=== PATIENT | male | born 1955 | race Caucasian/White ===

== ENCOUNTER 2024-07-26 12:52 | Emergency (ER) | payer MEDICARE, OTHER, SELFPAY ==
[2024-07-26 12:59] VITALS: BP 110/74; PULSE 68; TEMP 36.7; O2SAT 98; BMI 27.4
--- NOTE | 2024-07-26 13:06 | XR_ITS ---
The [address] [address] Patient Name: SRINIVAS MCKEON MRN: [id number] date: 1955 Sex: M Assigned Patient Location: ED.MAIN Current Patient Location: ED.MAIN Accession/Order Number: [id number] Exam Date: 07/26/2024 13:10 Report Date: 07/26/2024 13:44 At the request of: JUANY DAVIS Procedure: XR chest 1V EXAMINATION: XR chest 1V HISTORY: sob COMPARISON: 05/05/2022 TECHNIQUE: AP portable FINDINGS: LUNGS: No significant pulmonary parenchymal abnormalities. VASCULATURE: No increased pulmonary vasculature. PLEURA: No pneumothorax, effusion, or pleural thickening. CARDIAC: No cardiomegaly or cardiac silhouette abnormality. MEDIASTINUM: No visible mass or adenopathy. BONES: No fracture or visible bone lesion. OTHER: Negative. XR/XR chest 1V IMPRESSION: No acute cardiopulmonary process Electronically authenticated by: ANALILIA TORRES Date: 07/26/2024 13:44
--- NOTE | 2024-07-26 13:06 | ECG_ITS ---
The 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
--- NOTE | 2024-07-26 13:16 | ED_ITS ---
HPI - SOB/Dyspnea General Chief Complaint: Shortness of Breath/Dyspnea Stated Complaint: SENT BY URGENT CARE R/O PE Time Seen by Provider: 07/26/24 13:05 Source: patient Mode of arrival: walk-in Limitations: no limitations History of Present Illness HPI Narrative: 69 year old male presents to the ED for SOB, chest tightness. Onset was around 06/27/24. Denies fever, chills, N/V/D. Reports a mild cough, leg swelling. Denies recent travel or surgery. States he was at an urgent care today; reports a negative chest x-ray. States he was sent to the ED to rule out PE. Reports hx bronchitis. Related Data Home Medications ?Medication ?Instructions ?Recorded ?Confirmed omeprazole magnesium 10 mg oral 10 mg PO DAILY 07/26/24 07/26/24 suspension,delayed release (Prilosec) Previous Rx's ?Medication ?Instructions ?Recorded azithromycin 250 mg tablet See Rx Instructions PO .COMPLEX #6 07/26/24 (Zithromax Z-[place]) tabs benzonatate 200 mg capsule 200 mg PO TID PRN cough #20 caps 07/26/24 prednisone 10 mg tablet See Rx Instructions .Route 07/26/24 .COMPLEX #30 tabs Allergies Allergy/AdvReac Type Severity Reaction Status Date / Time No Known Drug Allergies Allergy Verified 07/26/24 12:59 Review of Systems ROS Constitutional Denies: fever or chills Ears, nose, mouth, and throat Denies: throat pain or neck pain Cardiovascular Reports: swelling of feet/ankles; Denies: chest pain Respiratory Reports: shortness of breath and cough; Denies: wheezing Gastrointestinal Denies: abdominal pain, nausea, vomiting or diarrhea Musculoskeletal Denies: back pain or neck pain Neurological Denies: headache, numbness in extremities or weakness in extremities PFSH PFSH Social History Little interest or pleasure in doing things: not at all Feeling down, depressed, or hopeless: not at all Exam Constitutional Vital Signs, click to edit/add: Last Vital Signs Temp 98.0 F 07/26/24 12:59 Pulse 68 07/26/24 12:59 Resp 18 07/26/24 12:59 BP 110/74 07/26/24 12:59 Pulse Ox 98 07/26/24 12:59 O2 Del Method Room Air 07/26/24 12:59 Common normals: no apparent distress and oriented x3 General appearance: cooperative HENMT Mouth: oral and palatal mucosa normal and lip normal Throat: posterior oropharynx normal Eye Common normals: conjunctivae normal and no scleral icterus Neck & C-Spine Common normals: supple Chest Chest: symmetrical chest wall rise Respiratory Common normals: normal respiratory effort and clear to auscultation bilaterally Effort & inspection: able to speak in complete sentences and symmetric chest movement Cardio Common normals: regular rate and regular rhythm Extremity Other: Minimal swelling bilateral lower legs. Neuro Common normals: oriented x3 and moves all extremities Sensorium/orientation: awake and alert Speech: speech normal Course Vital Signs Vital signs: Vital Signs Temperature 98.0 F 07/26/24 12:59 Pulse Rate 68 07/26/24 12:59 Respiratory Rate 18 07/26/24 12:59 Blood Pressure 110/74 07/26/24 12:59 Pulse Oximetry 98 07/26/24 12:59 Oxygen Delivery Method Room Air 07/26/24 12:59 Temperature 98.0 F 07/26/24 12:59 Pulse Rate 68 07/26/24 12:59 Respiratory Rate 18 07/26/24 12:59 Blood Pressure 110/74 07/26/24 12:59 Pulse Oximetry 98 07/26/24 12:59 Oxygen Delivery Method Room Air 07/26/24 12:59 MDM - SOB/Dyspnea MDM Narrative Medical decision making narrative: CBC and CMP were completed and were unremarkable. BNP was 218. Chest x-ray showed mild subpleural reticulation with a lower lobe predominance; this is nonspecific but could represent early interstitial lung disease. Findings were discussed with the patient. Prescriptions were provided for Zithromax, prednisone, and tessalon perles. He was encouraged to follow up with his pcp for a recheck, further evaluation and treatment. Differential Diagnosis Differential diagnosis: Likely acute exacerbation of chronic obstructive airways disease, congestive heart failure, community acquired pneumonia and other Medical Records Attestation: I reviewed the patient's medical records. Lab Data Attestation: I reviewed the patient's lab results. Labs: Lab Results 07/26/24 Range/Units 13:10 WBC 7.9 (4.0-11.0) 10^3/uL RBC 4.59 L (4.70-6.10) 10^6/uL Hgb 13.6 L (14.0-18.0) g/dL Hct 41.7 L (42.0-54.0) % MCV 90.8 (80.0-94.0) fL MCH 29.6 (25.9-34.0) pg MCHC 32.6 (29.9-35.2) g/dL RDW 12.9 (11.0-15.0) % Plt Count 278 (150-450) 10^3/uL MPV 9.7 (9.5-13.5) fL Neut % (Auto) 72.8 (43.0-75.0) % Lymph % (Auto) 16.5 L (20.5-60.0) % [place] % (Auto) 8.5 (1.7-12.0) % Eos % (Auto) 1.4 (0.9-7.0) % Baso % (Auto) 0.4 (0.2-2.0) % Neut # (Auto) 5.8 (1.4-6.5) 10^3/uL Lymph # (Auto) 1.3 (1.2-3.8) 10^3/uL [place] # (Auto) 0.7 (0.3-0.8) 10^3/uL Eos # (Auto) 0.1 (0.0-0.7) 10^3/uL Baso # (Auto) 0.0 (0.0-0.1) 10^3/uL Abs Immat Gran (auto) 0.03 (0.00-0.03) 10^3/uL Imm/Tot Granulo (auto) 0.4 (0.0-0.5) % Sodium 142 (136-145) mmol/L Potassium 4.6 (3.5-5.1) mmol/L Chloride 106 (98-107) mmol/L Carbon Dioxide 31.3 (21.0-32.0) mmol/L Anion Gap 9.3 BUN 14.0 (7.0-18.0) mg/dL Creatinine 0.92 (0.70-1.30) mg/dL Est GFR ( Amer) >60 (>=60 mL/min/1.73m^2) Est GFR (Non-Af Amer) >60 (>=60 mL/min/1.73m^2) BUN/Creatinine Ratio 15.2 Glucose 95 (74-106) mg/dL Calcium 9.2 (8.5-10.1) mg/dL Total Bilirubin 0.5 (0.2-1.0) mg/dL AST 22 (15-37) U/L ALT 24 (16-63) U/L Alkaline Phosphatase 80 (46-116) U/L Troponin I High Sens 4.9 (4.0-76.1) pg/mL NT-Pro-B Natriuret Pep 218.0 (<=900.0) pg/mL Total Protein 7.1 (6.4-8.2) g/dL Albumin 3.7 (3.4-5.0) g/dL Globulin 3.4 g/dL Albumin/Globulin Ratio 1.1 Imaging Data Chest x-ray: Attestation: I have reviewed the pertinent imaging results. Radiologist's impression: ITS Impressions Chest X-Ray 07/26/24 13:06 IMPRESSION: No acute cardiopulmonary process Electronically authenticated by: ANALILIA TORRES Date: 07/26/2024 13:44 Chest CTA 07/26/24 13:16 IMPRESSION: 1. No pulmonary embolus or other acute abnormality of the chest. 2. Mild subpleural reticulation with a lower lobe predominance. This is nonspecific but could represent early interstitial lung disease. Electronically authenticated by: RADHA NATHAN Date: 07/26/2024 15:02 ECG Data Attestation: ?I have reviewed the pertinent ECG results. (EKG was reviewed by the attending physician. It showed sinus rhythm at a rate of 57; first degree AV block. No acute ST elevation.) Interpretation: Measurements Intervals [place] Rate: 57 P: 53 [place]: 222 QRS: -11 QRSD: 108 T: 17 QT: 408 QTc: 403 Interpretive Statements 1100 Sinus rhythm 2231 First degree AV block 2440 Incomplete right bundle branch block 4068 Nonspecific Twave abnormality 9150 abnormal ECG No previous ECG available for comparison Discharge Plan Discharge Chief Complaint: Shortness of Breath/Dyspnea Clinical Impression: Cough, Dyspnea Patient Disposition: Home, Self-Care Time of Disposition Decision: 15:09 Condition: Good Mode of Transportation: Private Vehicle Prescriptions / Home Meds: New azithromycin [Zithromax Z-[place]] 250 mg tablet See Rx Instructions .ROUTE .COMPLEX Qty: 6 0RF Rx Instructions: For 250 mg dose pack: take 500 mg today (day 1), then 250 mg for 4 days (days 2-5) benzonatate 200 mg capsule 200 mg PO TID PRN (Reason: cough) Qty: 20 0RF prednisone 10 mg tablet See Rx Instructions .ROUTE .COMPLEX Qty: 30 0RF Rx Instructions: Take 5 tablets on days 1-2, 4 tabs on days 3-4, 3 tabs on days 5-6, 2 tabs on days 7-8, 1 tab on days 9-10. No Action Prilosec 10 mg susp,delayed release for recon 10 mg PO DAILY Print Language: Sammarinese Instructions: Upper Respiratory Infection (ED), Dyspnea (ED), Acute Cough (ED) Additional Instructions: Return to the ER for worsening symptoms. Follow up with your primary care provider for a recheck, further evaluation and treatment. Referrals: HERNANDEZ ODONNELL [Primary Care Provider] - 1 week Discharge Date/Time: 07/26/24 15:53
--- NOTE | 2024-07-26 13:16 | CT_ITS ---
[address] [address] Patient Name: SRINIVAS Hill LINDA MRN: [id number] date: 1955 Sex: M Assigned Patient Location: ER Current Patient Location: ER Accession/Order Number: [id number] Exam Date: 07/26/2024 14:00 Report Date: 07/26/2024 15:02 At the request of: LEE OLIVA Procedure: CT angio chest EXAM: CT angio chest HISTORY: SOB; r/o PE COMPARISON: Same day chest radiograph. TECHNIQUE: CT angio chest FINDINGS: OVERALL DIAGNOSTIC QUALITY: Full diagnostic quality LOWER NECK: No abnormality. CHEST: PULMONARY ARTERIES: Negative for pulmonary embolus LUNGS / AIRWAYS / PLEURA: Dependent bibasilar atelectasis. Mild subpleural reticulation with a lower lobe predominance. HEART / OTHER VESSELS: No significant abnormality. MEDIASTINUM / ESOPHAGUS: Small sliding hiatal hernia. LYMPH NODES: None enlarged. CHEST WALL: No significant abnormality. UPPER ABDOMEN: Normal. MUSCULOSKELETAL: No acute abnormality. Mildly exaggerated thoracic kyphosis. CT/CT angio chest IMPRESSION: 1. No pulmonary embolus or other acute abnormality of the chest. 2. Mild subpleural reticulation with a lower lobe predominance. This is nonspecific but could represent early interstitial lung disease. Electronically authenticated by: RADHA NATHAN Date: 07/26/2024 15:02
[2024-07-26 13:33] LABS: Basophils Percent Auto 0.4 % (0.2-2.0); Eosinophils Absolute Auto 0.1 10^3/uL (0.0-0.7); Eosinophils Percent Auto 1.4 % (0.9-7.0); Hematocrit 41.7 % (42.0-54.0); Hemoglobin 13.6 g/dL (14.0-18.0); Immature Granulocytes Abs Auto 0.03 10^3/uL (0.00-0.03); Immature Granulocytes Pct Auto 0.4 % (0.0-0.5); Lymphocytes Absolute Auto 1.3 10^3/uL (1.2-3.8); Lymphocytes Percent Auto 16.5 % (20.5-60.0); Mean Corpuscular HGB Conc 32.6 g/dL (29.9-35.2); Mean Corpuscular Hemoglobin 29.6 pg (25.9-34.0); Mean Corpuscular Volume 90.8 fL (80.0-94.0); Mean Platelet Volume 9.7 fL (9.5-13.5); Monocytes Absolute Auto 0.7 10^3/uL (0.3-0.8); Monocytes Percent Auto 8.5 % (1.7-12.0); Neutrophils Absolute Auto 5.8 10^3/uL (1.4-6.5); Neutrophils Percent Auto 72.8 % (43.0-75.0); Platelet Count 278 10^3/uL (150-450); Red Blood Count 4.59 10^6/uL (4.70-6.10); Red Cell Distribution Width 12.9 % (11.0-15.0); White Blood Count 7.9 10^3/uL (4.0-11.0)
[2024-07-26 13:42] LABS: Alanine Aminotransferase 24 U/L (16-63); Albumin Globulin Ratio 1.1; Albumin Level 3.7 g/dL (3.4-5.0); Alkaline Phosphatase 80 U/L (46-116); Anion Gap 9.3; Aspartate Amino Transferase 22 U/L (15-37); BUN Creatinine Ratio 15.2; Bilirubin Total 0.5 mg/dL (0.2-1.0); Calcium 9.2 mg/dL (8.5-10.1); Carbon Dioxide 31.3 mmol/L (21.0-32.0); Chloride 106 mmol/L (98-107); Estimated GFR (African America >60 (>=60 mL/min/1.73m^2); Estimated GFR (Non-African Ame >60 (>=60 mL/min/1.73m^2); Globulin 3.4 g/dL; Glucose 95 mg/dL (74-106); Potassium 4.6 mmol/L (3.5-5.1); Sodium 142 mmol/L (136-145); Total Protein 7.1 g/dL (6.4-8.2); Troponin I High Sensitivity 4.9 pg/mL (4.0-76.1)
== END 2024-07-26 15:53 | disposition home or self-care (01) ==
PROVIDERS: Nurse Practitioner Family; Emergency Provider Emergency Medicine; PCP Family Medicine
DX: R06.00 Dyspnea, unspecified (principal); R05.9 Cough, unspecified; R07.89 Other chest pain
CPT/HCPCS: 36415; 71045; 71275; 80053; 83880; 84484; 85025; 93005; 99285; Q9967

== ENCOUNTER 2024-08-24 11:30 | Observation (INO) | payer MEDICARE, OTHER, SELFPAY ==
[2024-08-24] VITALS (23 sets, daily range): BP systolic 108–148; BP diastolic 62–92; PULSE 74–92; TEMP 36.7–36.8; O2SAT 81–100; BMI 26.6; BMI 27.9
--- OUTSIDE RECORDS SUMMARY | 2024-08-24 11:37 | XMS_ITS | CCD ---
Author Organization [facility] Care Team Providers Care Intelligence Operations Specialist Name Role Phone DWEIK, RAED Referring Unavailable DWEIK, RAED Referring Unavailable DWEIK, RAED Referring Unavailable DWEIK, RAED Attending Unavailable ALVARADO CALDERON, AWAIS Admitting Unavailable ALVARADO CALDERON, AWAIS Attending Unavailable ALVARADO CALDERON, AWAIS Referring Unavailable ALVARADO CALDERON, AWAIS Referring Unavailable ALVARADO CALDERON, AWAIS Referring Unavailable ALVARADO CALDERON, AWAIS Attending Unavailable ALVARADO CALDERON, AWAIS Referring Unavailable ALVARADO CALDERON, AWAIS Referring Unavailable Chuck Odonnell Primary Care Provider [phone] Agustin Stoll Attending Provider Oledannielle, Agustin Unavailable BELLE, DR NG Admitting Unavailable [place], DR NG Attending Unavailable [place], DR NG Primary Care Unavailable [place], DR ANALILIA Lucero Consulting Unavailable [place], DR NG Consulting Unavailable [facility] A[facility] Consulting Unavailable [place], DR NG Admitting Unavailable [place], DR NG Attending Unavailable [place], DR NG Primary Care Unavailable [place], DR NG Consulting Unavailable [place], DR NG Admitting Unavailable [place], DR NG Attending Unavailable [place], DR NG Primary Care Unavailable [place], DR NG Consulting Unavailable [facility], ETHEL Consulting Unavailable ROSE AHUJA Attending Unavailable NON STAFF Primary Care Provider Unavailanalilia e Bernadette Mercado APRN Attending Provider Bernadette Mercado Admitting Unavailable Bernadette Mercado Attending Unavailable NON STAFF Primary Care Unavailable Medications Current Medications Medication Drug Class(es) Dates Sig (Normalized) Sig (Original) ibuprofen 200 mg oral tablet (2 sources) Nonsteroidal Anti-inflammatory Drug take 3 tablets by mouth twice daily as needed Ibuprofen 200 MG 3 tabs Orally BID prn Active Multivitamin preparation (2 sources) Start: 12-29-2020 take 1 tablet by mouth once daily Multivitamin Active 1 TAB PO Daily December 29, 2020 4:53pm Start: 12-29-2020 take 1 tablet by rosa m th once daily Multivitamin Active 1 TAB PO Daily December 29, 2020 12:00am Multivitamin Tablet (2 sources) Start: 12-29-2020 take 1 tablet by mouth once daily Multivitamin Tablet Active 1 TAB PO Daily December 28, 2020 11:00pm omeprazole 20 mg delayed release oral capsule (6 sources) Proton Pump Inhibitor Start: 12-29-2020 take 1 capsule by mouth once daily Omeprazole 20 mg Capsule,Delayed Release(Dr/Ec) Active 20 MG PO Daily December 28, 2020 11:00pm take 1 capsule by mouth once fredrick ly Omeprazole 40 MG 1 capsule 30 minutes before morning meal Orally Once a day Active Completed/Discontinued Medications Medication Drug Class(es) Dates Sig (Normalized) Sig (Original) acetaminophen 325 mg / oxyCODONE hydrochloride 5 mg oral tablet (2 sources) Opioid Agonist Start: 12-30-2020 take 1 tablet by mouth every four hours as needed for pain Percocet 5-325 MG 1 tablet as needed for pain Orally up to every 4 hrs for 5 days Dec, Not-Taking amoxicillin 875 mg / clavulanate 125 mg oral tablet (2 sources) Penicillin-class Antibacterial Start: 10-24-2023 End: 07-26-2024 take 1 tablet by mouth twice daily Amoxicillin-Pot Clavulanate 875-125 mg tablet Discontinued 1 TAB PO Twice daily 22 04October 23, 2023 11:00pm July 26, 2024 10:40am Problems Active Problems Problem Classification Problem Date Documented Da te Episodic/Chronic Other lower respiratory disease (1 source) Interstitial pulmonary disease, unspecified; Translations: [Interstitial pulmonary disease, unspecified] Onset: 05-01-2018 Chronic Other lower respiratory disease (5 sources) Shortness of breath; Translations: [Shortness of breath] Onset: 05-01-2018 07-26-2024 Episodic Other lower respiratory disease (4 sources) Dyspnea; Translations: [Shortness of breath] 07-26-2024 Episodic Other lower respiratory disease (2 sources) Dyspnea, unspecified; Translations: [Other respiratory abnormalities] 07-26-2024 Episodic Other upper respiratory infections (3 sources) Chronic sinusitis, unspecified; Translations: [Sinusitis] Onset: 05-10-2022 10-24-2023 Chronic Other upper respiratory infections (2 sources) Acute sinusitis; Translations: [Acute sinusitis, unspecified] 10-24-2023 Episodic Unclassified (3 sources) COUGH, UNSPECIFIED; Translations: [COUGH, UNSPECIFIED] Onset: 05-10-2022 Unclassified (3 sources) CONTACT W/AND (SUSP) EXPOS COVID-19; Translations: [CONTACT W/AND (SUSP) EXPOS COVID-19] Onset: 07-08-2021 Past or Other Problems Problem Classification Problem Date Documented Date Episodic/Chronic Intracranial injury (4 sources) Other specified intracranial injury with loss of consciousness of unspecified duration, initial encounter; Translations: [OTH SPECIFIED ICI LOC UNS DUR INIT] Onset: 01-13-2022 Episodic Other injuries and conditions due to external causes (1 source) Injury of cutaneous sensory nerve at forearm level, right arm, subsequent encounter; Translations: [Injury of cutaneous sensory nerve at forearm level, right arm, subsequent encounter S54.31XD] Onset: 04-09-2021 Resolved: 04-09-2021 Episodic Other upper respiratory disease (1 source) Other diseases of bronchus, not elsewhere classified; Translations: [Other diseases of bronchus, not elsewhere classified] Onset: 11-15-2017 Episodic Residual codes; unclassified (1 source) Other specified postprocedural states; Translations: [Other specified postprocedural states Z98.890] Onset: 04-09-2021 Resolved: 04-09-2021 Episodic Sprains and strains (1 source) Strain of muscle, fascia and tendon of other parts of biceps, right arm, subsequent encounter; Translations: [Rupture of right distal biceps tendon, subsequent encounter S46.211D] Onset: 04-09-2021 Resolved: 04-09-2021 Episodic Unclassified (1 source) COUGH, UNSPECIFIED; Translations: [COUGH, UNSPECIFIED] Onset: 05-05-2022 Unclassified (1 source) CONTACT W/AND (SUSP) EXPOS COVID-19; Translations: [CONTACT W/AND (SUSP) EXPOS COVID-19] Onset: 07-02-2021 Results Test Name Value Interpretation Reference Range Facility X-ray reportOrdered By: Carlos Reilly on 07-26-2024 Study report [facility] Main [address] [address] XRay Report Signed Patient: Ab Mae MR#: [id number] : 1955 Acct:[id number] Age/Sex: 69 / M ADM Date: 5 Loc: XDUC [facility] Dr: Bernadette Mercado RENTAL SALES ASSOCIATE Copies to: Bernadette Mercado APRN~ Ordering Provider: Bernadette Mercado APRN Date of Service: 07/26/24 XR/XR chest 2V*: COUGH Plain film chest 2 view HISTORY: Dry cough. Shortness of breath COMPARISON: None FINDINGS: SUPPORT DEVICES: None POSTSURGICAL CHANGES: None HEART: Within normal limits PULMONARY MERRICK: Within normal limits MEDIASTINUM: Unremarkable LUNGS AND PLEURA: No acute lung process, pleural effusion or pneumothorax identified. Minor interstitial changes BONY STRUCTURES: Thoracic spondylosis ADDITIONAL FINDINGS None XR/XR chest 2V* IMPRESSION: No acute process. Impression dictated by: Aram Reilly M.D.07/26/2024 11:27 AM Dictation Location: [place] [address] Transcribed By: [facility] 07/26/24 1127 Dictated By: Aram Reilly DO 07/26/24 1126 Signed By: 07/26/24 1127 [facility] XR chest 2V*on 07-26-2024 XR chest 2V* [address] [address] XRay Report Signed Patient: Ab Mae MR#: [id number] : 1955 Acct:[id number] Age/Sex: 69 / M ADM Date: 07/26/24 Loc: XDUC Room: [facility] Dr: Bernadette Mercado RENTAL SALES ASSOCIATE Copies to: Bernadette Mercado APRN Ordering Provider: Bernadette Mercado APRN Date of Service: 07/26/24 XR/XR chest 2V*: COUGH Plain film chest 2 view HISTORY: Dry cough. Shortness of breath COMPARISON: None FINDINGS: SUPPORT DEVICES: None POSTSURGICAL CHANGES: None HEART: Within normal limits PULMONARY MERRICK: Within normal limits MEDIASTINUM: Unremarkable LUNGS AND PLEURA: No acute lung process, pleural effusion or pneumothorax identified. Minor interstitial changes BONY STRUCTURES: Thoracic spondylosis ADDITIONAL FINDINGS None XR/XR chest 2V* IMPRESSION: No acute process. Impression dictated by: Aram Reilly M.D.07/26/2024 11:27 AM Dictation Location: [place] [address] Transcribed By: [facility] 07/26/24 1127 Dictated By: Aram Reilly DO 07/26/24 1126 Signed By: 07/26/[address] [facility] XR CHEST 2 Von 05-05-2022 XR CHEST 2 V EXAM: XR CHEST 2 V HISTORY: . Cough . COMPARISON: 10/13/2018 TECHNIQUE: Frontal and lateral chest FINDINGS: Heart and vascularity are unremarkable. Lungs are expanded and free of focal infiltrates. Spondylosis of the spine is noted. IMPRESSION: No acute heart or lung disease identified. Electronically authenticated by: ANALILIA MARTINEZ Date: 2022-05-05 18:30 Normal [facility] XR SINUSES 3 VIEWS OR GREATE Calvin 05-05-2022 XR SINUSES 3 VIEWS OR GREATER EXAMINATION: XR SINUSES 3 VIEWS OR GREATER HISTORY: Cough COMPARISON: No relevant comparison available. FINDINGS: MAXILLARY: No mucosal thickening or fluid level. ETHMOID: No mucosal thickening or fluid level. FRONTAL: No mucosal thickening or fluid level. SPHENOID: No mucosal thickening or fluid level. OTHER: Negative. IMPRESSION: Clear paranasal sinuses Electronically authenticated by: ANALILIA TORRES Date: 2022-05-05 19:09 Normal [facility] CT HEAD WO CONon 01-13-2022 CT HEAD WO CON EXAMINATION: CT HEAD WO CON HISTORY: Injury of head posteriorly. This 66-year-old now has headache with dizziness and visual disturbance. COMPARISON: None. TECHNIQUE: CT examination of the head without IV contrast. Sagittal and coronal reconstructions were obtained. Dose reduction techniques were achieved by using automated exposure control and/or adjustment of mA and/or kV according to patient size and/or use of iterative reconstruction technique. FINDINGS: The ventricles are not enlarged, the lateral ventricles are symmetric and the third ventricles in the midline. The sylvian fissures and cortical sulci are unremarkable. There is no evidence of an intracranial hemorrhage, mass lesion or apparent acute infarct. Benign calcifications are seen in the pineal complex and choroid plexus. The cerebellum and visualized brainstem are intact. The visualized paranasal sinuses are clear. There is no evidence of a skull fracture. IMPRESSION: There is no evidence of an intracranial hemorrhage, mass lesion or apparent acute infarct. The visualized sinuses are clear. Direct comparison with a previous study would be helpful in determining the chronicity of these findings. Electronically authenticated by: ETHEL TOLEDO Date: 2022-01-13 14:08 Normal [facility] Covid-19 PCR ([facility])on 06-05 SARS-CoV-2 (COVID-19) RNA RADHA+probe Ql (Unsp spec) Not detected Normal NOT DETECTED [facility] Comment on above: Result Comment: This test is not yet approved or cleared by the [place] FDA. When there are no FDA-approved or cleared tests available, and other criteria are met, FDA can make tests available under an emergency access mechanism called an Emergency Use Authorization (EUA). The EUA for this test is supported by the Head Holder of Health and Human Service's (HHS's) declaration that circumstances exist to justify the emergency use of in vitro diagnostics for the detection and/or diagnosis of the virus that causes COVID-19. This EUA will remain in effect (meaning this test can be used) for the duration of the COVID-19 declaration justifying emergency of IVDs, unless it is terminated or revoked by FDA (after which the test may no longer be used). When diagnostic testing is negative, the possibility of a false negative should be considered in the context of a patient's recent exposures and the presence of clinical signs and symptoms consistent with SARS-CoV-2. Performed By: #### C VDTB #### [facility] [address] [place] [address] [address] Maulik Gavin Albumin [Mass/volume] in Ser um or Plasmaon 12-29-2020 Albumin [Mass/Vol] 3.9 g/dL 3.2-5.5 [facility] Basophils Auto (Bld) [#/Vol] on 12-29-2020 Basophils (Bld) [#/Vol] 0.0 10*3/uL 0.0-0.2 [facility] Basophils/100 WBC Auto (Bld) on 12-29-2020 Basophils/100 WBC (Bld) 0.4 % [facility] Blood hemoglobin measurement (mass/volume)on 12-29-2020 Hemoglobin (Bld) [Mass/Vol] 12.7 g/dL 13.0-17.0 [facility] Blood leukocytes automated c ount (number/volume)on 12-29-2020 WBC (Bld) [#/Vol] 7.3 10*3/uL 4.5-11.0 [facility] Creatinine and Glomerular fi ltration rate.predicted panel (S/P/Bld)on 12-29-2020 Creatinine [Mass/Vol] 0.77 mg/dL 0.64-1.27 [facility] Eosinophils Auto (Bld) [#/Vo l]on 12-29-2020 Eosinophils (Bld) [#/Vol] 0.1 10*3/uL 0.0-0.45 [facility] Eosinophils/100 WBC Auto (Bl d)on 12-29-2020 Eosinophils/100 WBC (Bld) 1.9 % [facility] Erythrocyte distribution wid th Auto (RBC) [Ratio]on 12-29-2020 Erythrocyte distribution width (RBC) [Ratio] 13.6 % 12.0-14.8 [facility] Estimated glomerular filtrat ion rate (GFR) non- Americanon 12-29-2020 GFR/1.73 sq M.predicted among non-blacks MDRD (S/P/Bld) [Vol rate/Area] > 60 mL/Min [facility] Globulin Calc (S) [Mass/Vol] on 12-29-2020 Globulin (S) [Mass/Vol] 2.3 g/dL [facility] Hematocrit Auto (Bld) [Volum e fraction]on 12-29-2020 Hematocrit (Bld) [Volume fraction] 37.6 % 38.8-50.0 [facility] - Hematology and Cell countson 12-29-2020 Nucleated RBC/100 WBC (Bld) [Ratio] 0.1 % 0-0.5 [facility] Lymphocytes Auto (Bld) [#/Vo l]on 12-29-2020 Lymphocytes (Bld) [#/Vol] 1.4 10*3/uL 1.00-4.8 [facility] Lymphocytes/100 WBC Auto (Bl d)on 12-29-2020 Lymphocytes/100 WBC (Bld) 19.6 % [facility] MCH Auto (RBC) [Entitic mass ]on 12-29-2020 MCH (RBC) [Entitic mass] 31.0 pg 27.5-35.2 [facility] MCHC Auto (RBC) [Mass/Vol]on 12-29-2020 MCHC (RBC) [Mass/Vol] 33.8 g/dL 32.5-35.6 [facility] MCV Auto (RBC) [Entitic vol] on 12-29-2020 MCV (RBC) [Entitic vol] 91.8 fL 83.5-101 [facility] Monocytes Auto (Bld) [#/Vol] on 12-29-2020 Monocytes (Bld) [#/Vol] 0.7 10*3/uL 0.0-0.8 [facility] Monocytes/100 WBC Auto (Bld) on 12-29-2020 Monocytes/100 WBC (Bld) 9.0 % [facility] Neutrophils Auto (Bld) [#/Vo l]on 12-29-2020 Neutrophils (Bld) [#/Vol] 5.1 10*3/uL 1.8-7.7 [facility] Neutrophils/100 WBC Auto (Bl d)on 12-29-2020 Neutrophils/100 WBC (Bld) 69.1 % [facility] No Panel Informationon 12-29 Estimated GFR () > 60 mL/Min [facility] Comment on above: GFR estimated refere nce range: According to KDOQI guidelines, <60 ml/min/1.73m2 is sufficient to diagnose a patient with chronic kidney disease. Pharmacy Creatinine Clearance (Chem N/A [facility] Platelet mean volume Auto (B ld) [Entitic vol]on 12-29-2020 Platelet mean volume (Bld) [Entitic vol] 8.1 fL 6.6-10.1 [facility] Platelets Auto (Bld) [#/Vol] on 12-29-2020 Platelets (Bld) [#/Vol] 276 10*3/uL 150-450 [facility] Protein [Mass/volume] in Ser um or Plasmaon 12-29-2020 Protein [Mass/Vol] 6.2 g/dL 6.1-7.9 [facility] RBC Auto (Bld) [#/Vol]on RBC (Bld) [#/Vol] 4.10 10*6/uL 3.90-5.60 [facility] Serum or plasma alanine rojo otransferase measurement without P-5'-P (enzymatic activion 12-29-2020 ALT No additional P-5'-P [Catalytic activity/Vol] 21 U/L 10-60 [facility] Serum or plasma albumin/glob ulin mass ratioon 12-29-2020 Albumin/Globulin [Mass ratio] 1.7 {ratio} [facility] Serum or plasma alkaline lucinda sphatase measurement (enzymatic activity/volume)on 12-29-2020 ALP [Catalytic activity/Vol] 58 U/L 32-92 [facility] Serum or plasma aspartate am inotransferase measurement (enzymatic activity/volume)on 12-29-2020 AST [Catalytic activity/Vol] 19 U/L 10-42 [facility] Serum or plasma calcium ayesha urement (mass/volume)on 12-29-2020 Calcium [Mass/Vol] 9.3 mg/dL 8.2-10.2 [facility] Serum or plasma chloride slime surement (moles/volume)on 12-29-2020 Chloride [Moles/Vol] 103 mmol/L 95-114 [facility] Serum or plasma glucose ayesha urement (mass/volume)on 12-29-2020 Glucose [Mass/Vol] 85 mg/dL 70-100 [facility] Comment on above: ADA recommended refe rence rangeRandom Glucose Reference Range is dependent on time and content of last meal. Glucose of more than 200 mg/dL in a nonstressed, ambulatory subject supports the diagnosis of Diabetes Mellitus. Serum or plasma potassium me asurement (moles/volume)on 12-29-2020 Potassium [Moles/Vol] 4.0 mmol/L 3.5-5.1 [facility] Serum or plasma sodium measu rement (moles/volume)on 12-29-2020 Sodium [Moles/Vol] 140 mmol/L 136-146 [facility] Serum or plasma total biliru bin measurement (mass/volume)on 12-29-2020 Bilirubin [Mass/Vol] 0.7 mg/dL 0.3-1.2 [facility] Serum or plasma total carbon dioxide measurement (moles/volume)on 12-29-2020 CO2 [Moles/Vol] 26.2 mmol/L 22.0-30.0 [facility] Serum or plasma urea nitroge n measurement (mass/volume)on 12-29-2020 Urea nitrogen [Mass/Vol] 10 mg/dL 9 [facility] CNOVon 05-01-2018 CNOV Office Visit (PULMMN) BEAR MAE ([id number]) 1955 M Date Time Provider Department 05/01/18 1:00 PM AWAIS POTTS During your visit today, we recorded the following information about you: Temperature Pulse Blood pressure 98.2 degrees 80/minute 132/75 Awais Mancera MD 05/01/2018 2:00 PM Signed Sarcoidosis and Interstitial Lung Disease Program Res[facility] [place] FOLLOW UP NOTE Problem List: Problem List Noted Noted By Resolved Resolved By Beryllium sensitization 10/31/2017 Jc Grant Initial HPI(09/19/17): 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 Describes SOB with heavy physical activity now which is a big change for him over the past year. Some chest tightness in am - and rare palpitations. No cough or wheezing. Some lightheadedness but no syncope and mild bilat LE edema is newer. Dexilant used for many years to control GERD with some mild dysphagia - but no regurg. EGD many years ago with dilation. Wt stable. Fragmented sleep is newer with night sweats - soaking for past 6 mos or so. Possible snoring hx - does not wake refreshed. Variable orthopnea but no PND. No fevers, rash but some arthralgias, no myalgias. No change BANDB. Today: Returns today doing well, stable, but still complaining of SOB and lightheadedness. No change in those symptoms, MMRC class 1. Medications for the interstitial lung disease are none. No recent infections. MMRC Dyspnea Scale: 0. Not troubled by breathlessness except on strenuous exercise 1. Short of breath when hurrying or walking up a slight hill 2. Walks slower than contemporaries on the level because of breathlessness, or has to stop for breath when walking at own pace 3. Stops for breath after about 100 m or after a few minutes on the level 4. Too breathless to leave the house, or breathless when dressing or undressing No past medical history on file. No past surgical history on file. Current Outpatient Prescriptions: Dexlansoprazole (DEXILANT) 60 mg CpDM Take 1 capsule by mouth once daily. No current facility-administere d medications for this visit. No family history on file. Social History Marital status: Spouse name: Years of education: Number of children: Social History Main Topics Smoking status: Former Smoker Packs/day: 0.50 Years: 10.00 Quit date: 09/19/1994 Smokeless tobacco: Never Used Alcohol use: Yes Comment: socially REVIEW OF SYSTEMS GENERAL: No weight loss, malaise or fevers HEAD: Negative for frequent or significant headaches, no hair loss EYES: No changes in vision, no eye redness NOSE: No nose bleeds, no nasal congestion NECK: Negative for lumps, goiter, pain and significant neck swelling RESPIRATORY: See HPI. CARDIOVASCULAR: Negative for chest pain, leg swelling or palpitations GI: No nausea, vomiting, or diarrhea : No history of dysuria, frequency or incontinence MUSCULOSKELETAL: Negative for joint pain or swelling, back pain or muscle pain SKIN: Negative for lesions, rash, and itching EXTREMITIES: No clubbing, no nail changes, no Raynaud's NEURO: See HPI. Physical Exam: BP 132/75 Pulse 80 Temp 36.8 ?C (98.2 ?F) (Temporal Artery) SpO2 96% General appearance: Well appearing, alert, in no acute distress, well-hydrated, well nourished. Skin: Skin color, texture, turgor normal, no suspicious rashes or lesions Head: Normocephalic, no masses, lesions or alopecia Eyes: No jaundice, no redness Extremities: No deformities, edema, skin discoloration, clubbing or cyanosis. Musculoskeletal: No joint swelling, no deformity Neuro: Gait normal. Grossly non-focal. Data Reviewed: PFTs much improvedm FVC 4.48 liters (110%) <- 4.04 liters (99%) DLCO 22.16 (85%) <- 21.08 (80%) CT chest from today. Independently reviewed by me. It should mild subpleural reticulation on bases, still present on prone. Pulmonary Function Tests: FVC DLCO MM/YY abs % abs % Impression/Plan: Patient Active Problems That Need Monitoring: Diagnosis - ILD (interstitial lung disease) (HCC) Priority: A Overview Note: - Mr. Mae started the follow up with us due to beryllium exposure and sensitization. However, his bronchoscopy with TBBx was negative for beryllium lung disease. He returns today with same symptoms of SOB and lightheadedness. His PFT is improved significantly, and the CT chest is stable. I do see early subpleural reticulations in bases, still present on prone. However, I believe we should do some heart tests before we explore more these early findings of ILD. Assessment AND Plan Note: - Flu shot today. - Will get EKG and echo. If normal, will consider stress test and then maybe CPET. - If all tests above are normal, will discuss further with him about lung biopsies. I already discussed some of that with him today, but we both agree that we should hold off on invasive procedures such as VATS lung biopsy for now. - I will contact him with the results. I spent 25 minutes in this consultation, with > 50% of that time being face to face with Mr. Mae for disease counseling. Awais Mancera MD May 01, 2018 1:44 PM Awais Mancera MD 05/01/2018 1:33 PM Signed - Flu shot - Schedule echocardiogram and EKG - I will contact you with the results - We will decide on next steps (e.g. Stress Test) after those results Awais Mancera MD 05/01/2018 1:44 PM Written - Flu shot today. - Will get EKG and echo. If normal, will consider stress test and then maybe CPET. - If all tests above are normal, will discuss further with him about lung biopsies. I already discussed some of that with him today, but we both agree that we should hold off on invasive procedures such as VATS lung biopsy for now. - I will contact him with the results. Referring Provider: AWAIS POTTS [[id number]] Allergies As of Date: 05/01/2018 (No Known Allergies) Date Reviewed: 05/01/2018 Reviewed by: Awais Mancera - Fully Assessed Reason for Visit: Recheck [92] Primary Visit Diagnosis:SOB (shortness of breath) [R06.02] Other Visit Diagnoses:Need for vaccination [Z23] ILD (interstitial lung disease) ([facility]) [J84.9] Order(s):ECG COMPLETE W INTERPRETATION [ECG01] Order #: [id number] FUTURE ECHO [750125] Order #: [id number]: 1 FUTURE ADMIN OF INFLUENZA VACCINE [[id number]] Order #: [id number]: 1 INFLUENZA VACCINE QUADRIVALENT AGE 3 YRS PLUS + IM [[id number]] Order #: [id number] Prescriptions as of 05/01/2018 Sig: DEXLANSOPRAZOLE 60 MG CAPSULE* Take 1 capsule by mouth once * Problem List As Of Date 05/01/2018 Noted Resolved Encounter for screening for respiratory disorde*INVALID FOR* ILD (interstitial lung disease) ([facility]) [J84.9] INVALID FOR* Priority: A More... Other instructions from your clinician: - Flu shot - Schedule echocardiogram and EKG - I will contact you with the results - We will decide on next steps (e.g. Stress Test) after those results Encounter Status:Closed by AWAIS POTTS MD on 05/01/18 Normal [facility] CT CHEST WO IVCONon 05-01-20 CT CHEST WO IVCON * * *Final Report* * * DATE OF EXAM: May 01 2018 11:06AM [facility] [place] CHEST [place] / PROCEDURE REASON: Interstitial pulmonary disease, unspecified * * * * Physician Interpretation * * * * EXAMINATION: CHEST CT WITHOUT CONTRAST CLINICAL HISTORY: Interstitial pulmonary disease, unspecified Technique: Spiral CT acquisition of the chest from the thoracic inlet to the upper abdomen without contrast. The exam is supplemented by multiple 1 mm free breathing images obtained at noncontiguous levels. MQ: [id number] CT Dose-Length Product: 239 mGy*cm CT Dose Reduction Employed: Automated exposure control (AEC) Comparison: CT chest dated 09/19/2017 RESULT: Limitations: None Lines, tubes, and devices: None. Lung parenchyma and pleura: The central airways are patent. No endobronchial lesion is seen. The lungs are free of focal consolidation. Mild subpleural reticular opacities are seen predominantly in the lower lobes. The subpleural reticular opacities in the lower lobes persist on prone images. There is no evidence of traction bronchiectasis or honeycombing. No groundglass opacities are seen. A few small (less than 5 mm) pulmonary nodules are stable. For reference, a 4 mm nodule along the left major fissure (image 129, series 3) and a 3 mm nodule along the right minor fissure (image 135, series 3) are stable and likely represent intrafissural lymph nodes. No new or enlarging suspicious pulmonary nodules are seen. No pleural effusion or focal pleural thickening is identified. There is no pneumothorax. No significant air trapping is seen on free breathing images. A left minor fissure is seen. Thoracic inlet, heart, and mediastinum: No enlarged mediastinal, hilar, supraclavicular, or axillary lymph nodes are seen. There is a three-vessel left aortic arch. The aorta and main pulmonary artery are normal in course and caliber. Scattered atherosclerotic calcifications are seen in the coronary arteries although the exam is not optimized for evaluation of the coronary arteries. The cardiac chambers are normal in size. There is no pericardial effusion or pericardial thickening. The thyroid gland is normal. A small hiatal hernia is seen. Bones and soft tissues: No suspicious lytic or blastic lesions are seen in the bones. Degenerative changes are seen in the thoracic spine. The soft tissues of the chest wall are normal. Upper abdomen: A cyst is partially imaged in the right kidney. The visible portions of the liver, spleen, pancreas, gallbladder, adrenal glands and left kidney are normal. The visible stomach and bowel are normal. IMPRESSION: 1. Mild subpleural reticular opacities predominantly in the lower lobes suggest early interstitial abnormality. No evidence of honeycombing. 2. No new or enlarging suspicious pulmonary nodules. 3. No thoracic lymphadenopathy. Bailing Machine Operator: PSCHilda Transcribe Date/Time: May 01 2018 1:21P Dictated by : AISHA REIS MD This examination was interpreted and the report reviewed and electronically signed by: AISHA REIS MD on May 01 2018 2:14PM EST [id number] Normal [facility] ECG COMPLETE W INTERPRETATIO Non 05-01-2018 ECG COMPLETE W INTERPRETATION NAME : BEAR MAE PID : [id number] : 1955 Gender : Male Race : ORD : [id number] Procedure Date : May 01 2018 14:23:56 Edit Date : May 02 2018 11:08:40 Diagnosis:SINUS BRADYCARDIA NONSPECIFIC T WAVE ABNORMALITY ABNORMAL ECG Confirmed by MAURA PRABHAKAR M.D. ([id number]) on 05/02/2018 11:08:32 AM Ventricular Rate : 57 BPM Atrial Rate : 57 BPM P-R Interval : 198 ms QRS Duration : 114 ms Q-T Interval : 426 ms QTC Calculation(Bezet) : 414 ms P Low Moor : 56 degrees R Low Moor : -17 degrees T Low Moor : 8 degrees Test Reason : Location : 119 : A17 Overread By : MAURA PRABHAKAR M.D. Edited By : MAURA PRABHAKAR M.D. 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 Describes SOB with heavy physical activity now which is a big change for him over the past year. Some chest tightness in am - and rare palpitations. No cough or wheezing. Some lightheadedness but no syncope and mild bilat LE edema is newer. Dexilant used for many years to control GERD with some mild dysphagia - but no regurg. EGD many years ago with dilation. Wt stable. Fragmented sleep is newer with night sweats - soaking for past 6 mos or so. Possible snoring hx - does not wake refreshed. Variable orthopnea but no PND. No fevers, rash but some arthralgias, no myalgias. No change BANDB. Today: Returns today doing well, stable, but still complaining of SOB and lightheadedness. No change in those symptoms, MMRC class 1. Medications for the interstitial lung disease are none. No recent infections. MMRC Dyspnea Scale: 0. Not troubled by breathlessness except on strenuous exercise 1. Short of breath when hurrying or walking up a slight hill 2. Walks slower than contemporaries on the level because of breathlessness, or has to stop for breath when walking at own pace 3. Stops for breath after about 100 m or after a few minutes on the level 4. Too breathless to leave the house, or breathless when dressing or undressing No past medical history on file. No past surgical history on file. Current Outpatient Prescriptions: Dexlansoprazole (DEXILANT) 60 mg CpDM Take 1 capsule by mouth once daily. No current facility-administere d medications for this visit. No family history on file. Social History Marital status: Spouse name: Years of education: Number of children: Social History Main Topics Smoking status: Former Smoker Packs/day: 0.50 Years: 10.00 Quit date: 09/19/1994 Smokeless tobacco: Never Used Alcohol use: Yes Comment: socially REVIEW OF SYSTEMS GENERAL: No weight loss, malaise or fevers HEAD: Negative for frequent or significant headaches, no hair loss EYES: No changes in vision, no eye redness NOSE: No nose bleeds, no nasal congestion NECK: Negative for lumps, goiter, pain and significant neck swelling RESPIRATORY: See HPI. CARDIOVASCULAR: Negative for chest pain, leg swelling or palpitations GI: No nausea, vomiting, or diarrhea : No history of dysuria, frequency or incontinence MUSCULOSKELETAL: Negative for joint pain or swelling, back pain or muscle pain SKIN: Negative for lesions, rash, and itching EXTREMITIES: No clubbing, no nail changes, no Raynaud's NEURO: See HPI. Physical Exam: BP 132/75 Pulse 80 Temp 36.8 ?C (98.2 ?F) (Temporal Artery) SpO2 96% General appearance: Well appearing, alert, in no acute distress, well-hydrated, well nourished. Skin: Skin color, texture, turgor normal, no suspicious rashes or lesions Head: Normocephalic, no masses, lesions or alopecia Eyes: No jaundice, no redness Extremities: No deformities, edema, skin discoloration, clubbing or cyanosis. Musculoskeletal: No joint swelling, no deformity Neuro: Gait normal. Grossly non-focal. Data Reviewed: PFTs much improvedm FVC 4.48 liters (110%) <- 4.04 liters (99%) DLCO 22.16 (85%) <- 21.08 (80%) CT chest from today. Independently reviewed by me. It should mild subpleural reticulation on bases, still present on prone. Pulmonary Function Tests: FVC DLCO MM/YY abs % abs % Impression/Plan: Patient Active Problems That Need Monitoring: Diagnosis - ILD (interstitial lung disease) ([facility]) Priority: A Overview Note: - Mr. Mae started the follow up with us due to beryllium exposure and sensitization. However, his bronchoscopy with TBBx was negative for beryllium lung disease. He returns today with same symptoms of SOB and lightheadedness. His PFT is improved significantly, and the CT chest is stable. I do see early subpleural reticulations in bases, still present on prone. However, I believe we should do some heart tests before we explore more these early findings of ILD. Assessment AND Plan Note: - Flu shot today. - Will get EKG and echo. If normal, will consider stress test and then maybe CPET. - If all tests above are normal, will discuss further with him about lung biopsies. I already discussed some of that with him today, but we both agree that we should hold off on invasive procedures such as VATS lung biopsy for now. - I will contact him with the results. I spent 25 minutes in this consultation, with > 50% of that time being face to face with Mr. Mae for disease counseling. Awais Mancera MD May 01, 2018 1:44 PM Normal [facility] Protein mass conc HNO ID: [id number] Author: Julio Win (Veronica) VERONICA Guevara Service: Radiology Author Type: Clinical Sleep Medicine Physician Type: Progress Notes Filed: 05/01/2018 11:02 AM Note Text: Radiology Service Progress Note PATIENT NAME: Bear Mae DATE OF SERVICE: May 01, 2018 TIME: 10:54 AM PATIENT IDENTITY VERIFICATION COMPLETED USING TWO (2) METHODS: Patient confirmed name verbally and ID band matches.. PATIENT GENDER DATA: Male PATIENT RELEVANT IMPLANT DATA REVIEWED: Yes RADIOLOGY DEPARTMENT: CT; Exam(s) Completed: Chest PERIPHERAL IV DATA: Not applicable SIGNED BY: VERONICA Elizabeth May 01, 2018 10:54 AM Normal [facility] CNCOon 02-13-2018 CNCO Letter Text . February 13, 2018 Mr. Bear Mae [address] [address] RE: [facility]# [id number] Dear Mr. Mae, I am writing this letter to update you on your evaluation at the [facility] regarding your history of beryllium exposure. During your visit on 10/31/2017 you stated that you were feeling worse than the initial visit, getting tired more easily, with occasional episodes of lightheadedness. You also stated it was taking more effort to breathe, and that you were having occasional cough. On examination, your lung exam was normal, with good bilateral air entry, no wheezing, no rales. Pulmonary function testing revealed a forced vital capacity of 4.04 L (99% of predicted), an FEV1 of 2.95 L (97% of predicted) and an FEV1/FVC forced vital capacity ratio of 73%. Your total lung capacity was 5.94 L (95% of predicted) and DLCO was 21.08 (80% of predicted). Even though those were normal results, the FVC and the DLCO were lower than the previous test from 09/19/2017 (FVC 4.32 L and DLCO 24.85). A CT scan of the chest from 09/19/17 revealed findings suggestive of mild/early interstitial abnormality. There was no associated architectural distortion, traction bronchiectasis or honeycombing. You underwent a follow-up flexible bronchoscopy with bronchoalveolar lavage and transbronchial biopsy on 11/15/17. The bronchoalveolar lavage fluid differential cell count revealed 1% neutrophils, 21% lymphocytes, 5% monocytes, and 73% alveolar macrophages. Transbronchial biopsy revealed mild, non-specific, chronic inflammation, but no granulomas. A lymphocyte proliferation test on the bronchoalveolar lavage could not be interpreted. A lymphocyte proliferation test on the blood was negative. Based on these tests and your prior testing, you have evidence of beryllium sensitization but there is no evidence of chronic beryllium disease. We recommend a follow up around April of 2018, with repeat pulmonary function tests and a CT scan of the chest. Thank you for choosing the [facility] for your care. If you have any questions, if I can be of any further assistance or if you would like to schedule a follow-up appointment or bronchoscopy, please do not hesitate to contact my office. This letter was sent to you per your request. Please feel free to share with your physicians or other healthcare providers. Sincerely, Awais Mancera MD [facility] AFB Cult and Stainon 018 AFB Cult and Stain Sp. Request/Comment: - RML Smear Result - No acid fast bacilli seen by fluorochrome stain Culture Result - No Acid Fast Bacilli isolated after 42 days Normal [facility] Comment on above: Performed By: #### Omid FC ####[facility] [place], [place] [phone] BAL Routineon 11-15-2017 BAL COMMENT SEE COMMENT Normal [facility] Comment on above: Result Comment: Test Not Indicated Performed By: #### TONIE GUIDO ####[facility] [address], [place] [phone] BAL REVIEW SEE COMMENT Normal [facility] Comment on above: Result Comment: Test Not Indicated Performed By: #### TONIE GUIDO ####[facility] [address] Ave[place], [place] [phone] Clarity Nom (U) Slightly turbid Normal [facility] Comment on above: Performed By: #### TONIE GUIDO ####[facility] [address] AveCSav[place], [place] [phone] Color Nom (U) Colorless Normal [facility] Comment on above: Performed By: #### TONIE GUIDO ####[facility] [address], [place] [phone] Macro% 73 % Normal [facility] Comment on above: Performed By: #### TONIE GUIDO ####[facility] [address] Ave[place] [phone] Monocytes/100 WBC (Bld) 5 % Normal [facility] Comment on above: Performed By: #### TONIE GUIDO ####[facility] [phone] Neutrophils/100 WBC (Bld) 1 % Normal 0-1 [facility] Comment on above: Performed By: #### TONIE GUIDO ####[facility] [address] Ave[place] [phone] Nucleated Cells, BAL 165 /uL Normal [facility] Comment on above: Performed By: #### TONIE GUIDO ####[facility] [address] Ave[place]level[place] [phone] RBC #/vol (Bld) 0.49624 10*6/uL Normal [facility] Comment on above: Performed By: #### TONIE GUIDO ####[facility] [address] Ave[place]leveland[place] [phone] Slide Number BAL [id number] Normal [facility] Comment on above: Performed By: #### TONIE GUIDO ####[facility] [address] Ave[place] [phone] Suprntnt Clarity Clear Normal [facility] Comment on above: Performed By: #### TONIE GUIDO ####[facility] [address], [place] [phone] Suprntnt Color Colorless Normal [facility] Comment on above: Performed By: #### TONIE GUIDO ####[facility] [address] [place], [place] [phone] Ki 11-15-2017 [facility] Outreach ([id number]) BEAR MAE ([id number]) 1955 M Date Time Provider Department 11/15/17 AWAIS POTTS [id number] During your visit today, we recorded the following information about you: Allergies As of Date: 11/15/2017 (No Known Allergies) Date Reviewed: 11/15/2017 Reviewed by: Clari Dawson (Rn), RN - Fully Assessed Primary Visit Diagnosis:Beryllium exposure [Z77.018] Order(s):AFB CULT + STAIN [SQAFC] Order #: [id number] BAL ROUTINE BFL [SQBALAVI] Order #: [id number] FUNGAL CULT + SMEAR [SQFCULSM] Order #: [id number] CELL COUNT + DIFF BFL [SQCCBF] Order #: [id number] LPT TO BERYLLIUM BAL [SQBALBE] Order #: [id number] LPT TO BERYLLIUM BLD [SQBLDBE] Order #: [id number] SURGICAL PATHOLOGY [[id number]] Order #: [id number] Prescriptions as of 11/15/2017 Sig: DEXLANSOPRAZOLE 60 MG CAPSULE* Take 1 capsule by mouth once * Problem List As Of Date 11/15/2017 Noted Resolved Encounter for screening for respiratory disorde*INVALID FOR* Encounter Status:Closed by AWAIS POTTS MD on 11/15/17 Normal [facility] Fungal Cult / Smearon 2017 Fungal Cult / Smear Sp. Request/Comment: - RML Smear Result - No fungus seen. Culture Result - No Fungus isolated after 34 days Normal [facility] Comment on above: Performed By: #### F CUL ####[facility] [address] [place], [place] [phone] HISTORY PHYSICALon HISTORY PHYSICAL HNO ID: [id number] Author: Jose Torres (Benjy) Service: Critical Care Author Type: Fellow Type: HANDP Filed: 11/15/2017 8:27 AM Note Text: Attestation signed by Awais Potts at 11/15/2017 9:14 AM Awais Mancera MD November 15, 2017 9:13 AM PROCEDURAL SEDATION HISTORY AND PHYSICAL EXAM SERVICE DATE: 11/15/2017 SERVICE TIME: 8:27 AM Subjective HPI: This is a 62 year old male who presents with worsening SOB and night sweats, history of beryllium exposure and positive proliferation test here for beryllium protocol bronchoscopy with BAL and Bx. With exception of SOB he is feeling well and has no complaints. PAST ANESTHESIA HISTORY: No history of adverse event No past medical history on file. No past surgical history on file. Prior to Admission medications as of 11/15/17 0730 Medication Sig Last Dose Taking Dexlansoprazole (DEXILANT) 60 mg CpDM Take 1 capsule by mouth once daily. 11/14/2017 at Unknown time Yes ALLERGIES No Known Allergies Objective PHYSICAL EXAM: The remainder of the physical exam is noncontributory. AIRWAY: Airway Visualization of Uvula: Yes Mouth opening greater than 2 fingerbreadths: Yes Neck Full Range of Motion: Yes LUNGS: Lungs clear to auscultation, Good diaphragmatic excursion CARDIAC: Normal S1 and S2; no rubs, murmurs, or gallops Assessment/Plan ASA Class: ASA Class:: Patient with mild systemic disease Active Problems: * No active hospital problems. * Resolved Problems: * No resolved hospital problems. * Medication and Non-Pharmacologic VTE Prophylaxis/Anticoag ulants VTE Prophylaxis: VTE prophylaxis appropriate Provisional Diagnosis/Treatment Plan: Bronchoscopy with BAL and Bx. SEDATION GOAL: Moderate SIGNATURE: Jose Torres MD PATIENT NAME: Bear Mae DATE: November 15, 2017 TIME: 8:25 AM PAGER: [phone] [facility] HOSP 11-15-2017 [facility] Patient Update ([id number]) BEAR MAE ([id number]) 1955 M Date Time Provider Department 11/15/17 AWAIS POTTS [id number] During your visit today, we recorded the following information about you: Allergies As of Date: 11/15/2017 (No Known Allergies) Date Reviewed: 11/15/2017 Reviewed by: Clari Dawson (Rn), RN - Fully Assessed Primary Visit Diagnosis:Beryllium exposure [Z77.018] Order(s):SURGICAL PATHOLOGY [[id number]] Order #: [id number] Prescriptions as of 11/15/2017 Sig: DEXLANSOPRAZOLE 60 MG CAPSULE* Take 1 capsule by mouth once * Problem List As Of Date 11/15/2017 Noted Resolved Encounter for screening for respiratory disorde*INVALID FOR* Encounter Status:Closed by AWAIS POTTS MD on 11/15/17 [facility] LPT to JeffreyelsiecarolinaBRYANjulianna 11-15 Alveolar Macro % 73 % Normal [facility] Comment on above: Performed By: #### B TANIA, BALBE ####[facility] [address], [place] [phone] Beryllium 1.0 uM D3 0.8 SI [facility] Comment on above: Performed By: #### TONIE GUIDO ####[facility] [address] AveCleveland[place] [phone] Beryllium 1.0 uM D5 1.1 SI [facility] Comment on above: Performed By: #### TONIE GUIDO ####[facility] [address] AveCleveland[place] [phone] Beryllium 10 uM D3 0.6 SI [facility] Comment on above: Performed By: #### TONIE GUIDO ####[facility] [phone] Beryllium 10 uM D5 0.1 SI [facility] Comment on above: Performed By: #### TONIE GUIDO ####[facility]ClevelCarol[address] [place] [phone] Beryllium 100 uM D3 0.9 SI [facility] Comment on above: Performed By: #### TONIE GUIDO ####[facility] [address] Ave[address]leveland[place] [phone] Beryllium 100 uM D5 0.1 SI [facility] Comment on above: Performed By: #### TONIE GUIDO ####[facility] [address] [phone] Rylie Albicans 0.6 SI Low >2.0 [facility] Comment on above: Performed By: #### TONIE GUIDO ####[facility] [address] Ave[address]leveland[place] [phone] Cell Control 447 cpm [facility] Comment on above: Performed By: #### TONIE GUIDO ####[facility], [place] [phone] Interpretation Uninterpretable response to Beryllium. Lymphocyte response to PHA and/or Rylie is decreased. Lymphocyte response to Beryllium could be masked. Suggest repeat in 3 to 6 months. Normal [facility] Comment on above: Performed By: #### TONIE GUIDO ####[place] [id number] Ave[address] [place] [phone] Lymphocytes/100 WBC (Bld) 21 % High 6-8 [facility] Comment on above: Performed By: #### TONIE GUIDO ####[place] [address] [address] [place] [phone] PHA Stim Index 14.9 SI Normal >10.0 [facility] Comment on above: Performed By: ###TONIE CORONEL ####[place] [phone] Phytohemagglutin 6673 cpm Normal [facility] Comment on above: Performed By: #### TONIE GUIDO ####[place] [phone] Plate ID Number [id number] Normal [facility] Comment on above: Performed By: ###TONIE CORONEL ####[place] [address] [address] [place] [phone] Viability % 96 % Normal [facility] Comment on above: Performed By: #### TONIE GUIDO ####[address] [place] [phone] LPT to Beryllium,BLDon 11-15 Beryllium 1.0 uM D5 0.9 SI Normal <3.0 [facility] Comment on above: Performed By: ###Junior FLORES ####[address]aniel [place] [phone] Beryllium 1.0 uM D6 0.9 SI Normal <3.0 [facility] Comment on above: Performed By: #### B LDBE ####[facility] [place] [phone] Beryllium 10 uM D5 0.5 SI Normal <3.0 [facility] Comment on above: Performed By: #### B LDBE ####[place] [address] [address] [place] [phone] Beryllium 10 uM D6 0.3 SI Normal <3.0 [facility] Comment on above: Performed By: #### B LDBE ####[place] [address] [address] [place] [phone] Beryllium 100 uM D5 0.3 SI Normal <3.0 [facility] Comment on above: Performed By: #### B LDBE ####[place] [address] [address] [place] [phone] Beryllium 100 uM D6 0.1 SI Normal <3.0 [facility] Comment on above: Performed By: #### B LDBE ####[place] [address] [address] [place] [phone] Rylie Albicans 2.4 SI Normal >2.0 [facility] Comment on above: Performed By: #### B LDBE ####[place] [address] [address] [place] [phone] Cell Control 835 cpm Normal [facility] Comment on above: Performed By: #### B LDBE ####[place] [address], [place] [phone] Interpretation Normal response to Beryllium. All six Beryllium indices are less than 3.0. Normal [facility] Comment on above: Performed By: #### B LDBE ####[facility] [place], [place] [phone] PHA Stim Index 152 SI Normal >50.0 [facility] Comment on above: Performed By: #### B LDBE ####[facility] [place], [place] [phone] Phytohemagglutin [id number] cpm Normal [facility] Comment on above: Performed By: #### B LDBE ####[place] [id number] [place], [place] [phone] Plate ID Number [id number] [facility] Comment on above: Performed By: #### B LDBE ####[place] [id number] [place], [place] [phone] Reviewed Reviewed by Analilia Yang M.D. ([id number]) [facility] Comment on above: Performed By: #### B LDBE ####[facility] [place], [place] [phone] Performed By: #### B TONIE MARIN ####[facility] [place], [place] [phone] PT EDon 11-15-2017 PT ED HNO ID: [id number] Author: Ami Arnett (Rn), RN Service: (none) Author Type: Registered Nurse Type: Patient Education Filed: 11/15/2017 10:18 AM Note Text: POST OP LEARNING RESPONSE INSTRUCTION PROVIDED TO: Patient and family member METHOD OF INSTRUCTION: Individual instruction Written instruction - handouts Verbal instruction PATIENT / FAMILY RESPONSE: Verbalizes understanding of: POST-PROCEDURE INSTRUCTIONS-Correct actions to take to reduce post procedure complications FOLLOW-UP PLAN: Patient instructed to call with any further issues SUPPLEMENTAL MATERIAL: None REFERRAL (RECOMMENDATION): None Electronically Signed By: Ami Arnett RN In Department: ADMITTING [facility] SURGICAL PATHOLOGYon 018 SURGICAL PATHOLOGY Specimen originated from [facility] Specimen #: [id number] Submitting Physician: AWAIS MANCERA MD FINAL DIAGNOSIS Lung, right lower lobe, transbronchial biopsy - Mild chronic inflammation (See comment). SM/kr 11/16/2017 COMMENT This biopsy consists of five fragments of alveolated lung parenchyma. There is focal, minimal chronic inflammation. A few macrophages are present within alveoli and occasional type 2 pneumocytes are prominent. No granulomas or malignant cells are identified. Five deeper levels (for a total of 125 alveolated lung fragments) were examined, and these show no additional findings. The findings are non-specific. Driss Paiz M.D. (Electronic Signature) SPECIMEN SUBMITTED A: RIGHT LOWER LOBE LUNG BIOPSY CLINICAL DATA BERYLLIUM EXPOSURE GROSS DESCRIPTION A. Received in formalin are multiple pieces of de anda-red, soft tissue aggregating to 0.9 x 0.2 x 0.1 cm. Totally submitted in one cassette. Gross examination performed at [facility], [address] [place] [address] NM 11/15/2017 4:29:25 PM Date of Report: 11/16/2017 Date of Procedure: 11/15/2017 Date of Receipt: 11/15/2017 Submitted by: AWAIS MANCERA MD Additional Physician(s): JC COLLINS ([id number]) Location: PULMONARY MAIN Diagnostic interpretation performed at [place] [address]. Normal [facility] PT EDon 11-09-2017 PT ED HNO ID: [id number] Author: Maryam Bethea (Rn), RN Service: Nursing Author Type: Registered Nurse Type: Patient Education Filed: 11/09/2017 4:16 PM Note Text: AMBULATORY PATIENT EDUCATION TOPIC: Bronchoscopy READINESS TO LEARN COGNITIVE ABILITY: Alert and oriented MOTIVATION TO LEARN: Eager FAMILY SUPPORT: None - Unavailable/disinter ested INSTRUCTION PROVIDED TO: Patient PATIENT LEARNS BEST BY: Individual Instruction FACTORS AFFECTING LEARNING: None PHYSICAL LIMITATIONS AFFECTING LEARNING: None LEARNING RESPONSE DIAGNOSIS: Lung Disease METHOD OF INSTRUCTION: Individual instruction PATIENT / FAMILY RESPONSE: Verbalizes understanding of: PRE-PROCEDURE INSTRUCTIONS-Correct action to take to follow pre-procedure instructions FOLLOW-UP PLAN: Complete - No need for follow-up REFERRAL (RECOMMENDATION): None Drug and Disease specific literature provided. Time Spent 5 minutes. Electronically Signed By: Maryam Bethea RN In Department: [facility] Patient:Bear Mae MRN: Height:5' 7 (1.702 m) Weight:170 lb (77.111 kg) Outpatient Medications as of 11/15/17: Dexlansoprazole (DEXILANT) 60 mg CpDM Admission/Clinic Administered Medications as of 11/15/17: albuterol 2.5 mg /3 mL (0.083 %) 2.5 mg (PROVENTIL) Problem List: Encounter for screening for respiratory disorder [Z13.83] Allergies: No Known Allergies Date Verified:11/15/17 Lab Values No results within the last 30 days for the following basenames: K,HCT Progress Notes ([facility] PUL LAB H23): Lucrecia Serrano 11/01/2017 3:22 PM Signed Called patient at [phone] (home) and reached voicemail. Left message for patient to call office to schedule/reschedule appointment. Lucrecia Serrano 11/04/2017 3:39 PM Signed Called patient again, at [phone] (home) and reached voicemail. Left message for patient to call office to schedule/reschedule appointment. Progress Notes (PULM MAIN): Awais Potts 10/31/2017 2:51 PM Addendum Bronchoscopy Request: Cleared for scheduling October 31, 2017 Please schedule patient for the following: Standard Bronch w/TBBX (Beryllium protocol) Visit and Bronchoscopy: Bronch only, visit not needed Estimated Time: TIER 1: I HOUR - room 3 Physician Performing Bronchoscopy: Dr. Alvarado (First option Tuesdays between 9AM and 11AM. Second option Mondays between 9AM and 11AM). General anesthesia?No- Room 3 Needs Labs: No, Dr Michelle orellana with no labs Needs EKG: No Needs CT prior: No Does the pt need cardiac clearance? No Is he/she on anticoagulants/anti- plt therapy? No Nursing Considerations: (ie: senior living, best contact, diabetic etc) none Percepta Testing Eligible: No Diagnosis: Beryllium exposure/sensitizati on Referred by: Dr. Collins Reviewed by: Dr. Michelle Mancera MD October 31, 2017 2:49 PM Previous Version Normal [facility] CNOVon 10-31-2017 CNOV Office Visit (PULMMN) BEAR MAE ([id number]) 1955 M Date Time Provider Department 10/31/17 1:15 PM JC COLLINS During your visit today, we recorded the following information about you: Temperature Pulse Blood pressure 97.6 degrees 67/minute 125/76 Jc Collins 11/05/2017 12:34 PM Signed Mr. Mae is a 62 year old male here for follow up evaluation regarding beryllium sensitization Encounter for screening for respiratory disorder Summary of prior history: History of beryllium exposure. experiencing SOB and night sweats Positive blood lymphocyte proliferation test to beryllium Normal pulmonary function tests. CT scan of the chest: early ILD changes S: Today he feesl worse than last visit. Gets tired more easily occasionally gets light headed It takes more effort to breathe occasional cough O: On examination: Constitutional: BP 125/76 Pulse 67 Temp 36.4 ?C (97.6 ?F) (Temporal Artery) SpO2 98% General: No acute distress. Skin: no cyanosis, no edema, no rash ENT: no thrush, no lymphadenopathy Endocrine: no thyromegaly Cardiovascular: Regular rate and rhythm no added sounds Respiratory: Good bilateral air entry. No wheezing. No rales GI: Abdomen soft and lax Musculoskeletal: no LE edema, no clubbing Neuro: normal gait Psych: Alert and oriented, Normal affect PFTs: Significant decline in chivo, lV and DLCO since last visit september 19, 2017 less than 3 months ago. 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 Chronic beryllium disease (CBD) needs to be excluded. Recommend bronchoscopy with bronchoalveolar lavage and transbronchial biopsy. Risks, benefits, and alternatives of bronchoscopy discussed with Mr. Mae. Mr. Mae understands and he wants to proceed. Will schedule. Introduced him to Michelle Spencer who will be doing the bronchoscopy. I spent 40 minutes in this visit, with more than 50% of the time devoted to patient counseling regarding Encounter for screening for respiratory disorder. Jc Collins MD Referring Provider: SELF [200] Allergies As of Date: 10/31/2017 (No Known Allergies) Date Reviewed: 10/31/2017 Reviewed by: Jc Collins - Fully Assessed Reason for Visit: Recheck [92] Visit Diagnosis:Encounter for screening for respiratory disorder [Z13.83] Prescriptions as of 10/31/2017 Sig: DEXLANSOPRAZOLE 60 MG CAPSULE* Take 1 capsule by mouth once * Problem List As Of Date 10/31/2017 Noted Resolved Encounter for screening for respiratory disorde*INVALID FOR* Follow-up and Disposition History Recorded Encounter Status:Closed by JC COLLINS MD on 11/05/17 Normal [facility] 10-31-2017 HOSP Patient Update (PULMMN) BEAR MAE ([id number]) 1955 M Date Time Provider Department 10/31/17 AWAIS POTTS During your visit today, we recorded the following information about you: Awais Mancera MD 10/31/2017 2:51 PM Addendum Bronchoscopy Request: Cleared for scheduling October 31, 2017 Please schedule patient for the following: Standard Bronch w/TBBX (Beryllium protocol) Visit and Bronchoscopy: Bronch only, visit not needed Estimated Time: TIER 1: I HOUR - room 3 Physician Performing Bronchoscopy: Dr. Alvarado (First option Tuesdays between 9AM and 11AM. Second option Mondays between 9AM and 11AM). General anesthesia?No- Room 3 Needs Labs: No, Dr Michelle orellana with no labs Needs EKG: No Needs CT prior: No Does the pt need cardiac clearance? No Is he/she on anticoagulants/anti- plt therapy? No Nursing Considerations: (ie: senior living, best contact, diabetic etc) none Percepta Testing Eligible: No Diagnosis: Beryllium exposure/sensitizati on Referred by: Dr. Collins Reviewed by: Dr. Michelle Mancera MD October 31, 2017 2:49 PM Allergies As of Date: 10/31/2017 (No Known Allergies) Date Reviewed: 10/31/2017 Reviewed by: Jc Collins - Fully Assessed Reason for Visit: Bronchoscopy Scheduling [84008] Cmt: Initial bronchoscopy note Reason For Visit History Recorded Prescriptions as of 10/31/2017 Sig: DEXLANSOPRAZOLE 60 MG CAPSULE* Take 1 capsule by mouth once * Problem List As Of Date 10/31/2017 Noted Resolved Encounter for screening for respiratory disorde*INVALID FOR* Follow-up and Disposition History Recorded Encounter Status:Closed by AWAIS POTTS MD on 10/31/17 [facility] PROGRESSon 10-31-2017 Protein mass conc HNO ID: [id number] Author: Awais Mancera Service: (none) Author Type: Physician Type: Progress Notes Filed: 10/31/2017 4:52 PM Note Text: Bronchoscopy Request: Cleared for scheduling October 31, 2017 Please schedule patient for the following: Standard Bronch w/TBBX (Beryllium protocol) Visit and Bronchoscopy: Bronch only, visit not needed Estimated Time: TIER 1: I HOUR - room 3 Physician Performing Bronchoscopy: Dr. Alvarado (First option Tuesdays between 9AM and 11AM. Second option Mondays between 9AM and 11AM). General anesthesia?No- Room 3 Needs Labs: No, Dr Michelle orellana with no labs Needs EKG: No Needs CT prior: No Does the pt need cardiac clearance? No Is he/she on anticoagulants/anti- plt therapy? No Nursing Considerations: (ie: senior living, best contact, diabetic etc) none Percepta Testing Eligible: No Diagnosis: Beryllium exposure/sensitizati on Referred by: Dr. Collins Reviewed by: Dr. Michelle Mancera MD October 31, 2017 2:49 PM Normal [facility] Protein mass conc HNO ID: [id number] Author: Jc Collins Service: (none) Author Type: Physician Type: Progress Notes Filed: 11/05/2017 12:34 PM Note Text: Mr. Mae is a 62 year old male here for follow up evaluation regarding beryllium sensitization Encounter for screening for respiratory disorder Summary of prior history: History of beryllium exposure. experiencing SOB and night sweats Positive blood lymphocyte proliferation test to beryllium Normal pulmonary function tests. CT scan of the chest: early ILD changes S: Today he feesl worse than last visit. Gets tired more easily occasionally gets light headed It takes more effort to breathe occasional cough O: On examination: Constitutional: BP 125/76 Pulse 67 Temp 36.4 ?C (97.6 ?F) (Temporal Artery) SpO2 98% General: No acute distress. Skin: no cyanosis, no edema, no rash ENT: no thrush, no lymphadenopathy Endocrine: no thyromegaly Cardiovascular: Regular rate and rhythm no added sounds Respiratory: Good bilateral air entry. No wheezing. No rales GI: Abdomen soft and lax Musculoskeletal: no LE edema, no clubbing Neuro: normal gait Psych: Alert and oriented, Normal affect PFTs: Significant decline in chivo, lV and DLCO since last visit september 19, 2017 less than 3 months ago. 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 Chronic beryllium disease (CBD) needs to be excluded. Recommend bronchoscopy with bronchoalveolar lavage and transbronchial biopsy. Risks, benefits, and alternatives of bronchoscopy discussed with Mr. Mae. Mr. Mae understands and he wants to proceed. Will schedule. Introduced him to Michelle Spencer who will be doing the bronchoscopy. I spent 40 minutes in this visit, with more than 50% of the time devoted to patient counseling regarding Encounter for screening for respiratory disorder. Jc Collins MD Normal [facility] Vital Signs Date Time Vital Sign Value Performing Clinician Facility 07-26-2024 10:47-0500 Body height 170.18 cm [facility] 07-26-2024 10:47-0500 Body mass index (BMI) [Ratio] 27.7 kg/m2 [facility] 07-26-2024 10:47-0500 Body temperature 98.7 [degF] [facility] 07-26-2024 10:47-0500 Body weight 80.39 kg [facility] 07-26-2024 10:47-0500 Diastolic blood pressure 70 mm[Hg] [facility] 07-26-2024 10:47-0500 Heart rate 83 /min [facility] 07-26-2024 10:47-0500 Respiratory rate 17 /min [facility] 07-26-2024 10:47-0500 SaO2% (BldA) [Mass fraction] 98 % [facility] 07-26-2024 10:47-0500 Systolic blood pressure 118 mm[Hg] [facility] 10-24-2023 10:13-0400 Body height 170.18 cm [facility] 10-24-2023 10:13-0400 Body mass index (BMI) [Ratio] 27.3 kg/m2 [facility] 10-24-2023 10:13-0400 Body temperature 98.3 [degF] [facility] 10-24-2023 10:13-0400 Body weight 79.37 kg [facility] 10-24-2023 10:13-0400 Heart rate 68 /min [facility] 10-24-2023 10:13-0400 Respiratory rate 18 /min [facility] 10-24-2023 10:13-0400 SaO2% (BldA) [Mass fraction] 99 % [facility] 04-09-2021 11:00-0400 Body height 170.18 cm Agustin Stoll Other [employer] Other 04-09-2021 11:00-0400 Body mass index (BMI) [Ratio] 25.84 kg/m2 Agustin Stoll Other [employer] Other 04-09-2021 11:00-0400 Body weight 74.84 kg Agustin Stoll Other [employer] Other Encounters Encounter Date Encounter Type Care Provider Facility Start: 07-26-2024 End: 07-26-2024 ambulatory NON STAFF [facility] Work Phone: Start: 07-26-2024 End: 07-26-2024 Patient encounter procedure [facility] Work Phone: Start: 12-13-2023 End: 12-13-2023 ambulatory ROSE Omid AHUJA Not Available Start: 10-24-2023 End: 10-24-2023 ambulatory [facility] Work Phone: Start: 10-24-2023 End: 10-24-2023 Patient encounter procedure [facility] Work Phone: Start: 06-09-2023 End: 06-09-2023 ambulatory Agustin Stoll Other [employer] Other Start: 06-09-2023 Telephone encounter Agustin Stoll [facility] Start: 05-05-2022 End: 05-06-[address] CHUCK ODONNELL Facility:[facility] Start: 01-13-2022 End: 01-14-[address] CHUCK ODONNELL Facility:[facility] Start: 07-02-2021 End: 07-02-[address] CHUCK ODONNELL Facility:[facility] Start: 04-09-2021 Office outpatient vi sit 15 minutes Agustin Stoll [facility] Start: 12-29-2020 End: 12-29-2020 Patient encounter procedure Chuck Odonnell Work Phone: -[facility] Start: 12-29-2020 End: 12-29-2020 Patient encounter procedure Chuck Odonnell Work Phone: -[facility] Start: 05-01-2018 End: 10-04-2018 [facility] Start: 11-15-2017 End: 11-15-2017 Patient encounter procedure AWAIS MANCERA [facility] Start: 10-31-2017 End: 11-07-2017 Patient encounter procedure JC COLLINS [facility] Start: 10-31-2017 End: 01-03-2018 Patient encounter procedure RAROSANGELA STATONLarry [facility] Procedures Date Procedure Procedure Detail Performing Clinician Start: 07-26-2024 Plain chest X-ray Start: 12-29-2020 Plain X-ray of right shoulder Chuck Mosqueda Phone: Plan of Treatment Date Care Activity Detail Author XR Chest 2 Views [facility] Immunizations Immunization Date Immunization Notes Care Provider Fa cility 09-15-2020 COVID-19 mRNA, Comir caroline (Pfizer) [facility] 08-25-2020 COVID-19 mRNA, Comir caroline (Pfizer) [facility] Payers Date Payer Category Payer Self-pay [id number] 2022 Unknown [id number] 1960 Medicare [id number] [facility] [employer] [facility] [place] [id number] 1960 Unknown [id number] 1955 Unknown [id number] 2.16.84 [id number] 1955 Unknown [id number] .16.84 [id number] 1955 Unknown [id number] 2.16.84 [id number] 1955 Unknown [id number] 2.16.84 [id number] Unknown [id number] Unknown [id number] 2.16.8 [id number] Social History Date Type Detail Facility Start: 12-29-2020 End: 12-31-2020 Tobacco smoking status NHIS Ex-smoker (finding) [facility] Start: 1955 Sex Assigned At Male F [facility] Sex Assigned At Sex Assigned At Bir th [employer] Other Start: 07-26-2024 End: 07-27-2024 Sex Male (finding) [facility] Medical Equipment Procedure Code Equipment Code Equipment Origin al Text Equipment Identifier Dates Repair, tendon Orthopaedic bone screw, bioabsorbable [id number] Start: 12-31-2020 Evaluation note 07-26-2024 Note Date & Type Note Facility 07-26-2024 Evaluation note Diagnosis Onset Date Resolution Dyspnea acute July 26, 2024 10:40am Shortness of breath acute Janua 2024 10:40am [facility] Work Phone: Evaluation note 04-09-2021 Note Date & Type Note Facility 04-09-2021 Evaluation note Encounter Date Diagnosis Assessment Notes Apr, Rupture of right distal biceps tendon, subsequent encounter (ICD-10 - S46.211D) Patient instructed on strengthening exercises. Activity as tolerated Apr, Injury of cutaneous sensory nerve at forearm level, right arm, subsequent encounter (ICD-10 - S54.31XD) Apr, Other specified postprocedural states (ICD-10 - Z98.890) [employer] Other History general Narrative - Reported 12-02-2020 Note Date & Type Note Facility 12-02-2020 History general N arrative - Reported Type Medical History denies significant past medical history Surgical History hernia repair 2004 Surgical History EGD 2009 Surgical History right distal biceps reapir 12/21 20 [facility] [employer] Other Evaluation note Note Date & Type Note Facility Evaluation note No assessment information availa ble [facility] Evaluation note Note Date & Type Note Facility Evaluation note No Information [facility] [employer] Other Evaluation note Note Date & Type Note Facility Evaluation note Diagnosis Onset Date Resolution Dyspnea acute July 26, 2024 10:40am Shortness of breath acute Janua 2024 10:40am [facility] Work Phone: Summary Purpose Family History No Family History Records Found Relationship Condition Age at Onset Recorded Date/T yandel grandparent Diabetes mellitus Unknown Advance Directives No Advanced Directives Records Found Advance Directive Response Recorded Date/ Time Advance Directives No January 15 2:32pm Advance Directive Response Recorded Date/ Time Advance Directives No January 15 1:32pm Chief Complaint and Reason for Visit Chief Complaint Bicep Tear Chief Complaint Sinus congestion Chief Complaint Admit Date Sinus congestion, cough July 26 10:40am Reason for Visit Admit Date Dyspnea July 26, 2024 1 0:40am Shortness of breath July 26, 2024 1 0:40am Additional Source Comments (unrecognized sect ion and content) No Status Records FoundNo Status Records FoundNo Status Records FoundNo Status Records Found INFORMATION SOURCE (unrecogn ized section and content) DATE CREATED AUTHOR 10/06/2018 [facility] DATE CREATED AUTHOR AUTHOR'S ORGANIZ ATION 05/10/2022 [facility] DATE CREATED AUTHOR AUTHOR'S ORGANIZ ATION 12/13/2023 [facility] DATE CREATED AUTHOR AUTHOR'S ORGANIZ ATION 08/06/2024 [facility] Goals (unrecognized section and content) Goals may be documented in a n alternate sectionNo InformationNo InformationGoals may be documented in an alternate sectionGoals may be documented in an alternate sectionGoals may be documented in an alternate section REASON FOR VISIT (unrecogniz ed section and content) Recheck Right BicepClinical Care Teams (unrecognized sec tion and content) Team Status: Active Member Role Status Dates Chuck Odonnell DO Primary Care Provider Active Team Status: Inactive Member Role Status Dates Bernadette Mercado APRN Attending Provider Active S tart: October 24, 2023 End: October 24, 2023 Chuck Odonnell DO Primary Care Provider Active Start: October 24, 2023 End: October 24, 2023 Team Status: Active Member Role Status Dates NON STAFF Primary Care Provider Active Team Status: Inactive Member Role Status Dates Bernadettetanner Mercado APRN Attending Provider Active S tart: July 26, 2024 End: July 26, 2024 NON STAFF Primary Care Provider Active Start: July 26, 2024 End: July 26, 2024 Team Status: Active Member Role Status Dates NON STAFF Primary Care Provider Active Start: July 26, 2024 Bernadette Mercado APRN Attending Provider Active S tart: July 26, 2024 Team Status: Inactive Member Role Status Dates NON STAFF Primary Care Provider Active Start: July 26, 2024 End: July 26, 2024 Bernadettetanner Mercado APRN Attending Provider Active S tart: July 26, 2024 End: July 26, 2024 FOR RECORDS PERTAINING TO PATIENTS WHO ARE OR HAVE BEEN ENROLLED IN A CHEMICAL DEPENDENCY/SUBSTANCEABUSE PROGRAM, SOME INFORMATION MAY BE OMITTED. This clinical summary was aggregated from multiple sources. Caution should be exercised in using it in the provision of clinical care. This summary normalizes information from multiple sources, and as a consequence, information in this document may materially change the coding, format and clinical context of patient data. In addition, data may be omitted in some cases. CLINICAL DECISIONS SHOULD BE BASED ON THE PRIMARY CLINICAL RECORDS. [facility] [employer] provides no warranty or guarantee of the accuracy or completeness of information in this document.
--- NOTE | 2024-08-24 11:43 | ECG_ITS ---
[facility] Test Date: 2024-08-24 Pat Name: SRINIVAS MCKEON Department: Room: - Gender: Male [employer] General: : 1955 Requested By: Order Number: [id number] Reading MD: ABHISHEK WILSON Measurements Intervals [place] Rate: 66 P: 42 WI: 198 QRS: -38 QRSD: 100 T: 20 QT: 376 QTc: 390 Interpretive Statements Sinus rhythm 1100 Sinus rhythm 2440 Incomplete right bundle branch block Low voltage across the precordium 5211 Minimal voltage criteria for LVH, may be normal variant 7200 Abnormal left axis deviation 9150 abnormal ECG Electronically Signed On 08-24-2024 17:46:37 EST by ABHISHEK WILSON
--- NOTE | 2024-08-24 11:43 | ED.GENADUL1 ---
HPI HPI - General Adult General Chief complaint: Chest Pain Stated complaint: urti complaints Time Seen by Provider: 08/24/24 11:33 Source: patient Mode of arrival: walk-in Limitations: no limitations History of Present Illness HPI narrative: 69-year-old male presents for chest pain. It is on the left side of his chest that comes and goes since last night. When it comes on he gets short of breath. No fever or cough or hemoptysis. No injury or unusual activity. He has no personal history of heart disease. The pain is moderate to severe at times. Related Data Home Medications ?Medication ?Instructions ?Recorded ?Confirmed omeprazole magnesium 10 mg oral 10 mg PO DAILY 07/26/24 08/24/24 suspension,delayed release (Prilosec) Allergies Allergy/AdvReac Type Severity Reaction Status Date / Time No Known Drug Allergies Allergy Verified 08/24/24 11:38 Opioid HPI Opioid Management Most Recent Opioid Data: No Data to Display Review of Systems ROS Narrative A ten point review of systems is negative except as noted above. PFSH PFSH Social History Little interest or pleasure in doing things: not at all Feeling down, depressed, or hopeless: not at all Exam Narrative Exam Narrative: Nurses note and vital signs reviewed and patient is not hypoxic. General: The patient appears in no apparent distress. Patient is resting comfortably on cart. Skin: Warm, dry, no pallor noted. There is no rash noted. Head: Normocephalic, atraumatic Eye: Normal conjunctiva, no drainage Ears, Nose, Mouth, and Throat: oral mucosa is moist. Nares patent. Cardiovascular: Regular Rate and Rhythm Respiratory: Patient is in no distress, no accessory muscle use, lungs are clear to auscultation, no wheezing, rales or rhonchi Back: non-tender GI: Soft and nontender Musculoskeletal: The patient has no evidence of calf tenderness, no pitting edema, symmetrical pulses noted bilaterally Neurological: A&O, normal speech Psychiatric: Cooperative Constitutional Vital Signs, click to edit/add: Last Vital Signs Temp 98.2 F 08/24/24 11:33 Pulse 88 08/24/24 13:50 Resp 19 08/24/24 13:50 BP 130/91 08/24/24 12:20 Pulse Ox 99 08/24/24 12:30 O2 Del Method Room Air 08/24/24 11:33 Course Vital Signs Vital signs: Vital Signs Temperature 98.2 F 08/24/24 11:33 Pulse Rate 92 H 08/24/24 11:33 Respiratory Rate 18 08/24/24 11:33 Blood Pressure 141/92 H 08/24/24 11:33 Pulse Oximetry 100 08/24/24 11:33 Oxygen Delivery Method Room Air 08/24/24 11:33 Temperature 98.2 F 08/24/24 11:33 Pulse Rate 88 08/24/24 13:50 Respiratory Rate 19 08/24/24 13:50 Blood Pressure 130/91 08/24/24 12:20 Pulse Oximetry 99 08/24/24 12:30 Oxygen Delivery Method Room Air 08/24/24 11:33 Medical Decision Making MDM Narrative Medical decision making narrative: 2 sets of troponin are negative and EKG shows no acute findings. CTA was performed because of slightly elevated D-dimer and shows no PE. His symptoms are concerning and he will be admitted for observation. Treatment diagnosis and disposition were discussed with the patient. Differential Diagnosis Differential Diagnosis: Chest pain, STEMI, NSTEMI, unstable angina Lab Data Lab results reviewed: Yes I reviewed the patient's lab results Labs: Lab Results 08/24/24 08/24/24 Range/Units 11:47 13:24 WBC 9.7 (4.0-11.0) 10^3/uL RBC 4.73 (4.70-6.10) 10^6/uL Hgb 14.1 (14.0-18.0) g/dL Hct 43.3 (42.0-54.0) % MCV 91.5 (80.0-94.0) fL MCH 29.8 (25.9-34.0) pg MCHC 32.6 (29.9-35.2) g/dL RDW 13.2 (11.0-15.0) % Plt Count 293 (150-450) 10^3/uL MPV 9.5 (9.5-13.5) fL Seg Neuts % (Manual) 87.0 H (43.0-75.0) Lymphocytes % (Manual) 6.0 L (20.5-60.0) % Monocytes % (Manual) 6.0 (1.7-12.0) % Eosinophils % (Manual) 1.0 (0.9-7.0) % Basophils % (Manual) 0.0 L (0.2-2.0) % Neutrophils # (Manual) 8.43 H (1.4-6.5) 10^3/uL Lymphocytes # (Manual) 0.58 L (1.20-3.80) 10^3/uL Monocytes # (Manual) 0.58 (0.30-0.80) 10^3/uL Eosinophils # (Manual) 0.09 (0.00-0.70) 10^3/uL Basophils # (Manual) 0.00 (0.00-0.10) 10^3/uL D-Dimer 0.78 H* (<=0.59) mg/L FEU Sodium 140 (136-145) mmol/L Potassium 4.3 (3.5-5.1) mmol/L Chloride 105 (98-107) mmol/L Carbon Dioxide 29.0 (21.0-32.0) mmol/L Anion Gap 10.3 BUN 18.0 (7.0-18.0) mg/dL Creatinine 0.98 (0.70-1.30) mg/dL Est GFR ( Amer) >60 (>=60 mL/min/1.73m^2) Est GFR (Non-Af Amer) >60 (>=60 mL/min/1.73m^2) BUN/Creatinine Ratio 18.4 Glucose 137 H (74-106) mg/dL Calcium 9.2 (8.5-10.1) mg/dL Troponin I High Sens 5.7 5.6 (4.0-76.1) pg/mL Imaging Data Chest x-ray: Radiologist's impression: ITS Impressions Chest X-Ray 08/24/24 11:50 IMPRESSION: No acute cardiopulmonary pathology. Impression dictated by: Delmar Jackson M.D.08/24/2024 11:59 AM Dictation Location: [place] [address] Electronically authenticated by: [id number] Y Date: 08/24/2024 11:59 Chest CTA 08/24/24 12:23 IMPRESSION: No pulmonary embolus. No acute cardiopulmonary pathology. Mild dependent opacities are noted suspicious for atelectasis. There is also slight interstitial prominence throughout which appears to be chronic. Impression dictated by: Delmar Jackson M.D.08/24/2024 1:14 PM Dictation Location: [place] [address] Electronically authenticated by: [id number] Y Date: 08/24/2024 13:14 ECG Data Attestation: I personally reviewed and interpreted this ECG as follows: (EKG on my interpretation shows sinus rhythm with a rate of 66 and no acute change) Discharge Plan Discharge Chief Complaint: Chest Pain Clinical Impression: Chest pain Patient Disposition: Admitted as Observation Time of Disposition Decision: 13:59 Condition: Good
--- NOTE | 2024-08-24 11:50 | XR_ITS ---
[place] [id number] Patient Name: SRINIVAS MCKEON MRN: [id number] date: 1955 Sex: M Assigned Patient Location: ER Current Patient Location: ER Accession/Order Number: [id number] Exam Date: 08/24/2024 11:58 Report Date: 08/24/2024 11:59 At the request of: ALYSON FITZPATRICK MD Procedure: XR chest 1V XR chest 1V 08/24/2024 11:56 AM SIGNS AND SYMPTOMS: Chest pain, cough, lightheaded PROTOCOL: Frontal radiograph of the chest COMPARISON: 07/26/2024 FINDINGS: The trachea is midline. The heart and mediastinal structures are within normal limits. The lung parenchyma is clear. The bony thorax is intact. XR/XR chest 1V IMPRESSION: No acute cardiopulmonary pathology. Impression dictated by: Delmar Jackson M.D.08/24/2024 11:59 AM Dictation Location: [place] [address] Electronically authenticated by: [id number] Y Date: 08/24/2024 11:59
[2024-08-24 12:03] LABS: Hematocrit 43.3 % (42.0-54.0); Hemoglobin 14.1 g/dL (14.0-18.0); Mean Corpuscular HGB Conc 32.6 g/dL (29.9-35.2); Mean Corpuscular Hemoglobin 29.8 pg (25.9-34.0); Mean Corpuscular Volume 91.5 fL (80.0-94.0); Mean Platelet Volume 9.5 fL (9.5-13.5); Platelet Count 293 10^3/uL (150-450); Red Blood Count 4.73 10^6/uL (4.70-6.10); Red Cell Distribution Width 13.2 % (11.0-15.0); White Blood Count 9.7 10^3/uL (4.0-11.0)
[2024-08-24 12:18] LABS: Anion Gap 10.3; BUN Creatinine Ratio 18.4; Calcium 9.2 mg/dL (8.5-10.1); Chloride 105 mmol/L (98-107); Estimated GFR (African America >60 (>=60 mL/min/1.73m^2); Estimated GFR (Non-African Ame >60 (>=60 mL/min/1.73m^2); Glucose 137 mg/dL (74-106); Potassium 4.3 mmol/L (3.5-5.1); Sodium 140 mmol/L (136-145); Troponin I High Sensitivity 5.7 pg/mL (4.0-76.1)
[2024-08-24 12:23] LABS: D Dimer 0.78 mg/L FEU (<=0.59)
--- NOTE | 2024-08-24 12:23 | CT_ITS ---
[address] [address] Patient Name: SRINIVAS MCKEON MRN: [id number] date: 1955 Sex: M Assigned Patient Location: ER Current Patient Location: ER Accession/Order Number: [id number] Exam Date: 08/24/2024 13:07 Report Date: 08/24/2024 13:14 At the request of: ALYSON FITZPATRICK MD Procedure: CT angio chest CT angio chest 08/24/2024 12:43 PM SIGN AND SYMPTOMS: Chest pain, elevated D-dimer CONTRAST: 100 mL of intravenous Omnipaque 350 TECHNIQUE: Multidetector CT axial slices of the chest were obtained with IV contrast. Multiplanar, MIP, and 3-D reformats were performed and viewed on a separate workstation and reviewed to further define anatomy and possible pathology. CT was performed with one or more of the following dose reduction techniques: Automated exposure control, adjustment of the mA and/or kV according to patient size, or use of iterative reconstruction technique. COMPARISON: 07/26/2024. FINDINGS: Lower neck: Thyroid gland within normal limits, no supraclavicle adenopathy. Vessels: Within normal limits. There is no pulmonary embolism. Mediastinum and Susan: The esophagus is fluid-filled. The mediastinal structures are otherwise within normal limits. No pathologically enlarged lymph nodes. Heart: Normal size. No pericardial effusion. Airways: Within normal limits Lungs: Mild dependent opacities are noted suspicious for atelectasis. There is also slight interstitial prominence throughout which appears to be chronic. Pleura: Within normal limits. Chest Wall: Within normal limits. Upper Abdomen: Within normal limits. Bones: Degenerative changes are noted in the thoracic spine and shoulders. CT/CT angio chest IMPRESSION: No pulmonary embolus. No acute cardiopulmonary pathology. Mild dependent opacities are noted suspicious for atelectasis. There is also slight interstitial prominence throughout which appears to be chronic. Impression dictated by: Delmar Jackson M.D.08/24/2024 1:14 PM Dictation Location: [place] [address] Electronically authenticated by: [id number] Y Date: 08/24/2024 13:14
[2024-08-24 12:46] LABS: Eosinophils Absolute Manual 0.09 10^3/uL (0.00-0.70); Lymphocytes Absolute Manual 0.58 10^3/uL (1.20-3.80); Monocytes Absolute Manual 0.58 10^3/uL (0.30-0.80); Segmented Neut Absolute Manual 8.43 10^3/uL (1.4-6.5)
[2024-08-24] MEDS: ONDANSETRON PF 4 MG/2 ML VIAL IV ×2 (12:46→19:57)
[2024-08-24 13:45] LABS: Troponin I High Sensitivity 5.6 pg/mL (4.0-76.1)
--- NOTE | 2024-08-24 13:57 | CA_ITS ---
Patient Name: SRINIVAS MCKEON MR#: [id number] : 1955 Exam Date: 08/24/2024 Ordering Doctor: SHAIKH Hans DESAI . ECHOCARDIOGRAM REPORT PROCEDURE: CA ECHO DOPPLER COMPLETE INDICATIONS: chest pain COMPARISON: None. DESCRIPTION: COMPLETE ECHOCARDIOGRAM Real-time transthoracic echocardiography with 2D, M-mode, spectral and color flow Doppler performed. QUALITY: Technical quality was good. LEFT VENTRICLE: Normal chamber size. Normal left ventricular wall thickness. Normal systolic function. LV EF: Normal left ventricular ejection fraction, (>55%). DIASTOLIC: Normal diastolic function. ATRIAL SEPTUM: Visually appears intact. LEFT ATRIUM: Normal chamber size. RIGHT ATRIUM: Normal chamber size. RIGHT VENTRICLE: Normal chamber size. Normal right ventricular systolic function. TRICUSPID VALVE: Normal mobility and thickness. No stenosis with no regurgitation. MITRAL VALVE: Normal mobility and thickness. No evidence of mitral valve stenosis. There is no mitral annular calcification. No mitral regurgitation. AORTIC VALVE: Normal trileaflet appearance. No visible sclerosis. Normal leaflet mobility. No evidence of aortic valve stenosis. Trivial aortic regurgitation. AORTIC ROOT: Normal diameter and appearance. PULMONIC VALVE: Normal thickness and mobility. No stenosis. Trivial regurgitation. PERICARDIUM: No evidence of pericardial effusion. IVC: Collapses with inspirations. IVC is normal in size. PLEURA: CONCLUSION: 1. Normal ventricular size and systolic function. LVEF is 60%. 2. Normal diastolic function. 3. No significant valvular dysfunction. 4. Normal right sided pressures. Adult Echocardiography Procedure Report Left Ventricle LVEDD (3.7 - 5.6 cm): 4.66 cm LVESD (2.2 - 4.0 cm): 2.97 cm LVIVS thickness (0.6 - 1.2 cm): 0.91 cm LVPW thickness (0.5 - 1.0 cm): 1.00 cm e': 0.12 m/s E - e': 3.91 LVOT Max Gradient: 3.50 mm[Hg] LVOT Area (cm2): 0.94 m/s Peak Velocity (LVOT): 0.94 m/s Mean Velocity (LVOT): 0.60 m/s LVOT Diameter 2.09 cm Left Atrium LA Volume Index (2D A2C): 19.36 ml/m2 Left Atrium Systolic Dimension: 3.57 cm Mitral Valve MV E to A Ratio: 0.75 Mitral Valve A-Wave Peak Velocity: 0.61 m/s Mitral Valve E-Wave Peak Velocity: 0.46 m/s Right Ventricle Aorta AO Root Diam: 3.45 cm Aortic Valve AoV Area (Peak Eusebio): 2.16 cm2, 2.16 cm2 AoV Area (VTI): 2.15 cm2, 2.15 cm2 Peak Velocity(Antegrade Flow): 1.48 m/s Peak Gradient(Antegrade Flow): 8.81 mm[Hg] Mean Velocity(Antegrade Flow): 0.95 m/s Mean Gradient(Antegrade Flow): 4.31 mm[Hg] Velocity Time Integral: 28.35 cm Tricuspid Valve Pulmonic Valve Mean Gradient: 2.19 mm[Hg] Mean Velocity: 0.67 m/s Peak Velocity: 1.14 m/s, 1.00 m/s Peak Gradient: 4.00 mm[Hg], 5.24 mm[Hg] Right Atrium Right Atrium Systolic Pressure: 29.41 ml, 29.41 ml Dictated by: Al Kapadia M.D. on 08/24/2024 at 16:47 Approved by: Al Kapadia M.D. on 08/24/2024 at 16:50
--- NOTE | 2024-08-24 14:01 | P.HP_ITS ---
HPI H&P: HPI History of Present Illness Chief complaint: urti complaints CHEST PAIN Narrative: Delayed note for my encounter on 08/24/2024 69-year-old male with no significant past medical history presented to ER with chest pain. According to the patient for past 1 month, he has been experiencing intermittent midsternal chest pain more or less daily that is associated with diaphoresis, shortness of breath and lightheadedness. Patient reports that his symptoms last for 1 minute to a few minutes. His chest pain is sporadic and he could not tell me any aggravating or alleviating factors. He denies fever, chills, shortness of breath. He has no known history of coronary artery di sease. He has no significant family history of coronary artery disease. He smoked for a small period of time as a young adult but has not smoked for over 45 years. Patient is not on any medications except for omeprazole as needed for GERD. His chest pain has no relationship to food intake. He denies nausea, vomiting or any GI symptoms. Workup in ER included EKG, cardiac enzymes, CBC/CMP with no acute finding except for elevated D-dimer that prompted CTA chest. CTA chest did not reveal evidence of PE. Patient reports that his chest pain has been getting more severe and more frequent so he came to ED for further evaluation. His chest pain resolved by the time I evaluated him after he received sublingual nitro and IV morphine. Patient will be admitted to [facility] and monitored on telemetry to rule out ACS Opioid HPI Opioid Management Most Recent Pain and Opioid Data: Last Pain Scale 1 08/25/24 10:11 08/25/24 Last Pain Intensity 3 08/24/24 17:23 08/24/24 Last Pain Assessment 08/25/24 10:11 Last MAR Pain Assessment 08/25/24 08:14 Last ORT Total Score 0 08/24/24 15:32 08/24/24 Last ORT Risk Category Low Risk 08/24/24 15:32 08/24/24 Review of Systems ROS Status of ROS 10 or more systems reviewed and unremark able except as noted in history and below [facility] Medical History (Updated 08/24/24 @ 14:02 by Alyssa Dorsey RN) GERD (gastroesophageal reflux disease) ?K21.9 - Gastro-esophageal reflux disease without esophagitis (ICD-10) Family History (Updated 08/24/24 @ 15:30 by Adriane Flores) Father Family history of COPD (chronic obstructive pulmonary disease) Mother Family history of cancer Social History (Updated 08/24/24 @ 15:31 by Adriane Flores) Within the past year, how often did you have a drink containing alcohol: never Score interpretation: A score less than 4 is consistent with normal alcohol consumption. Smoking status: Never smoker Non-prescribed substance use: denies use Previous occupational history: retired Highest level of school completed/degree received: some college, no degree Are you now , , , , never or living with a partner: In a typical week, how many times do you talk on the telephone with family, friends, or neighbors: twice per week How often do you get together with friends or relatives: twice per week How often do you attend christianity or mormon services: 4 or more times per year Do you belong to any clubs or organizations such as christianity groups unions, [employer] or athletic groups, or school groups: no Total score: 3 Score interpretation: A score of greater than or equal to 2 indicates the lowest level of social isolation. Little interest or pleasure in doing things: not at all Feeling down, depressed, or hopeless: not at all Feel stressed/tense/nervous/anxious/difficulty sleeping: not at all Gender Identity: male Meds Home Medications and Allergies Home Medications ?Medication ?Instructions ?Recorded ?Confirmed ?Type omeprazole magnesium 10 mg oral 10 mg PO DAILY 07/26/24 08/24/24 History suspension,delayed release (Prilosec) Allergies Allergy/AdvReac Type Severity Reaction Status Date / Time No Known Drug Allergies Allergy Verified 08/24/24 11:38 Exam Constitutional Vital Signs, click to edit/add: Last Vital Signs Temp 98.2 F 08/24/24 11:33 Pulse 88 08/24/24 13:50 Resp 19 08/24/24 13:50 BP 130/91 08/24/24 12:20 Pulse Ox 99 08/24/24 12:30 O2 Del Method Room Air 08/24/24 11:33 Documenting provider has reviewed patient's vital signs: yes Common normals: no apparent distress and oriented x3 General appearance: cooperative HENMT Common normals: normocephalic and head/scalp atraumatic Head and scalp: normocephalic and atraumatic Eye Common normals: conjunctivae normal and no scleral icterus Conjunctiva: conjunctiva(e) normal Respiratory Common normals: normal respiratory effort and clear to auscultation bilaterally Effort & inspection: able to speak in complete sentences Auscultation: clear to auscultation bilaterally Cardio Common normals: regular rate, S1 normal heart sound and S2 normal heart sound Rate: regular rate Heart sounds: S1 normal and S2 normal GI Common normals: Normal to inspection, nondistended, normoactive bowel sounds present, soft to palpation, non-tender and no hepatosplenomegaly Palpation: soft and no hepatosplenomegaly Extremity Common normals: no clubbing, cyanosis or edema Neuro Common normals: oriented x3, moves all extremities and no focal motor deficits Psych Common normals: mental status grossly normal, denies hallucinations, denies homicidal ideation and denies suicidal ideation Results Labs Labs: Short CBC 08/24/24 Range/Units 11:47 WBC 9.7 (4.0-11.0) 10^3/uL Hgb 14.1 (14.0-18.0) g/dL Hct 43.3 (42.0-54.0) % Plt Count 293 (150-450) 10^3/uL BMP 08/24/24 11:47 Sodium 140 Potassium 4.3 Chloride 105 Carbon Dioxide 29.0 BUN 18.0 Creatinine 0.98 Glucose 137 H Calcium 9.2 Assessment and Plan Assessment and Plan (1) Chest pain: Qualifiers: Chest pain type: unspecified Qualified Code(s): R07.9 - Chest pain, unspecified (2) Elevated d-dimer: Plan Patient presents with ongoing intermittent chest pain for about a month that is progressively worsening in frequency and severity. His chest pain is nonexertional and he has no significant risk factor except for his age. His EKG did reveal incomplete right bundle branch block but no acute changes that would be concerning for acute cardiac ischemia. No evidence of PE on CTA and or pneumonia. Will admit patient to [facility] with telemetry. Will trend cardiac enzymes. Monitor on telemetry. Echocardiogram ordered to assess cardiac structure. Based on his presentation, it is not unreasonable to pursue cardiac stress test as outpatient if he remains chest pain-free overnight and his cardiac enzymes are negative and no significant cardiac structural abnormalities are noted on his echo in the morning. Case discussed with patient's nurse, ER physician. Patient educated on his current condition, treatment plan. Patient's questions and concerns answered and addressed.
[2024-08-24 14:21] LABS: Chol HDL Ratio 3.7; Cholesterol 229 mg/dL (<=200); HDL Cholesterol 62 mg/dL (40-60); Triglycerides 84 mg/dL (<=150); VLDL CHOLESTEROL 16.8 mg/dL
[2024-08-24 14:45] LABS: Estimated Average Glucose 134 mg/dL; Glycohemoglobin A1C 6.3 % (4.5-6.2)
--- OUTSIDE RECORDS SUMMARY | 2024-08-24 14:54 | XMS_ITS | CCD ---
Author Organization [facility] Care Team Providers Care Instructional Design Consultant Name Role Phone DWEIK, RAED Referring Unavailable [...] Referring Unavailable Chuck Odonnell Primary Care Provider [phone] Agustin Stoll Attending Provider [phone] Oledannielle, Agustin Unavailable BELLE, DR NG Admitting Unavailable SAUGERTIES, DR NG Attending Unavailable SAUGERTIES, DR NG Primary Care Unavailable [place], DR ANALILIA Lucero Consulting Unavailable SAUGERTIES, DR NG Consulting Unavailable [facility], ANALILIA Consulting Unavailable SAUGERTIES, DR NG Admitting Unavailable SAUGERTIES, DR NG Attending Unavailable SAUGERTIES, DR NG Primary Care Unavailable SAUGERTIES, DR NG Consulting Unavailable SAUGERTIES, DR NG Admitting Unavailable SAUGERTIES, DR NG Attending Unavailable SAUGERTIES, DR NG Primary Care Unavailable SAUGERTIES, DR NG Consulting Unavailable [facility], ETHEL Consulting Unavailable ROSE AHUJA Attending Unavailable [...] By: Carlos Reilly on 07-26-2024 Study report [facility] Main [address] [address] XRay Report Signed Patient: Ab Mae MR#: [id number] : 1955 Acct:[id number] Age/Sex: 69 / M ADM Date: 5 Loc: XDUC [facility]: [facility]: Bernadette Mercado SALESPERSON RECREATIONAL VEHICLES Copies to: Bernadette Mercado APRN~ Ordering Provider: [...] Aram Reilly M.D.07/26/2024 11:27 AM Dictation Location: [place] [address] Transcribed By: [facility] 07/26/24 1127 Dictated By: Aram Reilly DO 07/26/24 1126 Signed By: 07/26/24 1127 [facility] XR chest 2V*on 07-26-2024 XR chest 2V* [address] [address] XRay Report Signed Patient: Ab Mae MR#: [id number] : 1955 Acct:[id number] Age/Sex: 69 / M ADM Date: 07/26/24 Loc: XDUC Room: [facility] Attending Dr: Bernadette Mercado SALESPERSON RECREATIONAL VEHICLES Copies to: Bernadette Mercado APRN Ordering Provider: [...] Aram Reilly M.D.07/26/2024 11:27 AM Dictation Location: [place] [address] Transcribed By: [facility] 07/26/24 1127 Dictated By: Aram Reilly DO 07/26/24 1126 Signed By: 07/26/24 1127 Normal [facility] Physician [facility] XR CHEST 2 Von 05-05-2022 XR CHEST 2 V EXAM: XR CHEST 2 V HISTORY: . Cough . COMPARISON: 10/13/2018 TECHNIQUE: Frontal and lateral chest FINDINGS: Heart and vascularity are unremarkable. Lungs are expanded and free of focal infiltrates. Spondylosis of the spine is noted. IMPRESSION: No acute heart or lung disease identified. Electronically authenticated by: ANALILIA MARTINEZ Date: 2022-05-05 18:[address] [facility] XR SINUSES 3 VIEWS OR GREATE Calvin [...] by: ANALILIA TORRES Date: 2022-05-05 19:[address] [facility] CT HEAD WO CONon 01-13-2022 CT HEAD [...] ETHEL TOLEDO Date: 2022-01-13 14:08 Normal [facility] Covid-19 PCR ([facility])on 06-05 SARS-CoV-2 (COVID-19) RNA RADHA+probe Ql (Unsp spec) Not detected Normal NOT DETECTED [facility] Comment on above: Result Comment: This test is not yet approved or cleared by the [place] FDA. When there are no FDA-approved or cleared tests available, and other criteria are met, FDA can make tests available under an emergency access mechanism called an Emergency Use Authorization (EUA). The EUA for this test is supported by the [employer] Checker of Health and Human Service's (HHS's) declaration [...] SARS-CoV-2. Performed By: #### C VDTB #### [facility] [address] [address] [address] Maulik Gavin Albumin [Mass/volume] in Ser um or Plasmaon 12-29-2020 Albumin [Mass/Vol] 3.9 g/dL 3.2-5.5 [facility] Basophils Auto (Bld) [#/Vol] on 12-29-2020 Basophils (Bld) [#/Vol] 0.0 10*3/uL 0.0-0.2 [facility] Basophils/100 WBC Auto (Bld) on 12-29-2020 Basophils/100 WBC (Bld) 0.4 % [facility] Blood hemoglobin measurement (mass/volume)on 12-29-2020 Hemoglobin (Bld) [Mass/Vol] 12.7 g/dL 13.0-17.0 [facility] Blood leukocytes automated c ount (number/volume)on 12-29-2020 WBC (Bld) [#/Vol] 7.3 10*3/uL 4.5-11.0 [facility] Creatinine and Glomerular fi ltration rate.predicted panel (S/P/Bld)on 12-29-2020 Creatinine [Mass/Vol] 0.77 mg/dL 0.64-1.27 [facility] Eosinophils Auto (Bld) [#/Vo l]on 12-29-2020 Eosinophils (Bld) [#/Vol] 0.1 10*3/uL 0.0-0.45 [facility] Eosinophils/100 WBC Auto (Bl d)on 12-29-2020 Eosinophils/100 WBC (Bld) 1.9 % [facility] Erythrocyte distribution wid th Auto (RBC) [Ratio]on 12-29-2020 Erythrocyte distribution width (RBC) [Ratio] 13.6 % 12.0-14.8 [facility] Estimated glomerular filtrat ion rate (GFR) non- Americanon 12-29-2020 GFR/1.73 sq M.predicted among non-blacks MDRD (S/P/Bld) [Vol rate/Area] > 60 mL/Min [facility] Globulin Calc (S) [Mass/Vol] on 12-29-2020 Globulin (S) [Mass/Vol] 2.3 g/dL [facility] Hematocrit Auto (Bld) [Volum e fraction]on 12-29-2020 Hematocrit (Bld) [Volume fraction] 37.6 % 38.8-50.0 [facility] Laboratory - Hematology and Cell countson 12-29-2020 Nucleated RBC/100 WBC (Bld) [Ratio] 0.1 % 0-0.5 [facility] Lymphocytes Auto (Bld) [#/Vo l]on 12-29-2020 Lymphocytes (Bld) [#/Vol] 1.4 10*3/uL 1.00-4.8 [facility] Lymphocytes/100 WBC Auto (Bl d)on 12-29-2020 Lymphocytes/100 WBC (Bld) 19.6 % [facility] MCH Auto (RBC) [Entitic mass ]on 12-29-2020 MCH (RBC) [Entitic mass] 31.0 pg 27.5-35.2 [facility] MCHC Auto (RBC) [Mass/Vol]on 12-29-2020 MCHC (RBC) [Mass/Vol] 33.8 g/dL 32.5-35.6 [facility] MCV Auto (RBC) [Entitic vol] on 12-29-2020 MCV (RBC) [Entitic vol] 91.8 fL 83.5-101 [facility] Monocytes Auto (Bld) [#/Vol] on 12-29-2020 Monocytes (Bld) [#/Vol] 0.7 10*3/uL 0.0-0.8 [facility] Monocytes/100 WBC Auto (Bld) on 12-29-2020 Monocytes/100 WBC (Bld) 9.0 % [facility] Neutrophils Auto (Bld) [#/Vo l]on 12-29-2020 Neutrophils (Bld) [#/Vol] 5.1 10*3/uL 1.8-7.7 [facility] Neutrophils/100 WBC Auto (Bl d)on 12-29-2020 Neutrophils/100 WBC (Bld) 69.1 % [facility] No Panel Informationon 12-29 Estimated GFR () > 60 mL/Min [facility] Comment on above: GFR estimated refere nce range: According to KDOQI guidelines, <60 ml/min/1.73m2 is sufficient to diagnose a patient with chronic kidney disease. Pharmacy Creatinine Clearance (Chem N/A [facility] Platelet mean volume Auto (B ld) [Entitic vol]on 12-29-2020 Platelet mean volume (Bld) [Entitic vol] 8.1 fL 6.6-10.1 [facility] Platelets Auto (Bld) [#/Vol] on 12-29-2020 Platelets (Bld) [#/Vol] 276 10*3/uL 150-450 [facility] Protein [Mass/volume] in Ser um or Plasmaon 12-29-2020 Protein [Mass/Vol] 6.2 g/dL 6.1-7.9 [facility] RBC Auto (Bld) [#/Vol]on RBC (Bld) [#/Vol] 4.10 10*6/uL 3.90-5.60 [facility] Serum or plasma alanine rojo otransferase measurement without P-5'-P (enzymatic activion 12-29-2020 ALT No additional P-5'-P [Catalytic activity/Vol] 21 U/L 10-60 [facility] Serum or plasma albumin/glob ulin mass ratioon 12-29-2020 Albumin/Globulin [Mass ratio] 1.7 {ratio} [facility] Serum or plasma alkaline lucinda sphatase measurement (enzymatic activity/volume)on 12-29-2020 ALP [Catalytic activity/Vol] 58 U/L 32-92 [facility] Serum or plasma aspartate am inotransferase measurement (enzymatic activity/volume)on 12-29-2020 AST [Catalytic activity/Vol] 19 U/L 10-42 [facility] Serum or plasma calcium ayesha urement (mass/volume)on 12-29-2020 Calcium [Mass/Vol] 9.3 mg/dL 8.2-10.2 [facility] Serum or plasma chloride slime surement (moles/volume)on 12-29-2020 Chloride [Moles/Vol] 103 mmol/L 95-114 [facility] Serum or plasma glucose ayesha urement (mass/volume)on 12-29-2020 Glucose [Mass/Vol] 85 mg/dL 70-100 [facility] Comment on above: ADA recommended refe rence rangeRandom Glucose Reference Range is dependent on time and content of last meal. Glucose of more than 200 mg/dL in a nonstressed, ambulatory subject supports the diagnosis of Diabetes Mellitus. Serum or plasma potassium me asurement (moles/volume)on 12-29-2020 Potassium [Moles/Vol] 4.0 mmol/L 3.5-5.1 [facility] Serum or plasma sodium measu rement (moles/volume)on 12-29-2020 Sodium [Moles/Vol] 140 mmol/L 136-146 [facility] Serum or plasma total biliru bin measurement (mass/volume)on 12-29-2020 Bilirubin [Mass/Vol] 0.7 mg/dL 0.3-1.2 [facility] Serum or plasma total carbon dioxide measurement (moles/volume)on 12-29-2020 CO2 [Moles/Vol] 26.2 mmol/L 22.0-30.0 [facility] Serum or plasma urea nitroge n measurement (mass/volume)on 12-29-2020 Urea nitrogen [Mass/Vol] 10 mg/dL 9 [facility] CNOVon 05-01-2018 CNOV Office Visit (PULMMN) BEAR MAE ([id number]) 1955 M Date Time Provider Department 05/01/18 1:00 PM AWAIS POTTS During your visit today, we recorded the following information about you: Temperature Pulse Blood pressure 98.2 degrees 80/minute 132/75 Awais Mancera MD 05/01/2018 2:00 PM Signed Sarcoidosis and Interstitial Lung Disease Program Respiratory [place] FOLLOW UP NOTE Problem List: Problem List Noted Noted By Resolved Resolved By Beryllium sensitization 10/31/2017 Jc Grant Initial HPI(09/19/17): 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 Describes SOB with heavy [...] with the results. Referring Provider: AWAIS POTTS [[id number]] Allergies As of Date: 05/01/2018 (No Known Allergies) Date Reviewed: 05/01/2018 Reviewed by: Awais Mancera - Fully Assessed Reason for Visit: Recheck [92] Primary Visit Diagnosis:SOB (shortness of breath) [R06.02] Other Visit Diagnoses:Need for vaccination [Z23] ILD (interstitial lung disease) ([facility]) [J84.9] Order(s):ECG COMPLETE W INTERPRETATION [ECG01] Order #: [id number] FUTURE ECHO [798569] Order #: [id number]: 1 FUTURE ADMIN OF INFLUENZA VACCINE [[id number]] Order #: [id number]: 1 INFLUENZA VACCINE QUADRIVALENT AGE 3 YRS PLUS + IM [[id number]] Order #: [id number] Prescriptions as of 05/01/2018 Sig: DEXLANSOPRAZOLE 60 MG CAPSULE* Take 1 capsule by mouth once * Problem List As Of Date 05/01/2018 Noted Resolved Encounter for screening for respiratory disorde*INVALID FOR* ILD (interstitial lung disease) ([facility]) [J84.9] INVALID FOR* Priority: A More... Other instructions from your clinician: - Flu shot - Schedule echocardiogram and EKG - I will contact you with the results - We will decide on next steps (e.g. Stress Test) after those results Encounter Status:Closed by AWAIS POTTS MD on 05/01/18 Normal [facility] CT CHEST WO IVCONon 05-01-20 CT CHEST WO IVCON * * *Final Report* * * DATE OF EXAM: May 01 2018 11:06AM [facility] 0541 - CT CHEST WO IVCON / [...] suspicious pulmonary nodules. 3. No thoracic lymphadenopathy. Academic Advisor: PSCHilda Transcribe Date/Time: May 01 2018 1:21P Dictated by : AISHA REIS MD This examination was interpreted and the report reviewed and electronically signed by: AISHA REIS MD on May 01 2018 2:14PM EST [id number] Normal [facility] ECG COMPLETE W INTERPRETATIO Non 05-01-2018 ECG COMPLETE W INTERPRETATION NAME : BEAR MAE PID : [id number] : 1955 Gender : Male Race : ORD : [id number] Procedure Date : May 01 2018 14:23:56 Edit Date : May 02 2018 11:08:40 Diagnosis:SINUS BRADYCARDIA NONSPECIFIC T WAVE ABNORMALITY ABNORMAL ECG Confirmed by MAURA PRABHAKAR M.D. ([id number]) on 05/02/2018 11:08:32 AM Ventricular Rate : 57 BPM Atrial Rate : 57 BPM P-R Interval : 198 ms QRS Duration : 114 ms Q-T Interval : 426 ms QTC Calculation(Bezet) : 414 ms P [place] : 56 degrees R [place] : -17 degrees T [place] : 8 degrees Test Reason : Location : 119 : A17 Overread By : MAURA PRABHAKAR M.D. Edited By : MAURA PRABHAKAR M.D. 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 Describes SOB with heavy [...] Diagnosis - ILD (interstitial lung disease) ([facility]) Priority: A Overview Note: - Mr. Mae [...] MD May 01, 2018 1:44 PM Normal [facility] Protein mass conc HNO ID: [id number] Author: Julio Win (Veronica) VERONICA Guevara Service: Radiology Author Type: Clinical Beater Tender Type: Progress Notes Filed: 05/01/2018 11:02 AM [...] Elizabeth May 01, 2018 10:54 AM Normal [facility] CNCOon 02-13-2018 CNCO Letter Text . February 13, 2018 Mr. Bear Mae [address] [facility] [address] RE: [facility]# [id number] Dear Mr. Mae, I am writing this letter to update you on your evaluation at the [facility] regarding your history of beryllium [...] the chest. Thank you for choosing the [facility] for your care. If you have any questions, if I can be of any further assistance or if you would like to schedule a follow-up appointment or bronchoscopy, please do not hesitate to contact my office. This letter was sent to you per your request. Please feel free to share with your physicians or other healthcare providers. Sincerely, Awais Mancera MD [facility] AFB Cult and Stainon 018 AFB Cult and Stain Sp. Request/Comment: - RML Smear Result - No acid fast bacilli seen by fluorochrome stain Culture Result - No Acid Fast Bacilli isolated after 42 days Normal [facility] Comment on above: Performed By: #### Omid FC ####[facility] [place], [place] [phone] BAL Routineon 11-15-2017 BAL COMMENT SEE COMMENT Normal [facility] Comment on above: Result Comment: Test Not Indicated Performed By: #### TONIE GUIDO ####[facility] [address] [place], [place] [phone] BAL REVIEW SEE COMMENT Normal [facility] Comment on above: Result Comment: Test Not Indicated Performed By: #### TONIE GUIDO ####[facility] [address], [place] [phone] Clarity Nom (U) Slightly turbid Normal [facility] Comment on above: Performed By: #### TONIE GUIDO ####[facility] [address], [place] [phone] Color Nom (U) Colorless Normal [facility] Comment on above: Performed By: #### TONIE GUIDO ####[facility] [address] AveCleveland[place], [place] [phone] Macro% 73 % Normal [facility] Comment on above: Performed By: #### TONIE GUIDO ####[facility] [address] [phone] Monocytes/100 WBC (Bld) 5 % Normal [facility] Comment on above: Performed By: #### TONIE GUIDO ####[facility] [place] [phone] Neutrophils/100 WBC (Bld) 1 % Normal 0-1 [facility] Comment on above: Performed By: #### TONIE GUIDO ####[facility] [address]leveland[address] [place] [phone] Nucleated Cells, BAL 165 /uL Normal [facility] Comment on above: Performed By: #### TONIE GUIDO ####[facility] [address]ClevelDar[address] [place] [phone] RBC #/vol (Bld) 0.86050 10*6/uL Normal [facility] Comment on above: Performed By: #### TONIE GUIDO ####[facility] [address]leveland[address] [place] [phone] Slide Number BAL [id number] Normal [facility] Comment on above: Performed By: #### TONIE GUIDO ####[facility] [address]leveland[address] [phone] Suprntnt Clarity Clear Normal [facility] Comment on above: Performed By: #### TONIE GUIDO ####[facility] [address] AveCleveland[place], [place] [phone] Suprntnt Color Colorless Normal [facility] Comment on above: Performed By: #### TONIE GUIDO ####[facility] [address] [place], [place] [phone] Ki 11-15-[address] [facility] Patient Outreach ([id number]) BEAR MAE ([id number]) 1955 M Date Time Provider Department 11/15/17 AWAIS POTTS [id number] During your visit today, we recorded the following information about you: Allergies As of Date: 11/15/2017 (No Known Allergies) Date Reviewed: 11/15/2017 Reviewed by: Clari Dawson (Rn), RN - Fully Assessed Primary Visit Diagnosis:Beryllium exposure [Z77.018] Order(s):AFB CULT + STAIN [SQAFC] Order #: [id number] BAL ROUTINE BFL [SQBALAVI] Order #: [id number] FUNGAL CULT + SMEAR [SQFCULSM] Order #: [id number] CELL COUNT + DIFF BFL [SQCCBF] Order #: [id number] LPT TO BERYLLIUM BAL [SQBALBE] Order #: [id number] LPT TO BERYLLIUM BLD [SQBLDBE] Order #: [id number] SURGICAL PATHOLOGY [[id number]] Order #: [id number] Prescriptions as of 11/15/2017 Sig: DEXLANSOPRAZOLE 60 MG CAPSULE* Take 1 capsule by mouth once * Problem List As Of Date 11/15/2017 Noted Resolved Encounter for screening for respiratory disorde*INVALID FOR* Encounter Status:Closed by AWAIS POTTS MD on 11/15/17 Normal [facility] Fungal Cult / Smearon 2017 Fungal Cult / Smear Sp. Request/Comment: - RML Smear Result - No fungus seen. Culture Result - No Fungus isolated after 34 days Normal [facility] Comment on above: Performed By: #### F CUL ####[facility] [address] [place], [place] [phone] HISTORY PHYSICALon HISTORY PHYSICAL HNO ID: [id number] Author: Jose Torres (Benjy) Service: Critical Care [...] November 15, 2017 TIME: 8:25 AM PAGER: [phone] [facility] HOSP 11-15-2017 [facility] Patient Update ([id number]) BEAR MAE ([id number]) 1955 M Date Time Provider Department 11/15/17 AWAIS POTTS [id number] During your visit today, we recorded the following information about you: Allergies As of Date: 11/15/2017 (No Known Allergies) Date Reviewed: 11/15/2017 Reviewed by: Clari Dawson (Rn), RN - Fully Assessed Primary Visit Diagnosis:Beryllium exposure [Z77.018] Order(s):SURGICAL PATHOLOGY [[id number]] Order #: [id number] Prescriptions as of 11/15/2017 Sig: DEXLANSOPRAZOLE 60 MG CAPSULE* Take 1 capsule by mouth once * Problem List As Of Date 11/15/2017 Noted Resolved Encounter for screening for respiratory disorde*INVALID FOR* Encounter Status:Closed by AWAIS POTTS MD on 11/15/17 [facility] LPT to JeffreyelsiecarolinaBRYANjulianna 11-15 Alveolar Macro % 73 % Normal [facility] Comment on above: Performed By: #### B TANIA, BALBE ####[facility] [address], [place] [phone] Beryllium 1.0 uM D3 0.8 SI [facility] Comment on above: Performed By: #### TONIE GUIDO ####[facility] [address] AveClevelandN[address] [place] [phone] Beryllium 1.0 uM D5 1.1 SI [facility] Comment on above: Performed By: #### TONIE GUIDO ####[facility] [address] AveClevelandN[address] [place] [phone] Beryllium 10 uM D3 0.6 SI [facility] Comment on above: Performed By: #### TONIE GUIDO ####[facility] [place] [phone] Beryllium 10 uM D5 0.1 [facility] Comment on above: Performed By: #### TONIE GUIDO ####[facility] [phone] Beryllium 100 uM D3 0.9 [facility] Comment on above: Performed By: #### TONIE GUIDO ####[facility] [address] AveClevelandN[address] [place] [phone] Beryllium 100 uM D5 0.1 [facility] Comment on above: Performed By: #### TONIE GUIDO ####[facility] [address] AveClevelandN[address] [place] [phone] Rylie Albicans 0.6 SI Low >2.0 [facility] Comment on above: Performed By: #### TONIE GUIDO ####[facility] [address]ClevelandN[address] [place] [phone] Cell Control 447 cpm [facility] Comment on above: Performed By: #### TONIE GUIDO ####[facility], [place] [phone] Interpretation Uninterpretable response to Beryllium. Lymphocyte response to PHA and/or Rylie is decreased. Lymphocyte response to Beryllium could be masked. Suggest repeat in 3 to 6 months. Normal [facility] Comment on above: Performed By: #### TONIE GUIDO ####[place] [address] [place] [phone] Lymphocytes/100 WBC (Bld) 21 % High 6-8 [facility] Comment on above: Performed By: #### TONIE GUIDO ####[place] [address] [phone] PHA Stim Index 14.9 SI Normal >10.0 [facility] Comment on above: Performed By: ###TONIE CORONEL ####[place] [phone] Phytohemagglutin 6673 cpm Normal [facility] Comment on above: Performed By: #### TONIE GUIDO ####[place] [phone] Plate ID Number [id number] Normal [facility] Comment on above: Performed By: ###TONIE CORONEL ####[place] [address] [phone] Viability % 96 % Normal [facility] Comment on above: Performed By: #### TONIE GUIDO ####[address] [phone] LPT to Beryllium,BLDon 11-15 Beryllium 1.0 uM D5 0.9 SI Normal <3.0 [facility] Comment on above: Performed By: ###Junior FLORES ####[address]rist[address] [phone] Beryllium 1.0 uM D6 0.9 SI Normal <3.0 [facility] Comment on above: Performed By: #### B LDBE ####[facility] [place] [phone] Beryllium 10 uM D5 0.5 SI Normal <3.0 [facility] Comment on above: Performed By: #### B LDBE ####[place] [address] [phone] Beryllium 10 uM D6 0.3 SI Normal <3.0 [facility] Comment on above: Performed By: #### B LDBE ####[place] [address] [phone] Beryllium 100 uM D5 0.3 SI Normal <3.0 [facility] Comment on above: Performed By: #### B LDBE ####[place] [address] [phone] Beryllium 100 uM D6 0.1 SI Normal <3.0 [facility] Comment on above: Performed By: #### B LDBE ####[place] [address] [phone] Rylie Albicans 2.4 SI Normal >2.0 [facility] Comment on above: Performed By: #### B LDBE ####[place] [address] [phone] Cell Control 835 cpm Normal [facility] Comment on above: Performed By: #### B LDBE ####[place] [address], [place] [id number] Interpretation Normal response to Beryllium. All six Beryllium indices are less than 3.0. Normal [facility] Comment on above: Performed By: #### B LDBE ####[facility] [place], [place] [phone] PHA Stim Index 152 SI Normal >50.0 [facility] Comment on above: Performed By: #### B LDBE ####[facility], [place] [phone] Phytohemagglutin 035294 cpm Normal [facility] Comment on above: Performed By: #### B LDBE ####[place] [id number] [place], [place] [phone] Plate ID Number [id number] [facility] Comment on above: Performed By: #### B LDBE ####[place] [id number] [place], [place] [phone] Reviewed Reviewed by Analilia Yang M.D. ([id number]) [facility] Comment on above: Performed By: #### B LDBE ####[facility], [place] [phone] Performed By: #### B TONIE MARIN ####[facility], [place] [phone] PT EDon 11-15-2017 PT ED HNO ID: [id number] Author: Ami Arnett (Rn), RN Service: (none) [...] By: Ami Arnett RN In Department: ADMITTING [facility] SURGICAL PATHOLOGYon 018 SURGICAL PATHOLOGY Specimen originated from [facility] Specimen #: [id number] Submitting Physician: AWAIS MANCERA MD FINAL DIAGNOSIS [...] in one cassette. Gross examination performed at [facility], [address] [place] [address] NM 11/15/2017 4:29:25 PM Date of Report: 11/16/2017 Date of Procedure: 11/15/2017 Date of Receipt: 11/15/2017 Submitted by: AWAIS MANCERA MD Additional Physician(s): JC COLLINS ([id number]) Location: PULMONARY MAIN Diagnostic interpretation performed at [place] [address]. Normal [facility] PT EDon 11-09-2017 PT ED HNO ID: [id number] Author: Maryam Bethea (Rn), RN Service: Nursing [...] Maryam Bethea RN In Department: ADMITTING Normal [facility] 11-01-2017 HOSP Patient:Bear Mae MRN: Height:5' 7 [...] for the following basenames: K,HCT Progress Notes ([facility] H23): Lucrecia Serrano 11/01/2017 3:22 PM Signed Called patient at [phone] (home) and reached voicemail. Left message for patient to call office to schedule/reschedule appointment. Lucrecia Serrano 11/04/2017 3:39 PM Signed Called patient again, at [phone] (home) and reached voicemail. Left message for [...] anticoagulants/anti- plt therapy? No Nursing Considerations: (ie: prison, best contact, diabetic etc) none Per[employer] Testing Eligible: No Diagnosis: Beryllium exposure/sensitizati on Referred by: Dr. Collins Reviewed by: Dr. Michelle Mancera MD October 31, 2017 2:49 PM Previous Version Normal [facility] CNOVon 10-31-2017 CNOV Office Visit (PULMMN) BEAR MAE ([id number]) 1955 M Date Time Provider Department 10/31/17 [...] by JC COLLINS MD on 11/05/17 Normal [facility] 10-31-2017 HOSP Patient Update (PULMMN) BEAR MAE ([id number]) 1955 M Date Time Provider Department 10/31/17 [...] anticoagulants/anti- plt therapy? No Nursing Considerations: (ie: prison, best contact, diabetic etc) none Per[employer] Testing Eligible: No Diagnosis: Beryllium exposure/sensitizati on Referred by: Dr. Collins Reviewed by: Dr. Michelle Mancera MD October 31, 2017 2:49 PM Allergies As of Date: 10/31/2017 (No Known Allergies) Date Reviewed: 10/31/2017 Reviewed by: cJ Collins - Fully Assessed Reason for Visit: Bronchoscopy Scheduling [63666] Cmt: Initial bronchoscopy note Reason For Visit History Recorded Prescriptions as of 10/31/2017 Sig: DEXLANSOPRAZOLE 60 MG CAPSULE* Take 1 capsule by mouth once * Problem List As Of Date 10/31/2017 Noted Resolved Encounter for screening for respiratory disorde*INVALID FOR* Follow-up and Disposition History Recorded Encounter Status:Closed by AWAIS POTTS MD on 10/31/17 [facility] PROGRESSon 10-31-2017 Protein mass conc HNO ID: [id number] Author: Awais Mancera Service: (none) Author Type: [...] anticoagulants/anti- plt therapy? No Nursing Considerations: (ie: prison, best contact, diabetic etc) none Per[employer] Testing Eligible: No Diagnosis: Beryllium exposure/sensitizati on Referred by: Dr. Collins Reviewed by: Dr. Michelle Mancera MD October 31, 2017 2:49 PM Normal [facility] Protein mass conc HNO ID: [id number] Author: Jc Collins Service: (none) Author Type: [...] for respiratory disorder. Jc Collins MD Normal [facility] Vital Signs Date Time Vital Sign Value Performing Clinician Facility 07-26-2024 10:47-0500 Body height 170.18 cm [facility] 07-26-2024 10:47-0500 Body mass index (BMI) [Ratio] 27.7 kg/m2 [facility] 07-26-2024 10:47-0500 Body temperature 98.7 [degF] [facility] 07-26-2024 10:47-0500 Body weight 80.39 kg [facility] 07-26-2024 10:47-0500 Diastolic blood pressure 70 mm[Hg] [facility] 07-26-2024 10:47-0500 Heart rate 83 /min [facility] 07-26-2024 10:47-0500 Respiratory rate 17 /min [facility] 07-26-2024 10:47-0500 SaO2% (BldA) [Mass fraction] 98 % [facility] 07-26-2024 10:47-0500 Systolic blood pressure 118 mm[Hg] [facility] 10-24-2023 10:13-0400 Body height 170.18 cm [facility] 10-24-2023 10:13-0400 Body mass index (BMI) [Ratio] 27.3 kg/m2 [facility] 10-24-2023 10:13-0400 Body temperature 98.3 [degF] [facility] 10-24-2023 10:13-0400 Body weight 79.37 kg [facility] 10-24-2023 10:13-0400 Heart rate 68 /min [facility] 10-24-2023 10:13-0400 Respiratory rate 18 /min [facility] 10-24-2023 10:13-0400 SaO2% (BldA) [Mass fraction] 99 % [facility] 04-09-2021 11:00-0400 Body height 170.18 cm Agustin Stoll Other [facility] Other 04-09-2021 11:00-0400 Body mass index (BMI) [Ratio] 25.84 kg/m2 Agustin Stoll Other [facility] Other 04-09-2021 11:00-0400 Body weight 74.84 kg Agustin Stoll Other [facility] Other Encounters Encounter Date Encounter Type Care Provider Facility Start: 07-26-2024 End: 07-26-2024 ambulatory NON STAFF [facility] Work Phone: Start: 07-26-2024 End: 07-26-2024 Patient encounter procedure [facility] Work Phone: Start: 12-13-2023 End: 12-13-2023 ambulatory ROSE Omid AHUJA Not Available Start: 10-24-2023 End: 10-24-2023 ambulatory [facility] Work Phone: Start: 10-24-2023 End: 10-24-2023 Patient encounter procedure [facility] Work Phone: Start: 06-09-2023 End: 06-09-2023 ambulatory Agustin Stoll Other [facility] Other Start: 06-09-2023 Telephone encounter Agustin Stoll [facility] Start: 05-05-2022 End: 05-06-[address] CHUCK ODONNELL Facility:[facility]1 Start: 01-13-2022 End: 01-14-[address] CHUCK ODONNELL Facility:[facility] Start: 07-02-2021 End: 07-02-[address] CHUCK ODONNELL Facility:[facility] Start: 04-09-2021 Office outpatient vi sit 15 minutes Agustin Stoll [facility] Start: 12-29-2020 End: 12-29-2020 Patient encounter procedure Chuck Odonnell Work Phone: -[facility] Start: 12-29-2020 End: 12-29-2020 Patient encounter procedure Chuck Odonnell Work Phone: [facility] Start: 05-01-2018 End: 10-04-2018 [facility] Start: 11-15-2017 End: 11-15-2017 Patient encounter procedure AWAIS MANCERA [facility] Start: 10-31-2017 End: 11-07-2017 Patient encounter procedure JC COLLINS [facility] Start: 10-31-2017 End: 01-03-2018 Patient encounter procedure RAROSANGELA STATONLarry [facility] Procedures Date Procedure Procedure Detail Performing Clinician Start: 07-26-2024 Plain chest X-ray Start: 12-29-2020 Plain X-ray of right shoulder Chuck Mosqueda Phone: Plan of Treatment Date Care Activity Detail Author XR Chest 2 Views [facility] [place] Immunizations Immunization Date Immunization Notes Care Provider Fa cility 09-15-2020 COVID-19 mRNA, Comir caroline (Pfizer) [facility] 08-25-2020 COVID-19 mRNA, Comir caroline (Pfizer) [facility] Payers Date Payer Category Payer Self-pay [id number] 2022 Unknown [id number] 1960 Medicare [id number] [facility] [id number] 1960 Unknown [id number] 1955 Unknown [id number] 2.16.84 [id number] 1955 Unknown [id number] 1955 Unknown [id number] 2.16.84 [id number] 1955 Unknown [id number] 2.16.84 [id number] Unknown [id number] Unknown [id number] 2.16.8 [id number] Social History Date Type Detail Facility Start: 12-29-2020 End: 12-31-2020 Tobacco smoking status NHIS Ex-smoker (finding) [facility] Start: 1955 Sex Assigned At Male F [facility] Sex Assigned At Sex Assigned At Bir th [facility] Other Start: 07-26-2024 End: 07-27-2024 Sex Male (finding) [facility] Medical Equipment Procedure Code Equipment Code Equipment Origin al Text Equipment Identifier Dates Repair, tendon Orthopaedic bone screw, bioabsorbable [id number] [facility] Start: 12-31-2020 Evaluation note 07-26-2024 Note Date & Type Note Facility 07-26-2024 Evaluation note Diagnosis Onset Date Resolution Dyspnea acute July 26, 2024 10:40am Shortness of breath acute Janua 2024 10:40am [facility] Work Phone: Evaluation note 04-09-2021 Note Date & Type Note Facility 04-09-2021 Evaluation note Encounter Date Diagnosis Assessment Notes Apr, Rupture of right distal biceps tendon, subsequent encounter (ICD-10 - S46.211D) Patient instructed on strengthening exercises. Activity as tolerated Apr, Injury of cutaneous sensory nerve at forearm level, right arm, subsequent encounter (ICD-10 - S54.31XD) Apr, Other specified postprocedural states (ICD-10 - Z98.890) [facility] Other History general Narrative - Reported 12-02-2020 Note Date & Type Note Facility 12-02-2020 History general N arrative - Reported Type Medical History denies significant past medical history Surgical History hernia repair 2004 Surgical History EGD 2009 Surgical History right distal biceps reapir 12/21 20 [facility] [employer] Other Evaluation note Note Date & Type Note Facility Evaluation note No assessment information availa ble [facility] Evaluation note Note Date & Type Note Facility Evaluation note No Information [facility] [employer] Other Evaluation note Note Date & Type Note Facility Evaluation note Diagnosis Onset Date Resolution Dyspnea acute July 26, 2024 10:40am Shortness of breath acute Janua 2024 10:40am [facility] Work Phone: Summary Purpose Family [...] section and content) DATE CREATED AUTHOR 10/06/2018 [facility] DATE CREATED AUTHOR AUTHOR'S ORGANIZ ATION 05/10/2022 [facility] DATE CREATED AUTHOR AUTHOR'S ORGANIZ ATION 12/13/2023 [facility] DATE CREATED AUTHOR AUTHOR'S ORGANIZ ATION 08/06/2024 [facility] Goals (unrecognized section and [...] BE BASED ON THE PRIMARY CLINICAL RECORDS. [facility] [employer] provides no warranty or guarantee of the accuracy or completeness of information in this document.
[2024-08-24] MEDS: OMEPRAZOLE 40 MG CAPSULE.DR PO (15:52)
[2024-08-24] MEDS: ASPIRIN 81 MG TAB.CHEW 324 MG PO (15:52)
[2024-08-24 17:12] LABS: Troponin I High Sensitivity 6.1 pg/mL (4.0-76.1)
[2024-08-24] MEDS: ENOXAPARIN SODIUM 40 MG/0.4 ML SYRINGE SUBQ (20:15)
[2024-08-25] VITALS (16 sets, daily range): BP systolic 97–122; BP diastolic 52–73; PULSE 54–94; TEMP 36.6–37.1; O2SAT 91–97
[2024-08-25] MEDS: OMEPRAZOLE 40 MG CAPSULE.DR PO (06:45)
--- NOTE | 2024-08-25 07:00 | ECG_ITS ---
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1955 Requested By: SHAIKH LLOYD Order Number: [id number] Reading MD: ABHISHEK WILSON Measurements Intervals [place] Rate: 70 P: 36 MT: 211 QRS: -23 QRSD: 109 T: -10 QT: 408 QTc: 443 Interpretive Statements SINUS RHYTHM WITH FIRST DEGREE AV BLOCK WITH OCCASIONAL SUPRAVENTRICULAR PREMATURE COMPLEXES BORDERLINE LEFT AXIS DEVIATION [QRS AXIS < -20] INCOMPLETE RIGHT BUNDLE BRANCH BLOCK [90+ ms QRS DURATION, TERMINAL R IN V1/V2, 40+ ms S IN I/aVL/V4/V5/V6] MODERATE VOLTAGE CRITERIA FOR LVH, CONSIDER NORMAL VARIANT [MEETS CRITERIA IN ONE OF: R(aVL), S(V1), R(V5), R(V5/V6)+S(V1)] Compared to ECG 08/24/2024 11:38:32 First degree AV block now present Electronically Signed On 08-25-2024 7:53:30 EST by ABHISHEK WILSON
--- NOTE | 2024-08-25 07:52 | ECG_ITS ---
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
[2024-08-25] MEDS: ASPIRIN 81 MG TAB.CHEW 324 MG PO (08:00)
[2024-08-25] MEDS: NITROGLYCERIN 0.4 MG BOTTLE SL (08:01)
[2024-08-25] MEDS: MORPHINE SULFATE 2 MG/ML SYRINGE IV ×2 (08:14→15:33)
[2024-08-25 08:15] LABS: Basophils Percent Auto 0.3 % (0.2-2.0); Eosinophils Absolute Auto 0.1 10^3/uL (0.0-0.7); Eosinophils Percent Auto 1.1 % (0.9-7.0); Hematocrit 40.5 % (42.0-54.0); Hemoglobin 13.2 g/dL (14.0-18.0); Immature Granulocytes Abs Auto 0.01 10^3/uL (0.00-0.03); Immature Granulocytes Pct Auto 0.2 % (0.0-0.5); Lymphocytes Absolute Auto 0.9 10^3/uL (1.2-3.8); Lymphocytes Percent Auto 13.8 % (20.5-60.0); Mean Corpuscular HGB Conc 32.6 g/dL (29.9-35.2); Mean Platelet Volume 9.4 fL (9.5-13.5); Monocytes Absolute Auto 0.7 10^3/uL (0.3-0.8); Monocytes Percent Auto 11.1 % (1.7-12.0); Neutrophils Absolute Auto 4.7 10^3/uL (1.4-6.5); Neutrophils Percent Auto 73.5 % (43.0-75.0); Platelet Count 265 10^3/uL (150-450); Red Cell Distribution Width 13.5 % (11.0-15.0); White Blood Count 6.3 10^3/uL (4.0-11.0)
[2024-08-25 08:27] LABS: INR 1.03; Partial Thromboplastin Time 30.3 sec (22.3-36.2); Prothrombin Time 10.9 sec (9.0-11.6)
[2024-08-25 08:31] LABS: Alanine Aminotransferase 15 U/L (16-63); Albumin Level 3.1 g/dL (3.4-5.0); Alkaline Phosphatase 71 U/L (46-116); Anion Gap 11.5; Aspartate Amino Transferase 16 U/L (15-37); BUN Creatinine Ratio 17.2; Bilirubin Total 0.5 mg/dL (0.2-1.0); Calcium 8.2 mg/dL (8.5-10.1); Carbon Dioxide 26.7 mmol/L (21.0-32.0); Chloride 103 mmol/L (98-107); Estimated GFR (African America >60 (>=60 mL/min/1.73m^2); Estimated GFR (Non-African Ame >60 (>=60 mL/min/1.73m^2); Globulin 3.2 g/dL; Glucose 119 mg/dL (74-106); Potassium 4.2 mmol/L (3.5-5.1); Sodium 137 mmol/L (136-145); Total Protein 6.3 g/dL (6.4-8.2)
--- NOTE | 2024-08-25 08:43 | PC.NURSE ---
0742 - RN to bedside. Pt c/o chest pain on left side, radiating into left shoulder and left side of neck. VS 111/69 - 68 - 18 - 98.1 - 94% RA. 0750 - Hospitalist contacted and updated regarding pt's condition, VS, and current complaints. Orders recieved and updated. 0755 - Pharmacy contacted regarding STAT orders. 0756 - Respiratory contacted regarding STAT orders. 0756 - Radiology contacted regarding STAT orders. 0800 - Pt medicated as charted on SEP. States that SL Nitro brought pain down to a 11/10 but the pain did return post CXR at bedside to an 12/11 . 0804 - CXR at bedside completed. 0806 - Labs drawn and sent for analysis. 0811 - EKG completed at bedside. 0817 - VS 108/70 - 94 - 18 - 91% RA - 97.9 Pain 5/10 Pt placed on 2L NC r/t low POX from medications. Tolerating well. 0818 - VS 105/68 - 69 - 18 - 97% 2L NC - 97.9 Pain 2-10. Pt states that this is the first time he can breathe properly and feels like I can actually take an adequate breath. Dr Oh updated.
[2024-08-25 08:54] LABS: Troponin I High Sensitivity 4.6 pg/mL (4.0-76.1)
[2024-08-25 09:23] LABS: Influenza Virus A Antigen Negative; Influenza Virus B Antigen Negative; Internal Control Within Normal Limits
[2024-08-25 09:24] LABS: Internal Control Within Normal Limits; SARS-CoV-2 Ag NEGATIVE (NEGATIVE)
--- NOTE | 2024-08-25 09:43 | PC.NURSE ---
0930 - Dr Oh rounding at pt's bedside. Discussed plan of care, new medication orders and Cardiology consult. Orders received and Cardiology discussed case with Dr. Oh.
[2024-08-25] MEDS: NITROGLYCERIN 0.1 MG/HR PATCH.TD24 2 PATCH TD (09:56)
[2024-08-25] MEDS: ATORVASTATIN CALCIUM 40 MG TABLET PO (09:56)
[2024-08-25] MEDS: HEPARIN SODIUM (PORCINE) 5,000 UNIT/ML VIAL 4000 UNIT IV (09:57)
[2024-08-25] MEDS: HEPARIN SODIUM,PORCINE/D5W 25,000 UNIT/500 ML IV.SOLN 19 UNIT IV (09:57)
--- NOTE | 2024-08-25 10:34 | PM.DS1 ---
DS: Providers Provider Date of admission: 08/24/24 14:48 Primary care physician: HERNANDEZ ODONNELL Admitting clinician: Shaikh Adriano Attending physician on admission: Shaikh Adriano Consults: 08/24/24 13:58 Physical Therapy Eval and Treat Routine Reason for consultation: Ambulatory dysfunction/weakness Attending physician on discharge: Shaikh Adriano Discharging clinician: Shaikh Adriano DS: Diagnosis Discharge Diagnosis (1) Unstable angina: (2) Chest pain: Qualifiers: Chest pain type: chest pain due to myocardial ischemia Ischemic chest pain type: unstable angina pectoris Qualified Code(s): I20.0 - Unstable angina (3) Elevated d-dimer: DS: Summary Hospital Course Hospital Course: 69-year-old male with no significant past medical history presented to ER with chest pain. According to the patient for past 1 month, he has been experiencing intermittent midsternal chest pain more or less daily that is associated with diaphoresis, shortness of breath and lightheadedness. Patient reports that his symptoms last for 1 minute to a few minutes. His chest pain is sporadic and he could not tell me any aggravating or alleviating factors. He denies fever, chills, shortness of breath. He has no known history of coronary artery disease. He has no significant family history of coronary artery disease. He smoked for a small period of time as a young adult but has not smoked for over 45 years. Patient is not on any medications except for omeprazole as needed for GERD. His chest pain has no relationship to food intake. He denies nausea, vomiting or any GI symptoms. Workup in ER included EKG, cardiac enzymes, CBC/CMP with no acute finding except for elevated D-dimer that prompted CTA chest. CTA chest did not reveal evidence of PE. Patient reports that his chest pain has been getting more severe and more frequent so he came to ED for further evaluation. His chest pain in ER resolved with sublingual nitro and IV morphine. Patient was admitted overnight to rule out ACS. His cardiac enzymes have been negative. He had an echocardiogram that revealed no evidence of wall motion abnormality, normal ejection fraction and no significant valvular heart disease. Earlier today, he had an episode of severe midsternal chest pain associated with diaphoresis and shortness of breath. A stat EKG, chest x-ray, troponin was ordered. No acute finding was noted on EKG, chest x-ray and his troponin in the morning was also negative. However his chest pain improved after he was given sublingual nitro and subsequently IV morphine. I reevaluated the patient and his chest pain had more or less resolved and he reported only mild chest tightness. Case was discussed with [facility] cardiology. Patient's symptoms and clinical presentation is very concerning for unstable angina. Patient is already on aspirin, started on Lipitor. I ordered a nitro patch for the patient that helps with chest pain. Patient started on IV heparin drip. Patient will need left heart catheterization for unstable angina. Patient transferred to [facility] for Cardiology eval Status at Discharge Functional status at discharge: independent ambulation Time Spent with Patient Time attestation: Total time spent providing and/or coordinating discharge services: Time spent: greater than 30 minutes Exam Constitutional Vital Signs, click to edit/add: Last Vital Signs Temp 97.8 F 08/25/24 09:42 Pulse 57 L 08/25/24 09:51 Resp 18 08/25/24 09:42 BP 122/69 08/25/24 09:42 Pulse Ox 93 L 08/25/24 09:51 O2 Del Method Nasal Cannula 08/25/24 09:42 O2 Flow Rate 2 08/25/24 09:42 Documenting provider has reviewed patient's vital signs: yes Common normals: no apparent distress and oriented x3 General appearance: cooperative Respiratory Common normals: normal respiratory effort and clear to auscultation bilaterally Effort & inspection: able to speak in complete sentences Auscultation: clear to auscultation bilaterally Cardio Common normals: regular rate, S1 normal heart sound and S2 normal heart sound Rate: regular rate Heart sounds: S1 normal and S2 normal GI Common normals: Normal to inspection, nondistended, normoactive bowel sounds present, soft to palpation, non-tender and no hepatosplenomegaly Palpation: soft and no hepatosplenomegaly Extremity Common normals: no clubbing, cyanosis or edema Neuro Common normals: oriented x3, moves all extremities and no focal motor deficits Psych Common normals: mental status grossly normal, denies hallucinations, denies homicidal ideation and denies suicidal ideation DS: Data Data Completed and Pending Labs on day of discharge: Labs from last 24 hours 08/25/24 08/25/24 08/24/24 09:07 08:06 16:51 WBC 6.3 RBC 4.40 L Hgb 13.2 L Hct 40.5 L MCV 92.0 MCH 30.0 MCHC 32.6 RDW 13.5 Plt Count 265 MPV 9.4 L Neut % (Auto) 73.5 Lymph % (Auto) 13.8 L Shoshone % (Auto) 11.1 Eos % (Auto) 1.1 Baso % (Auto) 0.3 Neut # (Auto) 4.7 Lymph # (Auto) 0.9 L Shoshone # (Auto) 0.7 Eos # (Auto) 0.1 Baso # (Auto) 0.0 Abs Immat Gran (auto) 0.01 Seg Neuts % (Manual) Lymphocytes % (Manual) Monocytes % (Manual) Eosinophils % (Manual) Basophils % (Manual) Imm/Tot Granulo (auto) 0.2 Neutrophils # (Manual) Lymphocytes # (Manual) Monocytes # (Manual) Eosinophils # (Manual) Basophils # (Manual) PT 10.9 INR 1.03 APTT 30.3 D-Dimer Sodium 137 Potassium 4.2 Chloride 103 Carbon Dioxide 26.7 Anion Gap 11.5 BUN 17.0 Creatinine 0.99 Est GFR ( Amer) >60 Est GFR (Non-Af Amer) >60 BUN/Creatinine Ratio 17.2 Glucose 119 H Estimat Average Glucose Hemoglobin A1c Calcium 8.2 L Magnesium 2.0 Total Bilirubin 0.5 AST 16 ALT 15 L Alkaline Phosphatase 71 Troponin I High Sens 4.6 6.1 Total Protein 6.3 L Albumin 3.1 L Globulin 3.2 Albumin/Globulin Ratio 1.0 Triglycerides Cholesterol LDL Cholesterol, Calc VLDL Cholesterol HDL Cholesterol Cholesterol/HDL Ratio Influenza Type A Ag Negative Influenza Type B Ag Negative SARS-CoV-2 Ag (CV2AG) Negative 08/24/24 08/24/24 13:24 11:47 WBC 9.7 RBC 4.73 Hgb 14.1 Hct 43.3 MCV 91.5 MCH 29.8 MCHC 32.6 RDW 13.2 Plt Count 293 MPV 9.5 Neut % (Auto) Lymph % (Auto) Shoshone % (Auto) Eos % (Auto) Baso % (Auto) Neut # (Auto) Lymph # (Auto) Shoshone # (Auto) Eos # (Auto) Baso # (Auto) Abs Immat Gran (auto) Seg Neuts % (Manual) 87.0 H Lymphocytes % (Manual) 6.0 L Monocytes % (Manual) 6.0 Eosinophils % (Manual) 1.0 Basophils % (Manual) 0.0 L Imm/Tot Granulo (auto) Neutrophils # (Manual) 8.43 H Lymphocytes # (Manual) 0.58 L Monocytes # (Manual) 0.58 Eosinophils # (Manual) 0.09 Basophils # (Manual) 0.00 PT INR APTT D-Dimer 0.78 H* Sodium 140 Potassium 4.3 Chloride 105 Carbon Dioxide 29.0 Anion Gap 10.3 BUN 18.0 Creatinine 0.98 Est GFR ( Amer) >60 Est GFR (Non-Af Amer) >60 BUN/Creatinine Ratio 18.4 Glucose 137 H Estimat Average Glucose 134 Hemoglobin A1c 6.3 H Calcium 9.2 Magnesium Total Bilirubin AST ALT Alkaline Phosphatase Troponin I High Sens 5.6 5.7 Total Protein Albumin Globulin Albumin/Globulin Ratio Triglycerides 84 Cholesterol 229 H LDL Cholesterol, Calc 151.0 VLDL Cholesterol 16.8 HDL Cholesterol 62 H Cholesterol/HDL Ratio 3.7 Influenza Type A Ag Influenza Type B Ag SARS-CoV-2 Ag (CV2AG) Discharge Plan Discharge Disposition: [facility] Condition: Good Discharge Date/Time: 08/25/24 16:16 Discharge Location: [facility] Discharge location: [facility]. Room 3120
--- NOTE | 2024-08-25 11:06 | REH.PTDLY ---
Physical Therapy Daily Note PT Daily Note/Assess Start: 08/24/24 17:23 Freq: Status: Active Protocol: Document 08/25/24 10:55 FEMI (Rec: 08/25/24 11:06 FEMI [id number]) Physical Therapy Daily Note/Assessment Time In 09:30 Time Out 09:45 Subjective Nursing states pt is ok for treatment. Pt reports having morphine earlier for chest pain and denies any pain now. Still feeling lightheaded. Wearing O2 initially, but nursing comes in and removes this. Pt is pending a transfer to [facility] for cardiac. Therapeutic Exercise 7 Minutes (minutes) Therapeutic Exercise 0 Units Therapeutic Exercise Instructed in seated exs 10x ea followed by standing Treatment marching, mini squats, and HR. Mild feeling of lightheadedness initially upon standing, but minimizes pt states. Therapeutic Activity 8 Minutes (minutes) Therapeutic Activity 1 Units Therapeutic Activity Sit to stand transfers with SBA. Gait training with RW Comments 125 feet SBA at slow pace. Cues with turning to reduce dizziness. Pt stops after turning as this does increase some dizziness, but then subsides. Pt Ind with bed mobility. Total Therapy 15 Minutes Total Physical 1 Therapy Units Daily Note Summary Pt still has some dizziness initially with standing, but improves as he is up. Pt is to be transferred to [facility] later today most likely per Dr. Oh for cardiac reasons.
--- NOTE | 2024-08-25 14:27 | PC.NURSE ---
Jennifer Pal from [facility] called with Bed number for transfer of RM 230, Mr. Basil Mae. Pt will be transferred to RM 3104.
[2024-08-25 14:31] LABS: INR 1.08; Prothrombin Time 11.4 sec (9.0-11.6)
--- NOTE | 2024-08-25 15:26 | PC.NURSE ---
1525 - Report called to [facility]. Questions and concerns addressed.
[2024-08-25] MEDS: ONDANSETRON PF 4 MG/2 ML VIAL IV (16:15)
== END 2024-08-25 16:16 | disposition short-term general hospital (02) ==
LOC: ER 13:59 → MS 14:51
PROVIDERS: Admitting Provider Internal Medicine; Emergency Provider Emergency Medicine; PCP Family Medicine; Visit Provider Internal Medicine
DX: I20.0 Unstable angina (principal); R07.9 Chest pain, unspecified; R06.02 Shortness of breath; R79.89 Other specified abnormal findings of blood chemistry; Z87.891 Personal history of nicotine dependence; R42 Dizziness and giddiness; Z79.82 Long term (current) use of aspirin
CPT/HCPCS: 36415; 71045; 71275; 80048; 80053; 80061; 83036; 83735; 84484; 85007; 85025; 85027; 85378; 85610; 85730; 87804; 87811; 93005; 93306; 94761; 96372; 96374; 96375; 96376; 97161; 97530; 99285; G0378; J1644; J1650; J2270; J2405; Q9967

== ENCOUNTER 2024-09-17 13:02 | Outpatient (OUT) | payer MEDICARE, OTHER, SELFPAY ==
--- OUTSIDE RECORDS SUMMARY | 2024-09-17 13:24 | XMS_ITS | CCD ---
Author Organization [facility] Care Team Providers Care Adult [employer] Instructor Name Role Phone DWEIK, RAED Referring Unavailable [...] Referring Unavailable Chuck Odonnell Primary Care Provider Agustin Stoll Attending Provider [phone] OleAgustin spicer Unavailable BELLE, DR NG Admitting Unavailable HOUSE, DR NG Attending Unavailable HOUSE, DR NG Primary Care Unavailable [facility], DR ANALILIA Lucero Consulting Unavailable HOUSE, DR NG Consulting Unavailable [facility], ANALILIA Consulting Unavailable HOUSE, DR NG Admitting Unavailable HOUSE, DR NG Attending Unavailable HOUSE, DR NG Primary Care Unavailable HOUSE, DR NG Consulting Unavailable HOUSE, DR NG Admitting Unavailable HOUSE, DR NG Attending Unavailable HOUSE, DR NG Primary Care Unavailable HOUSE, DR NG Consulting Unavailable [facility], ETHEL Consulting Unavailable ROSE AHUJA Attending Unavailable NON STAFF Primary Care Provider Unavailanalilia e Bernadette Mercado APRN Attending Provider Bernadette Mercado M Admitting Unavailable RogelioBernadette allison Attending Unavailable NON STAFF Primary Care Unavailable KASHMIR UMANA Attending Unavailable FATOUMATA, SAMAR Referring Unavailable JESS, YOMAIRA Admitting Unavailable HANNADAVID Attending Unavailable DEONDRE LANE Referring Unavailable NEYMAR CURRIE Referring Unavailable FATOUMATA, GEMMA Referring Unavailable FATOUMATA, GEMMA Referring Unavailable HOUSE, DO NG P Attending Unavailable HOUSE, CHUCK P Primary Care Unavailable HOUSE, CHUCK Dixon Primary Care Unavailable HOUSE, DO CHUCK P Attending Unavailable Medications Current Medications Medication Drug Class(es) [...] Active Problems Problem Classification Problem Date Documented Date Episodic/Chronic Cardiac dysrhythmias (4 sources) Bradycardia, unspecified; Translations: [Palpitations] Onset: 09-07-2024 Episodic Coronary atherosclerosis and other heart disease (4 sources) Atherosclerotic heart disease of [place] coronary artery without angina pectoris; Translations: [Unstable angina] Onset: 08-25-2024 Chronic Other lower respiratory disease (1 source) Interstitial pulmonary disease, unspecified; Translations: [Interstitial pulmonary disease, unspecified] Onset: 05-01-2018 Chronic Other lower respiratory disease (7 sources) Shortness of breath; Translations: [Shortness of [...] Test Name Value Interpretation Reference Range Facility Outside Recordson 09-12-2024 Outside Records [id number]24 Patient Handout [id number] [facility]iton 09-07-2024 Follow-up visit [id number] Srinivas Mae 1955 M Date Provider Department Center 09/07/2024 KASHMIR DODW BENSON [facility] Family History Problem Relation Age of Onset Other Father's Sister Family Status - Relation Status Age at Father's Sister Level of Service:47538 MA OFFICE/OUTPATIENT ESTABLISHED MOD MDM 30 MIN Normal [facility] 36on 08-29-2024 36 Post Discharge Call Good morning, I am Katie Linares RN a lead nurse from [facility]. I am calling you to follow up on your stay with us and make sure all of your questions have been answered. You will be receiving a survey either electronic or via mail and we always aim to receive 9???s and 10???s. If there is any reason you feel as though you cannot give us these scores please indicate that now. 1. How have you been feeling since being discharged from the hospital? okay 2. Did you understand your discharge instructions when they were given to prior to leaving? Yes Were you given an opportunity to ask questions? Yes 3. While a patient in the hospital, was your call light answered in a timely manner? Yes 4. Do have access to all medications that were prescribed to you at discharge? Yes 5. How would you rate your overall stay on a scale of 0-10, 10 being the best experience you have ever had. 10 6. Do you have any further questions you would like to discuss? No Patient Name Srinivas Mae Date 08/29/24 [facility] Telephoneon 08-29-2024 Telephone [id number] Srinivas Mae 1955 M Date Provider Department Center 08/29/2024 KATIE STEELE [facility] No family history on file [facility] 30on 08-28-2024 30 Sales Representative [employer] called jane PCP office per patients request. Patients PCP has recently moved to [address] [place] [address] phone:[phone] fax :[phone] (per patient) Sales Representative [employer] called patients PCP office per patients request. Sales Representative [employer] was told that patient has not seen Dr Odonnell since he has moved [facility]. Due to this patient will need to fill out new patient paperwork and that patient can not be scheduled for appointment until paperwork is filled out and PCP office offered to fax over new patient paperwork. Sales Representative [employer] went bedside and informed patient of this. Patient stated that he understands and stated he wants new patient forms to faxed to [facility] so he can fill them out and take them into the clinic. Sales Representative [employer] informed PCP office of this and provided fax number. Sales Representative [employer] received fax from PCP office with new patient paperwork. Sales Representative [employer] went bedside and gave forms to patient. Patient stated he had no other needs at this time. [facility] 30 The patient is Moderately Stable - Low risk of patient condition declining or worsening The patient's goals for the shift include comfort/rest The clinical goals for the shift include stable vs Problem: Pain - Adult Goal: Verbalizes/displays adequate comfort level or baseline comfort level Outcome: Progressing Flowsheets (Taken 08/28/2024 0800) Verbalizes/displays adequate comfort level or baseline comfort level: Assess pain using appropriate pain scale Encourage patient to monitor pain and request assistance Administer analgesics based on type and severity of pain and evaluate response Implement non-pharmacological measures as appropriate and evaluate response Consider cultural and social influences on pain and pain management Notify Licensed Independent Practitioner if interventions unsuccessful or patient reports new pain Problem: Safety - Adult Goal: Free from fall injury Outcome: Progressing Flowsheets (Taken 08/28/2024799) Free from fall injury: Assess patient frequently for physical needs Casey fall precautions as indicated by assessment Educate patient/family on patient safety, including physical limitations Consider OT/PT consult to assist with strengthening/mobility Instruct patient to call for assistance with activity based on assessment Modify environment to reduce risk of injury Identify cognitive and physical deficits and behaviors that affect risk of falls Problem: Discharge Planning Goal: Discharge to home or other facility with appropriate resources Outcome: Progressing Flowsheets (Taken 08/28/2024799) Discharge to home or other facility with appropriate resources: Identify barriers to discharge with patient and caregiver Arrange for needed discharge resources and transportation as appropriate Identify discharge learning needs (meds, wound care, etc) Arrange for interpreters to assist at discharge as needed Refer to discharge planning if patient needs post-hospital services based on physician order or complex needs related to functional status, cognitive ability or social support system Problem: Chronic Conditions and Co-morbidities Goal: Patient's chronic conditions and co-morbidity symptoms are monitored and maintained or improved Outcome: Progressing Flowsheets (Taken 08/28/2024799) Care Plan - Patient's Chronic Conditions and Co-Morbidity Symptoms are Monitored and Maintained or Improved: Collaborate with multidisciplinary team to address chronic and comorbid conditions and prevent exacerbation or deterioration Monitor and assess patient's chronic conditions and comorbid symptoms for stability, deterioration, or improvement Update acute care plan with appropriate goals if chronic or comorbid symptoms are exacerbated and prevent overall improvement and discharge Problem: Neurosensory - Adult Goal: Achieves stable or improved neurological status Outcome: Progressing Flowsheets (Taken 08/28/2024799) Achieves stable or improved neurological status: Assess for and report changes in neurological status Initiate measures to prevent increased intracranial pressure Maintain blood pressure and fluid volume within ordered parameters to optimize cerebral perfusion and minimize risk of hemorrhage Monitor temperature, glucose, and sodium. Initiate appropriate interventions as ordered Goal: Absence of seizures Outcome: Progressing Flowsheets (Taken 08/28/2024799) Absence of seizures: Monitor for seizure activity. If seizure occurs, document type and location of movements and any associated apnea If seizure occurs, turn head to side and suction secretions as needed Support airway/breathing, administer oxygen as needed Administer anticonvulsants as ordered Goal: Remains free of injury related to seizures activity Outcome: Progressing Flowsheets (Taken 08/28/2024799) Remains free of injury related to seizure activity: Maintain airway, patient safety and administer oxygen as ordered If seizure occurs, turn patient to side and suction secretions as needed Reorient patient post seizure Instruct patient/family to call for assistance with activity based on assessment Instruct patient/family to notify RN of any seizure activity Seizure pads on all 4 side rails Monitor patient for seizure activity, document and report duration and description of seizure to Licensed Independent Practitioner Goal: Achieves maximal functionality and self care Outcome: Progressing Problem: Respiratory - Adult Goal: Achieves optimal ventilation and oxygenation Outcome: Progressing Flowsheets (Taken 08/28/2024799) Achieves optimal ventilation and oxygenation: Assess for changes in respiratory status Assess and instruct to report shortness of breath or any respiratory difficulty Respiratory therapy support as indicated Assess the need for suctioning and aspirate as needed Initiate smoking cessation protocol as indicated Oxygen sup (more content not included)... Normal [facility] 30 The patient is Moderately Stable - Low risk of patient condition declining or worsening The patient's goals for the shift include comfort/rest The clinical goals for the shift include VSS, safety Problem: Pain - Adult Goal: Verbalizes/displays adequate comfort level or baseline comfort level Outcome: Progressing Flowsheets (Taken 08/27/20241941) Verbalizes/displays adequate comfort level or baseline comfort level: Encourage patient to monitor pain and request assistance Assess pain using appropriate pain scale Administer analgesics based on type and severity of pain and evaluate response Problem: Respiratory - Adult Goal: Achieves optimal ventilation and oxygenation Outcome: Progressing Flowsheets (Taken 08/27/20241941) Achieves optimal ventilation and oxygenation: Assess for changes in respiratory status Assess for changes in mentation and behavior Position to facilitate oxygenation and minimize respiratory effort Problem: Cardiovascular - Adult Goal: Maintains optimal cardiac output and hemodynamic stability Outcome: Progressing Flowsheets (Taken 08/27/20241941) Maintains optimal cardiac output and hemodynamic stability: Monitor blood pressure and heart rate Monitor urine output and notify Licensed Independent Practitioner for values outside of normal range Assess for signs of decreased cardiac output Administer fluid and/or volume expanders as ordered Administer vasoactive medications as ordered Problem: Musculoskeletal - Adult Goal: Return mobility to safest level of function Outcome: Progressing Flowsheets (Taken 08/27/20241941) Return mobility to safest level of function: Assess patient stability and activity tolerance for standing, transferring and ambulating with or without assistive devices Assist with transfers and ambulation using safe patient handling equipment as needed Instruct patient/family in ordered activity level Normal [facility] BASIC METABOLIC PANELon 08-05 Anion gap [Moles/Vol] 8 mmol/L Normal 7-20 [facility] Comment on above: Performed By: #### L [id number] #### [facility] ([facility]) [address] [place] [address] Calcium [Mass/Vol] 8.7 mg/dL Normal 8.6-10.3 [facility] Comment on above: Performed By: #### L [id number] #### [facility] ([facility]) [address] [place] [address] Chloride [Moles/Vol] 105 mmol/L Normal 98-107 [facility] Comment on above: Performed By: #### L [id number] #### [facility] ([facility]) [address] [place] [address] CO2 [Moles/Vol] 28 mmol/L Normal 21- [facility] Comment on above: Performed By: #### L [id number] #### [facility] ([facility]) [address] [place] [address] Creatinine [Mass/Vol] 0.88 mg/dL Normal 0.70-1.30 [facility] Comment on above: Performed By: #### L [id number] #### [facility] ([facility]) [address] [place] [address] GLOMERULAR FILTRATION RATE ML/MIN/1.73 SQ M.PREDICTED 92.5 mL/min/1.73m*2 Normal >60.0 [facility] Comment on above: Result Comment: The [facility]???s estimated glomerular filtration rate (eGFR) will no longer include consideration of race in its calculation. The National Kidney Foundation???s eGFR Task Force developed new recommendations for the estimation of the glomerular filtration rate in the [place] They recommend immediate implementation of the new equation refit without the race variable in all laboratories because the calculation does not include race. In addition to not including race in the calculation and reporting, it included diversity in its development, and has acceptable performance characteristics and potential consequences that do not disproportionately affect any one group of individuals. Performed By: #### L [id number] #### [facility] ([facility]) [address] [place] [address] Glucose [Mass/Vol] 110 mg/dL High 70-100 [facility] Comment on above: Performed By: #### L [id number] #### [facility] ([facility]) [address] [place] [address] Potassium [Moles/Vol] 4.4 mmol/L Normal 3.5-5.1 [facility] Comment on above: Performed By: #### L [id number] #### [facility] ([facility]) [address] [place] [address] Sodium [Moles/Vol] 137 mmol/L Normal 136-145 [facility] Comment on above: Performed By: #### L [id number] #### [facility] ([facility]) [address] [place] [address] Urea nitrogen [Mass/Vol] 19 mg/dL Normal 7-25 [facility] Comment on above: Performed By: #### L [id number] #### [facility] ([facility]) [address] [place] [address] UREA NITROGEN/CREATININE (MASS RATIO) IN SER/PLAS 21.6 Normal [facility] Comment on above: Performed By: #### L [id number] #### [facility] ([facility]) [address] [place] [address] CBCon 08-28-2024 Erythrocyte distribution width (RBC) [Ratio] 13.1 % Normal 11.5-15.0 [facility] Comment on above: Performed By: #### L [id number] #### [facility] ([facility]) [address] [place] [address] ERYTHROCYTE MEAN CORPUSCULAR HEMOGLOBIN CONCENTRATION (G/DL) BY AUTOMATED 32.7 g/dL Normal 32.0-35.0 [facility] Comment on above: Performed By: #### L [id number] #### [facility] ([facility]) [address] [place] [address] Hematocrit (Bld) [Volume fraction] 34.6 % Low 39.0-55.0 [facility] Comment on above: Performed By: #### L [id number] #### [facility] ([facility]) [address] [place] [address] Hemoglobin (Bld) [Mass/Vol] 11.3 g/dL Low 13.0-17.0 [facility] Comment on above: Performed By: #### L [id number] #### [facility] ([facility]) [address] [place] [address] MCH (RBC) [Entitic mass] 30.1 pg Normal 27.0-33.0 [facility] Comment on above: Performed By: #### L [id number] #### [facility] ([facility]) [address] [place] [address] MCV (RBC) [Entitic vol] 92.3 fL Normal 82.0-98.0 [facility] Comment on above: Performed By: #### L [id number] #### [facility] ([facility]) [address] [place] [address] PLATELETS (10*3/UL) IN BLOOD AUTOMATED COUNT 281 10*3/uL Normal 150-400 [facility] Comment on above: Performed By: #### L [id number] #### [facility] ([facility]) [address] [place] [address] RBC (Bld) [#/Vol] 3.75 10*6/uL Low 4.20-5.70 [facility] Comment on above: Performed By: #### L [id number] #### [facility] ([facility]) [address] [place] [address] WBC (Bld) [#/Vol] 6.79 10*3/uL Normal 4.00-10.60 [facility] Comment on above: Performed By: #### L [id number] #### [facility] ([facility]) [address] [place] [address] MAGNESIUMon 08-28-2024 Magnesium [Mass/Vol] 1.8 mg/dL Low 1.9-2.7 [facility] Comment on above: Performed By: #### L [id number] ####[facility] ([facility])[address] [place] [address] 30on 08-27-2024 30 Daily Case Managemen t Update Multidisciplinary rounds have been completed. Barriers to Discharge: Patient went for heart cath and JUSTINE today. Discharge dispo: pending clinical course, plan at this time is for patient to discharge home when medically ready. Diet: Dietary Orders (From admission, onward) Start Ordered 08/27/24 1412 Regular Diet Heart Healthy/HTN, CABG,Stroke, (2gNA, low fat, low cholesterol) Diet effective now Question Answer Comment Room Service? Yes Fat restriction: Heart Healthy/HTN, CABG,Stroke, (2gNA, low fat, low cholesterol) 08/27/24 1411 Physician Expected Discharge Date: 08/27/2024 Discharge Delays: PT Six Click Score: 22 OT Six Click Score: PT Recommendations: OT Recommendations: New Consults: Normal [facility] 30 The patient is Moderately Stable - Low risk of patient condition declining or worsening The patient's goals for the shift include comfort/rest The clinical goals for the shift include stable vs Problem: Pain - Adult Goal: Verbalizes/displays adequate comfort level or baseline comfort level Outcome: Progressing Flowsheets (Taken 08/27/2024 0833) Verbalizes/displays adequate comfort level or baseline comfort level: Encourage patient to monitor pain and request assistance Implement non-pharmacological measures as appropriate and evaluate response Assess pain using appropriate pain scale Administer analgesics based on type and severity of pain and evaluate response Consider cultural and social influences on pain and pain management Notify Licensed Independent Practitioner if interventions unsuccessful or patient reports new pain Problem: Safety - Adult Goal: Free from fall injury Outcome: Progressing Flowsheets (Taken 08/27/2024 0833) Free from fall injury: Assess patient frequently for physical needs Identify cognitive and physical deficits and behaviors that affect risk of falls Consider OT/PT consult to assist with strengthening/mobility Modify environment to reduce risk of injury Instruct patient to call for assistance with activity based on assessment Casey fall precautions as indicated by assessment Educate patient/family on patient safety, including physical limitations Problem: Discharge Planning Goal: Discharge to home or other facility with appropriate resources Outcome: Progressing Flowsheets (Taken 08/27/2024832) Discharge to home or other facility with appropriate resources: Identify barriers to discharge with patient and caregiver Arrange for needed discharge resources and transportation as appropriate Identify discharge learning needs (meds, wound care, etc) Arrange for interpreters to assist at discharge as needed Refer to discharge planning if patient needs post-hospital services based on physician order or complex needs related to functional status, cognitive ability or social support system Problem: Chronic Conditions and Co-morbidities Goal: Patient's chronic conditions and co-morbidity symptoms are monitored and maintained or improved Outcome: Progressing Flowsheets (Taken 08/27/2024832) Care Plan - Patient's Chronic Conditions and Co-Morbidity Symptoms are Monitored and Maintained or Improved: Monitor and assess patient's chronic conditions and comorbid symptoms for stability, deterioration, or improvement Collaborate with multidisciplinary team to address chronic and comorbid conditions and prevent exacerbation or deterioration Update acute care plan with appropriate goals if chronic or comorbid symptoms are exacerbated and prevent overall improvement and discharge Problem: Neurosensory - Adult Goal: Achieves stable or improved neurological status Outcome: Progressing Flowsheets (Taken 08/27/2024832) Achieves stable or improved neurological status: Assess for and report changes in neurological status Initiate measures to prevent increased intracranial pressure Maintain blood pressure and fluid volume within ordered parameters to optimize cerebral perfusion and minimize risk of hemorrhage Monitor temperature, glucose, and sodium. Initiate appropriate interventions as ordered Goal: Absence of seizures Outcome: Progressing Flowsheets (Taken 08/27/2024832) Absence of seizures: Monitor for seizure activity. If seizure occurs, document type and location of movements and any associated apnea If seizure occurs, turn head to side and suction secretions as needed Administer anticonvulsants as ordered Support airway/breathing, administer oxygen as needed Goal: Remains free of injury related to seizures activity Outcome: Progressing Flowsheets (Taken 08/27/2024832) Remains free of injury related to seizure activity: Maintain airway, patient safety and administer oxygen as ordered Monitor patient for seizure activity, document and report duration and description of seizure to Licensed Independent Practitioner If seizure occurs, turn patient to side and suction secretions as needed Reorient patient post seizure Seizure pads on all 4 side rails Instruct patient/family to call for assistance with activity based on assessment Instruct patient/family to notify RN of any seizure activity Goal: Achieves maximal functionality and self care Outcome: Progressing Flowsheets (Taken 08/27/2024 0833) Achieves maximal functionality and self care: Monitor swallowing and airway patency with patient fatigue and changes in neurological status Encourage and assist patient to increase activity and self care with guidance from physical therapy/occupational therapy Encourage visually impaired, hearing impaired and aphasic patients to use assistive/communicatio n devices Problem: Respiratory - Adult Goal: Achieves optimal venti (more content not included)... Normal [facility] ANTI-XA (HEPARIN LEVEL)on HEPARIN UNFRACTIONATED (U/ML) IN PPP BY CHROMOGENIC METHOD 0.25 IU/mL Low 0.3-0.7 [facility] Comment on above: Order Comment: Check anti-Xa level every 6 hours while on heparin infusion, or per protocol. Result Comment: Christie roxaban and Apixaban will interfere with the anti Xa assay used to monitor UFH and LMWH. Performed By: #### L [id number] #### [facility] ([facility]) [address] [place] [address] BASIC METABOLIC PANELon 08-05 Anion gap [Moles/Vol] 8 mmol/L Normal 7-20 [facility] Comment on above: Performed By: #### L [id number] #### [facility] ([facility]) [address] [place] [address] Calcium [Mass/Vol] 8.6 mg/dL Normal 8.6-10.3 [facility] Comment on above: Performed By: #### L [id number] #### [facility] ([facility]) [address] [place] [address] Chloride [Moles/Vol] 104 mmol/L Normal 98-107 [facility] Comment on above: Performed By: #### L [id number] #### [facility] ([facility]) [address] [place] [address] CO2 [Moles/Vol] 30 mmol/L Normal 21-31 [facility] Comment on above: Performed By: #### L [id number] #### [facility] ([facility]) [address] [place] [address] Creatinine [Mass/Vol] 0.87 mg/dL Normal 0.70-1.30 [facility] Comment on above: Performed By: #### L [id number] #### [facility] ([facility]) [address] [place] [address] GLOMERULAR FILTRATION RATE ML/MIN/1.73 SQ M.PREDICTED 92.8 mL/min/1.73m*2 Normal >60.0 [facility] Comment on above: Result Comment: The [facility]???s estimated glomerular filtration rate (eGFR) will no longer include consideration of race in its calculation. The National Kidney Foundation???s eGFR Task Force developed new recommendations for the estimation of the glomerular filtration rate in the [place] They recommend immediate implementation of the new equation refit without the race variable in all laboratories because the calculation does not include race. In addition to not including race in the calculation and reporting, it included diversity in its development, and has acceptable performance characteristics and potential consequences that do not disproportionately affect any one group of individuals. Performed By: #### L [id number] #### [facility] ([facility]) [address] [place] [address] Glucose [Mass/Vol] 99 mg/dL Normal 70-100 [facility] Comment on above: Performed By: #### L [id number] #### [facility] ([facility]) [address] [place] [address] Potassium [Moles/Vol] 4.3 mmol/L Normal 3.5-5.1 [facility] Comment on above: Performed By: #### L [id number] #### [facility] ([facility]) [address] [place] [address] Sodium [Moles/Vol] 138 mmol/L Normal 136-145 [facility] Comment on above: Performed By: #### L [id number] #### [facility] ([facility]) [address] [place] [address] Urea nitrogen [Mass/Vol] 15 mg/dL Normal 7-25 [facility] Comment on above: Performed By: #### L [id number] #### [facility] ([facility]) [address] [place] [address] UREA NITROGEN/CREATININE (MASS RATIO) IN SER/PLAS 17.2 Normal [facility] Comment on above: Performed By: #### L [id number] #### [facility] ([facility]) [address] [place] [address] CBC WITH AUTO DIFFERENTIALon 08-27-2024 Basophils (Bld) [#/Vol] 0.03 10*3/uL Normal 0.00-0.20 [facility] Comment on above: Performed By: #### L [id number] ####[facility] ([facility])[address] [place] [address] Basophils/100 WBC (Bld) 0.4 % Normal 0.0-1.0 [facility] Comment on above: Performed By: #### L [id number] ####[facility] ([facility])[address] [place] [address] Eosinophils (Bld) [#/Vol] 0.17 10*3/uL Normal 0.00-0.50 [facility] Comment on above: Performed By: #### L [id number] ####[facility] ([facility])[address] [place] [address] Eosinophils/100 WBC (Bld) 2.4 % Normal 0.0-6.0 [facility] Comment on above: Performed By: #### L [id number] ####[facility] ([facility])[address] [place] [address] Erythrocyte distribution width (RBC) [Ratio] 13.3 % Normal 11.5-15.0 [facility] Comment on above: Performed By: #### L [id number] ####[facility] [place] [address] ERYTHROCYTE MEAN CORPUSCULAR HEMOGLOBIN CONCENTRATION (G/DL) BY AUTOMATED 32.6 g/dL Normal 32.0-35.0 [facility] Comment on above: Performed By: #### L [id number] ####[facility] ([facility] [place] [address] Hematocrit (Bld) [Volume fraction] 35.9 % Low 39.0-55.0 [facility] Comment on above: Performed By: #### L [id number] ####[facility] ([facility] [place] [address] Hemoglobin (Bld) [Mass/Vol] 11.7 g/dL Low 13.0-17.0 [facility] Comment on above: Performed By: #### L [id number] ####[facility] ([facility])[address] [place] [address] Immature granulocytes (Bld) [#/Vol] 0.03 10*3/uL Normal 0.00-0.20 [facility] Comment on above: Performed By: #### L [id number] ####[facility] ([facility] [place] [address] Immature granulocytes/100 WBC (Bld) 0.4 % Normal 0.0-1.0 [facility] Comment on above: Performed By: #### L [id number] ####[facility] ([facility])[address] [place] [address] Lymphocytes (Bld) [#/Vol] 1.96 10*3/uL Normal 1.20-4.00 [facility] Comment on above: Performed By: #### L [id number] ####[facility] ([facility])[address] [place] [address] Lymphocytes/100 WBC (Bld) 27.5 % Normal 20.0-45.0 [facility] Comment on above: Performed By: #### L [id number] ####[facility] ([facility])[address] [place] [address] MCH (RBC) [Entitic mass] 30.0 pg Normal 27.0-33.0 [facility] Comment on above: Performed By: #### L [id number] ####[facility] ([facility])[address] [place] [address] MCV (RBC) [Entitic vol] 92.1 fL Normal 82.0-98.0 [facility] Comment on above: Performed By: #### L [id number] ####[facility] ([facility])[address] [place] [address] Monocytes (Bld) [#/Vol] 0.88 10*3/uL Normal 0.10-1.00 [facility] Comment on above: Performed By: #### L [id number] ####[facility] ([facility])[address] [place] [address] Monocytes/100 WBC (Bld) 12.4 % High 5.0-12.0 [facility] Comment on above: Performed By: #### L [id number] ####[facility] ([facility])[address] [place] [address] Neutrophils (Bld) [#/Vol] 4.05 10*3/uL Normal 1.60-7.60 [facility] Comment on above: Performed By: #### L [id number] ####[facility] ([facility])[address] [place] [address] Neutrophils/100 WBC (Bld) 56.9 % Normal 40.0-72.0 [facility] Comment on above: Performed By: #### L [id number] ####[facility] ([facility] [place] [address] NRBC (PER 100 WBCS) BY AUTOMATED COUNT 0.0 % Normal 0 [facility] Comment on above: Performed By: #### L [id number] ####[facility] ([facility])[address] [place] [address] PLATELETS (10*3/UL) IN BLOOD AUTOMATED COUNT 272 10*3/uL Normal 150-400 [facility] Comment on above: Performed By: #### L [id number] ####[facility] ([facility])[address] [place] [address] RBC (Bld) [#/Vol] 3.90 10*6/uL Low 4.20-5.70 [facility] Comment on above: Performed By: #### L [id number] ####[facility] ([facility])[address] [place] [address] WBC (Bld) [#/Vol] 7.12 10*3/uL Normal 4.00-10.60 [facility] Comment on above: Performed By: #### L [id number] ####[facility] ([facility])[address] [place] [address] HPon 08-27-2024 HP H&P reviewed. The patient was examined and there are no changes to the H&P. Discussed risks, benefits, and alternative therapies with the patient, he understands and willing to proceed with coronary angiogram and possible PCI. Ronel Barth MD PGY-7 Interventional Photographs Curator [facility] NURSNOTEon 08-27-2024 NURSNOTE Sales Representative [employer] was called in to room at 1645 when pt was bleeding from tr band. Sales Representative [employer] inflated tr band back up to 12 ml of air and notified cardiology. Pt was asymptomatic wit no chest pain, lightheadedness or dizziness. therapist respiratory was at bedside at 1652 and observed pt. therapist respiratory said hold air at 12 ml for 1 hour and then release air per protocol . If it starts to bleed again contact cardiology for further orders. Normal [facility] 30on 08-26-2024 30 The patient is Moderately Stable - Low risk of patient condition declining or worsening The patient's goals for the shift include comfort The clinical goals for the shift include vss Normal [facility] ANTI-XA (HEPARIN LEVEL)on HEPARIN UNFRACTIONATED (U/ML) IN PPP BY CHROMOGENIC METHOD 0.42 IU/mL Normal 0.3-0.7 [facility] Comment on above: Order Comment: Check anti-Xa level every 6 hours while on heparin infusion, or per protocol. Result Comment: [place] roxaban and Apixaban will interfere with the anti Xa assay used to monitor UFH and LMWH. Performed By: #### L [id number] #### [facility] ([facility]) [address] [place] [address] HEPARIN UNFRACTIONATED (U/ML) IN PPP BY CHROMOGENIC METHOD 0.54 IU/mL Normal 0.3-0.7 [facility] Comment on above: Order Comment: Check anti-Xa level every 6 hours while on heparin infusion, or per protocol. Result Comment: [place] roxaban and Apixaban will interfere with the anti Xa assay used to monitor UFH and LMWH. Performed By: #### L [id number] ####[facility] ([facility])[address] [place] [address] HEPARIN UNFRACTIONATED (U/ML) IN PPP BY CHROMOGENIC METHOD 0.82 IU/mL High 0.3-0.7 [facility] Comment on above: Order Comment: Check anti-Xa level every 6 hours while on heparin infusion, or per protocol. Result Comment: [place] roxaban and Apixaban will interfere with the anti Xa assay used to monitor UFH and LMWH. Performed By: #### L [id number] #### [facility] ([facility]) [address] [place] [address] B-TYPE NATRIURETIC PEPTIDEon 08-26-2024 Natriuretic peptide B (Bld) [Mass/Vol] 53 pg/mL Normal 0-100 [facility] Comment on above: Order Comment: Add o n Performed By: #### L [id number] #### [facility] ([facility]) [address] [place] [address] BASIC METABOLIC PANELon 08-05 Anion gap [Moles/Vol] 9 mmol/L Normal 7-20 [facility] Comment on above: Performed By: #### L [id number] #### [facility] ([facility]) [address] [place] [address] Calcium [Mass/Vol] 8.1 mg/dL Low 8.6-10.3 [facility] Comment on above: Performed By: #### L [id number] #### [facility] ([facility]) [address] [place] [address] Chloride [Moles/Vol] 105 mmol/L Normal 98-107 [facility] Comment on above: Performed By: #### L [id number] #### [facility] ([facility]) [address] [place] [address] CO2 [Moles/Vol] 27 mmol/L Normal 21-31 [facility] Comment on above: Performed By: #### L [id number] #### [facility] ([facility]) [address] [place] [address] Creatinine [Mass/Vol] 0.83 mg/dL Normal 0.70-1.30 [facility] Comment on above: Performed By: #### L [id number] #### [facility] ([facility]) [address] [place] [address] GLOMERULAR FILTRATION RATE ML/MIN/1.73 SQ M.PREDICTED 94.2 mL/min/1.73m*2 Normal >60.0 [facility] Comment on above: Result Comment: The [facility]???s estimated glomerular filtration rate (eGFR) will no longer include consideration of race in its calculation. The National Kidney Foundation???s eGFR Task Force developed new recommendations for the estimation of the glomerular filtration rate in the [place] They recommend immediate implementation of the new equation refit without the race variable in all laboratories because the calculation does not include race. In addition to not including race in the calculation and reporting, it included diversity in its development, and has acceptable performance characteristics and potential consequences that do not disproportionately affect any one group of individuals. Performed By: #### L [id number] #### [facility] ([facility]) [address] [place] [address] Glucose [Mass/Vol] 111 mg/dL High 70-100 [facility] Comment on above: Performed By: #### L [id number] #### [facility] ([facility]) [address] [place] [address] Potassium [Moles/Vol] 4.4 mmol/L Normal 3.5-5.1 [facility] Comment on above: Performed By: #### L [id number] #### [facility] [address] [place] [address] Sodium [Moles/Vol] 137 mmol/L Normal 136-145 [facility] Comment on above: Performed By: #### L [id number] #### [facility] ([facility]) [address] [place] [address] Urea nitrogen [Mass/Vol] 15 mg/dL Normal 7-25 [facility] Comment on above: Performed By: #### L [id number] #### [facility] ([facility]) [address] [place] [address] UREA NITROGEN/CREATININE (MASS RATIO) IN SER/PLAS 18.1 Normal [facility] Comment on above: Performed By: #### L [id number] #### [facility] ([facility]) [address] [place] [address] C-REACTIVE PROTEINon 025 C REACTIVE PROTEIN (MG/L) IN SER/PLAS 48.5 mg/L High <=5.0 [facility] Comment on above: Result Comment: Test ing performed using a new methodology, turbidimetry. Normal ranges have been updated. Old normal range was <8 mg/L. Performed By: #### L [id number] ####[facility] ([facility])[address] [place] [address] CBC WITH AUTO DIFFERENTIALon 08-26-2024 Basophils (Bld) [#/Vol] 0.02 10*3/uL Normal 0.00-0.20 [facility] Comment on above: Performed By: #### L [id number] #### [facility] ([facility]) [address] [facility] [place] [address] Basophils/100 WBC (Bld) 0.3 % Normal 0.0-1.0 [facility] Comment on above: Performed By: #### L [id number] #### [facility] [address] [facility] [place] [address] Eosinophils (Bld) [#/Vol] 0.08 10*3/uL Normal 0.00-0.50 [facility] Comment on above: Performed By: #### L [id number] #### [facility] ([facility]) [address] [place] [address] Eosinophils/100 WBC (Bld) 1.0 % Normal 0.0-6.0 [facility] Comment on above: Performed By: #### L [id number] #### [facility] ([facility]) [address] [place] [address] Erythrocyte distribution width (RBC) [Ratio] 13.4 % Normal 11.5-15.0 [facility] Comment on above: Performed By: #### L [id number] #### [facility] ([facility]) [address] [place] [address] ERYTHROCYTE MEAN CORPUSCULAR HEMOGLOBIN CONCENTRATION (G/DL) BY AUTOMATED 32.1 g/dL Normal 32.0-35.0 [facility] Comment on above: Performed By: #### L [id number] #### [facility] ([facility]) [address] [place] [address] Hematocrit (Bld) [Volume fraction] 35.2 % Low 39.0-55.0 [facility] Comment on above: Performed By: #### L [id number] #### [facility] ([facility] [address] [place] [address] Hemoglobin (Bld) [Mass/Vol] 11.3 g/dL Low 13.0-17.0 [facility] Comment on above: Performed By: #### L [id number] #### [facility] ([facility]) [address] [place] [address] Immature granulocytes (Bld) [#/Vol] 0.02 10*3/uL Normal 0.00-0.20 [facility] Comment on above: Performed By: #### L [id number] #### [facility] ([facility]) [address] [place] [address] Immature granulocytes/100 WBC (Bld) 0.3 % Normal 0.0-1.0 [facility] Comment on above: Performed By: #### L [id number] #### [facility] [address] [place] [address] Lymphocytes (Bld) [#/Vol] 1.78 10*3/uL Normal 1.20-4.00 [facility] Comment on above: Performed By: #### L [id number] #### [facility] ([facility]) [address] [place] [address] Lymphocytes/100 WBC (Bld) 23.1 % Normal 20.0-45.0 [facility] Comment on above: Performed By: #### L [id number] #### [facility] ([facility]) [address] [place] [address] MCH (RBC) [Entitic mass] 29.7 pg Normal 27.0-33.0 [facility] Comment on above: Performed By: #### L [id number] #### [facility] ([facility]) [address] [place] [address] MCV (RBC) [Entitic vol] 92.6 fL Normal 82.0-98.0 [facility] Comment on above: Performed By: #### L [id number] #### [facility] ([facility]) [address] [place] [address] Monocytes (Bld) [#/Vol] 0.96 10*3/uL Normal 0.10-1.00 [facility] Comment on above: Performed By: #### L [id number] #### [facility] ([facility]) [address] [place] [address] Monocytes/100 WBC (Bld) 12.4 % High 5.0-12.0 [facility] Comment on above: Performed By: #### L [id number] #### [facility] ([facility]) [address] [place] [address] Neutrophils (Bld) [#/Vol] 4.86 10*3/uL Normal 1.60-7.60 [facility] Comment on above: Performed By: #### L [id number] #### [facility] ([facility]) [address] [place] [address] Neutrophils/100 WBC (Bld) 62.9 % Normal 40.0-72.0 [facility] Comment on above: Performed By: #### L [id number] #### [facility] ([facility]) [address] [place] [address] NRBC (PER 100 WBCS) BY AUTOMATED COUNT 0.0 % Normal 0 [facility] Comment on above: Performed By: #### L [id number] #### [facility] ([facility]) [address] [place] [address] PLATELETS (10*3/UL) IN BLOOD AUTOMATED COUNT 256 10*3/uL Normal 150-400 [facility] Comment on above: Performed By: #### L [id number] #### [facility] ([facility]) [address] [place] [address] RBC (Bld) [#/Vol] 3.80 10*6/uL Low 4.20-5.70 [facility] Comment on above: Performed By: #### L [id number] #### [facility] ([facility]) [address] [place] [address] WBC (Bld) [#/Vol] 7.72 10*3/uL Normal 4.00-10.60 [facility] Comment on above: Performed By: #### L [id number] #### [facility] ([facility]) [address] [place] [address] CONSULTon 08-26-2024 CONSULT -- Attestation signed by Gemma Wagner MD at 08/26/2024 2:39 PM I personally saw and examined the patient on the same date of service as resident/fellow Dr Baljeet Cleveland. I discussed the findings and therapeutic plan with the resident/fellow Dr Baljeet Cleveland. I agree with the documentation, except for any edits/updates below. Teaching Physician's Revisions: None The patient is a 69-year-old male without significant prior medical history. No history of hypertension or hyperlipidemia or diabetes mellitus. He smoked for few years however he quit in 1994 His reports that he used to be short of breath with exertion such as climbing the stairs up and down a couple times but about 3 to 4 weeks ago he started having significant shortness of breath in addition to left-sided chest tightness, he also has some cough without phlegm and he denies fever or chills. He was COVID-negative. He was seen in urgent care and he was also ruled out for PE. He was discharged on antibiotics and steroids. He had some improvement of his symptoms however he continues to have left-sided chest tightness which comes and goes randomly not related necessarily to exertion, not worse with inspiration, no further cough, it is worse if he lies down and better if he sits up, sometimes it goes up to his left neck and left shoulder, yesterday he had also left jaw pain with it. He reports that both nitro glycerin and morphine helped with this pain. This pain lasts from few minutes to about 10 to 15 minutes. Sometimes associated with feeling nauseous. Also he has been having exertional dyspnea however no orthopnea but he feels the chest tightness worse when he lies down, no paroxysmal nocturnal dyspnea or legs edema or palpitation. He noted that he has been dizzy since all this started and also he noted that his blood pressure is lower than it used to be which was around 130/70. He was admitted to [facility] the day before yesterday. EKG without acute changes. All his troponins were negative. He had again chest CTA which was negative for PE and there was no evidence of pericardial effusion. Both COVID and influenza were negative. He continued to have chest pain while he was in the hospital therefore he was transferred here for further cardiac evaluation. On exam lungs are clear to auscultation, heart regular rate and rhythm, normal S1 and S2, no murmur or friction rub. Extremities no edema or cyanosis or clubbing I think patient's symptoms are concerning for unstable angina particularly the distribution of the pain and its relief with nitroglycerin but on the other hand it has been occurring at rest without any associated EKG changes or elevated enzymes. In any case I think patient's symptoms warrant cardiac catheterization to evaluate for underlying coronary artery disease. However prior to that I would like to order an echo to evaluate cardiac function but also for presence of pericardial effusion because some of his symptoms are suggestive of pericarditis. Of note his chest CTA in [facility] did not show evidence of pericardial effusion In the meantime we will continue current treatment including aspirin, heparin IV infusion, nitroglycerin patch at a lower dose because the higher dose gave him headache. Could not initiate a beta-no due to sinus bradycardia Gemma Wagner MD, [facility] Cardiology Consult Note Reason for Consult: Unstable angina HPI: Srinivas Mae is a 69 y.o. male with no significant past medical history. Patient presented with shortness of breath, chest pain for 1 month. Patient denies history of heart failure, heart attack, hypertension, diabetes mellitus, hyperlipidemia or any heart disease. Patient is a former smoker. He smoked for 10 years and quitted back in 1994. Patient was exertional shortness of breath with intermittent chest pain radiating to left shoulder x 1 month. Patient also endorsed orthopnea. Patient was transferred from the [facility] for further evaluation and treatment of chest pain and unstable angina. In my encounter, patient was comfortably lying on bed saturating well on 2 L O2 through [place]. Currently patient expressing no chest pain, shortness of breath. Vitals remarkable for bradycardia. Labs notable for negative troponi. EKG showed sinus bradycardia with first-degree AV block. Patient was treated with heparin infusion. Cardiology was consulted for management of unstable angina. Cardiology ROS: Negative except as mentioned. Past Medical History He has no past medical history on file. Surgical History He has no past surgical history on file. Social History He reports that he has quit smoking. His smoking use included cigarettes. He has never used smokeless tobacco. No histor (more content not included)... [facility] HEMOGLOBIN A1Con 08-26-2024 Glucose [Mass/Vol] 137 mg/dL Normal Mandeep [facility] Comment on above: Performed By: #### L [id number] ####[facility] (BEAKER)[address] [place] [address] HbA1c (Bld) [Mass fraction] 6.4 % High 4.0-6.0 [facility] Comment on above: Performed By: #### L [id number] ####[facility] (BEAKER)[address] [place] [address] HPon 08-26-2024 HP -- Attestation signed by Gemma Wagner MD at 08/26/2024 2:39 PM I personally saw and examined the patient on the same date of service as resident/fellow Dr Baljeet [place]. I discussed the findings and therapeutic plan with the resident/fellow Dr Baljeet [place]. I agree with the documentation, except for any edits/updates below. Teaching Physician's Revisions: None The patient is a 69-year-old male without significant prior medical history. No history of hypertension or hyperlipidemia or diabetes mellitus. He smoked for few years however he quit in 1994 His reports that he used to be short of breath with exertion such as climbing the stairs up and down a couple times but about 3 to 4 weeks ago he started having significant shortness of breath in addition to left-sided chest tightness, he also has some cough without phlegm and he denies fever or chills. He was COVID-negative. He was seen in urgent care and he was also ruled out for PE. He was discharged on antibiotics and steroids. He had some improvement of his symptoms however he continues to have left-sided chest tightness which comes and goes randomly not related necessarily to exertion, not worse with inspiration, no further cough, it is worse if he lies down and better if he sits up, sometimes it goes up to his left neck and left shoulder, yesterday he had also left jaw pain with it. He reports that both nitro glycerin and morphine helped with this pain. This pain lasts from few minutes to about 10 to 15 minutes. Sometimes associated with feeling nauseous. Also he has been having exertional dyspnea however no orthopnea but he feels the chest tightness worse when he lies down, no paroxysmal nocturnal dyspnea or legs edema or palpitation. He noted that he has been dizzy since all this started and also he noted that his blood pressure is lower than it used to be which was around 130/70. He was admitted to [facility] the day before yesterday. EKG without acute changes. All his troponins were negative. He had again chest CTA which was negative for PE and there was no evidence of pericardial effusion. Both COVID and influenza were negative. He continued to have chest pain while he was in the hospital therefore he was transferred here for further cardiac evaluation. On exam lungs are clear to auscultation, heart regular rate and rhythm, normal S1 and S2, no murmur or friction rub. Extremities no edema or cyanosis or clubbing I think patient's symptoms are concerning for unstable angina particularly the distribution of the pain and its relief with nitroglycerin but on the other hand it has been occurring at rest without any associated EKG changes or elevated enzymes. In any case I think patient's symptoms warrant cardiac catheterization to evaluate for underlying coronary artery disease. However prior to that I would like to order an echo to evaluate cardiac function but also for presence of pericardial effusion because some of his symptoms are suggestive of pericarditis. Of note his chest CTA in [facility] did not show evidence of pericardial effusion In the meantime we will continue current treatment including aspirin, heparin IV infusion, nitroglycerin patch at a lower dose because the higher dose gave him headache. Could not initiate a beta-no due to sinus bradycardia Gemma Wagner MD, [facility] Cardiology Consult Note Reason for Consult: Unstable angina HPI: Srinivas Mae is a 69 y.o. male with no significant past medical history. Patient presented with shortness of breath, chest pain for 1 month. Patient denies history of heart failure, heart attack, hypertension, diabetes mellitus, hyperlipidemia or any heart disease. Patient is a former smoker. He smoked for 10 years and quitted back in 1994. Patient was exertional shortness of breath with intermittent chest pain radiating to left shoulder x 1 month. Patient also endorsed orthopnea. Patient was transferred from the [facility] for further evaluation and treatment of chest pain and unstable angina. In my encounter, patient was comfortably lying on bed saturating well on 2 L O2 through [place]. Currently patient expressing no chest pain, shortness of breath. Vitals remarkable for bradycardia. Labs notable for negative troponi. EKG showed sinus bradycardia with first-degree AV block. Patient was treated with heparin infusion. Cardiology was consulted for management of unstable angina. Cardiology ROS: Negative except as mentioned. Past Medical History He has no past medical history on file. Surgical History He has no past surgical history on file. Social History He reports that he has quit smoking. His smoking use included cigarettes. He has never used smokeless tobacco. No histor (more content not included)... Normal [facility] LIPID PANELon 08-26-2024 CHOL/HDL 3.6 mg/dL Normal [facility] Comment on above: Performed By: #### L [id number] #### [facility] (BEAKER) [address] [place] [address] Cholesterol [Mass/Vol] 157 mg/dL Normal 120-200 [facility] Comment on above: Performed By: #### L [id number] #### [facility] (BEAKER) [address] [place] [address] Magnesium [Mass/Vol] 71 mg/dL Normal 40-149 [facility] Comment on above: Result Comment: TRIG LYCERIDE REFERENCE RANGE: 20 YEARS AND OLDER CARDIOVASCULAR RISK LESS THAN 150 mg/dL LOW RISK 150 TO 199 mg/dL BORDERLINE RISK 200 mg/dL AND GREATER HIGH RISK Performed By: #### L [id number] #### [facility] (BEAKER) [address] [place] [address] Magnesium [Mass/Vol] 99 mg/dL Normal 0-160 [facility] Comment on above: Performed By: #### L [id number] #### [facility] ([facility]) [address] [place] [address] Magnesium [Mass/Vol] 44 mg/dL Normal 23-92 [facility] Comment on above: Performed By: #### L [id number] #### [facility] ([facility]) [address] [place] [address] NON HDL CHOL. (LDL+VLDL) 113 Normal [facility] Comment on above: Performed By: #### L [id number] #### [facility] ([facility]) [address] [place] [address] TOTAL VLDL-C 14 mg/dL Normal 0-40 [facility] Comment on above: Performed By: #### L [id number] #### [facility] ([facility]) [address] [place] [address] SEDIMENTATION RATEon 025 SEDIMENTATION RATE, ERYTHROCYTE 5 mm/hr Normal <20 [facility] Comment on above: Performed By: #### L [id number] #### [facility] ([facility]) [address] [place] [address] TROPONIN Ion 08-26-2024 Troponin I.cardiac [Mass/Vol] 0.00 ng/mL Normal 0.00-0.04 [facility] Comment on above: Performed By: #### L [id number] #### [facility] ([facility]) [address] [place] [address] Troponin I.cardiac [Mass/Vol] 0.00 ng/mL Normal 0.00-0.04 [facility] Comment on above: Performed By: #### L [id number] #### [facility] ([facility]) [address] [place] [address] 30on 08-25-2024 30 The patient is Moderately Stable - Low risk of patient condition declining or worsening The patient's goals for the shift include comfort, rest The clinical goals for the shift include VSS Normal [facility] 30 The patient is Moderately Stable - Low risk of patient condition declining or worsening The patient's goals for the shift include Comfort The clinical goals for the shift include Stable vital signs Normal [facility] APTTon 08-25-2024 ACTIVATED PARTIAL THROMBOPLASTIN TIME IN PPP BY COAGULATION ASSAY >200.0 Critically high 25.0-35.0 [facility] Comment on above: Order Comment: Basel ine aPTT before initiating heparin infusion. Performed By: #### L [id number] ####[facility] ([facility] [place] [address] CBC WITH AUTO DIFFERENTIALon 08-25-2024 Basophils (Bld) [#/Vol] 0.01 10*3/uL Normal 0.00-0.20 [facility] Comment on above: Performed By: #### L [id number] #### [facility] ([facility] [address] [place] [address] Basophils/100 WBC (Bld) 0.1 % Normal 0.0-1.0 [facility] Comment on above: Performed By: #### L [id number] #### [facility] ([facility] [address] [place] [address] Eosinophils (Bld) [#/Vol] 0.04 10*3/uL Normal 0.00-0.50 [facility] Comment on above: Performed By: #### L [id number] #### [facility] (BEAKER) [address] [place] [address] Eosinophils/100 WBC (Bld) 0.5 % Normal 0.0-6.0 [facility] Comment on above: Performed By: #### L [id number] #### [facility] ([facility] [address] [place] [address] Erythrocyte distribution width (RBC) [Ratio] 13.6 % Normal 11.5-15.0 [facility] Comment on above: Performed By: #### L [id number] #### [facility] ([facility] [address] [place] [address] ERYTHROCYTE MEAN CORPUSCULAR HEMOGLOBIN CONCENTRATION (G/DL) BY AUTOMATED 32.3 g/dL Normal 32.0-35.0 [facility] Comment on above: Performed By: #### L [id number] #### [facility] ([facility]) [address] [place] [address] Hematocrit (Bld) [Volume fraction] 36.8 % Low 39.0-55.0 [facility] Comment on above: Performed By: #### L [id number] #### [facility] ([facility]) [address] [place] [address] Hemoglobin (Bld) [Mass/Vol] 11.9 g/dL Low 13.0-17.0 [facility] Comment on above: Performed By: #### L [id number] #### [facility] ([facility]) [address] [place] [address] Immature granulocytes (Bld) [#/Vol] 0.02 10*3/uL Normal 0.00-0.20 [facility] Comment on above: Performed By: #### L [id number] #### [facility] ([facility]) [address] [place] [address] Immature granulocytes/100 WBC (Bld) 0.2 % Normal 0.0-1.0 [facility] Comment on above: Performed By: #### L [id number] #### [facility] (BEAKER) [address] [place] [address] Lymphocytes (Bld) [#/Vol] 0.89 10*3/uL Low 1.20-4.00 [facility] Comment on above: Performed By: #### L [id number] #### [facility] ([facility]AKER) [address] [place] [address] Lymphocytes/100 WBC (Bld) 10.5 % Low 20.0-45.0 [facility] Comment on above: Performed By: #### L [id number] #### [facility] ([facility]AKER) [address] [place] [address] MCH (RBC) [Entitic mass] 29.5 pg Normal 27.0-33.0 [facility] Comment on above: Performed By: #### L [id number] #### [facility] ([facility]) [address] [place] [address] MCV (RBC) [Entitic vol] 91.3 fL Normal 82.0-98.0 [facility] Comment on above: Performed By: #### L [id number] #### [facility] ([facility]) [address] [place] [address] Monocytes (Bld) [#/Vol] 0.69 10*3/uL Normal 0.10-1.00 [facility] Comment on above: Performed By: #### L [id number] #### [facility] ([facility]) [address] [place] [address] Monocytes/100 WBC (Bld) 8.2 % Normal 5.0-12.0 [facility] Comment on above: Performed By: #### L [id number] #### [facility] ([facility]) [address] [place] [address] Neutrophils (Bld) [#/Vol] 6.79 10*3/uL Normal 1.60-7.60 [facility] Comment on above: Performed By: #### L [id number] #### [facility] ([facility]) [address] [place] [address] Neutrophils/100 WBC (Bld) 80.5 % High 40.0-72.0 [facility] Comment on above: Performed By: #### L [id number] #### [facility] ([facility]) [address] [place] [address] NRBC (PER 100 WBCS) BY AUTOMATED COUNT 0.0 % Normal 0 [facility] Comment on above: Performed By: #### L [id number] #### [facility] ([facility]) [address] [place] [address] PLATELETS (10*3/UL) IN BLOOD AUTOMATED COUNT 251 10*3/uL Normal 150-400 [facility] Comment on above: Performed By: #### L [id number] #### [facility] ([facility]) [address] [place] [address] RBC (Bld) [#/Vol] 4.03 10*6/uL Low 4.20-5.70 [facility] Comment on above: Performed By: #### L [id number] #### [facility] ([facility]) [address] [place] [address] WBC (Bld) [#/Vol] 8.44 10*3/uL Normal 4.00-10.60 [facility] Comment on above: Performed By: #### L [id number] #### [facility] ([facility]) [address] [place] [address] CK TOTAL AND CKMBon 08-25-19 CREATINE KINASE (U/L) IN SER/PLAS 49.0 U/L Normal 30.0-223.0 [facility] Comment on above: Performed By: #### L [id number] #### [facility] ([facility]) [address] [place] [address] CREATINE KINASE MB/CREATINE KINASE TOTAL BY CALCULATION 2.2 High 0.0-1.9 [facility] Comment on above: Performed By: #### L [id number] #### [facility] ([facility]) [address] [place] [address] CREATINE KINASE-MB (NG/ML) IN SER/PLAS 1.1 ng/mL Normal 0.0-5.0 [facility] Comment on above: Performed By: #### L [id number] #### [facility] ([facility]) [address] [place] [address] COMPREHENSIVE METABOLIC PANE Christ 08-25-2024 Albumin [Mass/Vol] 3.6 g/dL Normal 3.5-5.7 [facility] Comment on above: Performed By: #### L [id number] ####[facility] ([facility] [place] [address] ALP [Catalytic activity/Vol] 61 U/L Normal 34-104 [facility] Comment on above: Performed By: #### L [id number] ####[facility] ([facility]ER)[address] [place] [address] ALT [Catalytic activity/Vol] 14 U/L Normal 7-52 [facility] Comment on above: Performed By: #### L [id number] ####[facility] (BEAKER)[address] [place] [address] Anion gap [Moles/Vol] 10 mmol/L Normal 7-20 [facility] Comment on above: Performed By: #### L [id number] ####[facility] (BEAKER)[address] [place] [address] AST [Catalytic activity/Vol] 16 U/L Normal 13-39 [facility] Comment on above: Performed By: #### L [id number] ####[facility] (BEAKER)[address] [place] [address] Bilirubin [Mass/Vol] 0.4 mg/dL Normal 0.3-1.0 [facility] Comment on above: Performed By: #### L [id number] ####[facility] (BEAKER)[address] [place] [address] Calcium [Mass/Vol] 8.2 mg/dL Low 8.6-10.3 [facility] Comment on above: Performed By: #### L [id number] ####[facility] (BEAKER)[address] [place] [address] Chloride [Moles/Vol] 104 mmol/L Normal 98-107 [facility] Comment on above: Performed By: #### L [id number] ####[facility] ([facility])[address] [place] [address] CO2 [Moles/Vol] 27 mmol/L Normal 21-31 [facility] Comment on above: Performed By: #### L [id number] ####[facility] ([facility])[address] [place] [address] Creatinine [Mass/Vol] 0.85 mg/dL Normal 0.70-1.30 [facility] Comment on above: Performed By: #### L [id number] ####[facility] ([facility])[address] [place] [address] GLOMERULAR FILTRATION RATE ML/MIN/1.73 SQ M.PREDICTED 93.5 mL/min/1.73m*2 Normal >60.0 [facility] Comment on above: Result Comment: The [facility]???s estimated glomerular filtration rate (eGFR) will no longer include consideration of race in its calculation. The National Kidney Foundation???s eGFR Task Force developed new recommendations for the estimation of the glomerular filtration rate in the [place] They recommend immediate implementation of the new equation refit without the race variable in all laboratories because the calculation does not include race. In addition to not including race in the calculation and reporting, it included diversity in its development, and has acceptable performance characteristics and potential consequences that do not disproportionately affect any one group of individuals. Performed By: #### L [id number] ####[facility] ([facility])[address] [place] [address] Glucose [Mass/Vol] 116 mg/dL High 70-100 [facility] Comment on above: Performed By: #### L [id number] ####[facility] ([facility])[address] [place] [address] Potassium [Moles/Vol] 4.1 mmol/L Normal 3.5-5.1 [facility] Comment on above: Performed By: #### L [id number] ####[facility] ([facility])[address] [place] [address] Protein [Mass/Vol] 6.1 g/dL Normal 6.0-8.3 [facility] Comment on above: Performed By: #### L [id number] ####[facility] ([facility])[address] [place] [address] Sodium [Moles/Vol] 137 mmol/L Normal 136-145 [facility] Comment on above: Performed By: #### L [id number] ####[facility] ([facility])[address] [place] [address] Urea nitrogen [Mass/Vol] 16 mg/dL Normal 7-25 [facility] Comment on above: Performed By: #### L [id number] ####[facility] ([facility] [place] [address] UREA NITROGEN/CREATININE (MASS RATIO) IN SER/PLAS 18.8 Normal [facility] Comment on above: Performed By: #### L [id number] ####[facility] ([facility])[address] [place] [address] MAGNESIUMon 08-25-2024 Magnesium [Mass/Vol] 2.0 mg/dL Normal 1.9-2.7 [facility] Comment on above: Performed By: #### L [id number] ####[facility] (BEAKER)[address] [place] [address] TROPONIN Ion 08-25-2024 Troponin I.cardiac [Mass/Vol] 0.00 ng/mL Normal 0.00-0.04 [facility] Comment on above: Performed By: #### L [id number] #### [facility] ([facility]) [address] [place] [address] X-ray reportOrdered By: Carlos Reilly on 07-26-2024 Study report [facility] [place] [address] XRay Report Signed Patient: Srinivas Mae MR#: [id number] : 1955 Acct:[id number] Age/Sex: 69 / M ADM Date: 5 Loc: XDUCLY Room: Type: [facility] Attending Dr: Bernadette Mercado POLISHING MACHINE OPERATOR Copies to: Bernadette Mercado APRN~ Ordering Provider: [...] Aram Reilly M.D.07/26/2024 11:27 AM Dictation Location: RADIO-PC-23 Transcribed By: [facility] 07/26/24 1127 Dictated By: Aram Reilly DO 07/26/24 1126 Signed By: 07/26/24 1127 [facility] XR chest 2V*on 07-26-2024 XR chest 2V* [facility] [place] [address] [place] [address] XRay Report Signed Patient: Srinivas Mae MR#: [id number] : 1955 Acct:[id number] Age/Sex: 69 / M ADM Date: 07/26/24 Loc: XDUCLY Room: Type: [facility] Attending Dr: Bernadette Mercado POLISHING MACHINE OPERATOR Copies to: Bernadette Mercado APRN Ordering Provider: [...] Aram Reilly M.D.07/26/2024 11:27 AM Dictation Location: RADIO-PC-23 Transcribed By: [facility] 07/26/24 1127 Dictated By: Aram Reilly DO 07/26/24 1126 Signed By: 07/26/24 1127 Normal [facility] XR CHEST 2 Von 05-05-2022 XR CHEST 2 V EXAM: XR CHEST 2 V HISTORY: . Cough . COMPARISON: 10/13/2018 TECHNIQUE: Frontal and lateral chest FINDINGS: Heart and vascularity are unremarkable. Lungs are expanded and free of focal infiltrates. Spondylosis of the spine is noted. IMPRESSION: No acute heart or lung disease identified. Electronically authenticated by: ANALILIA MARTINEZ Date: 2022-05-05 18:[address] [facility] XR SINUSES 3 VIEWS OR GREATE [...] by: ANALILIA TORRES Date: 2022-05-05 19:[address] [facility] CT HEAD WO CONon 01-13-2022 CT [...] ETHEL TOLEDO Date: 2022-01-13 14:[address] [facility] Covid-19 PCR (CVDTB)on 06-05 SARS-CoV-2 (COVID-19) RNA RADHA+probe Ql (Unsp spec) Not detected Normal NOT DETECTED [facility] Comment on above: Result Comment: This test is not yet approved or cleared by the [place] FDA. When there are no FDA-approved or cleared tests available, and other criteria are met, FDA can make tests available under an emergency access mechanism called an Emergency Use Authorization (EUA). The EUA for this test is supported by the [place] of Health and Human Service's (HHS's) declaration [...] consistent with SARS-CoV-2. Performed By: #### C [facility] #### [facility] [address] [place] [address] Dr. Maulik Gavin Albumin [Mass/volume] in Ser um or Plasmaon 12-29-2020 Albumin [Mass/Vol] 3.9 g/dL 3.2-5.5 [facility] Basophils Auto (Bld) [#/Vol] on 12-29-2020 Basophils (Bld) [#/Vol] 0.0 10*3/uL 0.0-0.2 [facility] Basophils/100 WBC Auto (Bld) on 12-29-2020 Basophils/100 WBC (Bld) 0.4 % [facility] Blood hemoglobin measurement (mass/volume)on 12-29-2020 Hemoglobin (Bld) [Mass/Vol] 12.7 g/dL 13.0-17.0 [facility] Blood leukocytes automated c ount (number/volume)on 12-29-2020 WBC (Bld) [#/Vol] 7.3 10*3/uL 4.5-11.0 [facility] Creatinine and Glomerular fi ltration rate.predicted panel (S/P/Bld)on 12-29-2020 Creatinine [Mass/Vol] 0.77 mg/dL 0.64-1.27 [facility] Eosinophils Auto (Bld) [#/Vo l]on 12-29-2020 Eosinophils (Bld) [#/Vol] 0.1 10*3/uL 0.0-0.45 [facility] Eosinophils/100 WBC Auto (Bl d)on 12-29-2020 Eosinophils/100 WBC (Bld) 1.9 % [facility] Erythrocyte distribution wid th Auto (RBC) [Ratio]on 12-29-2020 Erythrocyte distribution width (RBC) [Ratio] 13.6 % 12.0-14.8 [facility] Estimated glomerular filtrat ion rate (GFR) non- Americanon 12-29-2020 GFR/1.73 sq M.predicted among non-blacks MDRD (S/P/Bld) [Vol rate/Area] > 60 mL/Min [facility] [facility] Globulin Calc (S) [Mass/Vol] on 12-29-2020 Globulin (S) [Mass/Vol] 2.3 g/dL [facility] Hematocrit Auto (Bld) [Volum e fraction]on 12-29-2020 Hematocrit (Bld) [Volume fraction] 37.6 % 38.8-50.0 [facility] Laboratory - Hematology and Cell countson 12-29-2020 Nucleated RBC/100 WBC (Bld) [Ratio] 0.1 % 0-0.5 [facility] Lymphocytes Auto (Bld) [#/Vo l]on 12-29-2020 Lymphocytes (Bld) [#/Vol] 1.4 10*3/uL 1.00-4.8 [facility] Lymphocytes/100 WBC Auto (Bl d)on 12-29-2020 Lymphocytes/100 WBC (Bld) 19.6 % [facility] MCH Auto (RBC) [Entitic mass ]on 12-29-2020 MCH (RBC) [Entitic mass] 31.0 pg 27.5-35.2 [facility] MCHC Auto (RBC) [Mass/Vol]on 12-29-2020 MCHC (RBC) [Mass/Vol] 33.8 g/dL 32.5-35.6 [facility] MCV Auto (RBC) [Entitic vol] on 12-29-2020 MCV (RBC) [Entitic vol] 91.8 fL 83.5-101 [facility] Monocytes Auto (Bld) [#/Vol] on 12-29-2020 Monocytes (Bld) [#/Vol] 0.7 10*3/uL 0.0-0.8 [facility] Monocytes/100 WBC Auto (Bld) on 12-29-2020 Monocytes/100 WBC (Bld) 9.0 % [facility] Neutrophils Auto (Bld) [#/Vo l]on 12-29-2020 Neutrophils (Bld) [#/Vol] 5.1 10*3/uL 1.8-7.7 [facility] Neutrophils/100 WBC Auto (Bl d)on 12-29-2020 Neutrophils/100 WBC (Bld) 69.1 % [facility] No Panel Informationon 12-29 Estimated GFR () > 60 mL/Min [facility] Comment on above: GFR estimated refere nce range: According to KDOQI guidelines, <60 ml/min/1.73m2 is sufficient to diagnose a patient with chronic kidney disease. Pharmacy Creatinine Clearance (Chem N/A [facility] Platelet mean volume Auto (B ld) [Entitic vol]on 12-29-2020 Platelet mean volume (Bld) [Entitic vol] 8.1 fL 6.6-10.1 [facility] Platelets Auto (Bld) [#/Vol] on 12-29-2020 Platelets (Bld) [#/Vol] 276 10*3/uL 150-450 [facility] Protein [Mass/volume] in Ser um or Plasmaon 12-29-2020 Protein [Mass/Vol] 6.2 g/dL 6.1-7.9 [facility] RBC Auto (Bld) [#/Vol]on RBC (Bld) [#/Vol] 4.10 10*6/uL 3.90-5.60 [facility] Serum or plasma alanine rojo otransferase measurement without P-5'-P (enzymatic activion 12-29-2020 ALT No additional P-5'-P [Catalytic activity/Vol] 21 U/L 10-60 [facility] Serum or plasma albumin/glob ulin mass ratioon 12-29-2020 Albumin/Globulin [Mass ratio] 1.7 {ratio} [facility] Serum or plasma alkaline lucinda sphatase measurement (enzymatic activity/volume)on 12-29-2020 ALP [Catalytic activity/Vol] 58 U/L 32-92 [facility] Serum or plasma aspartate am inotransferase measurement (enzymatic activity/volume)on 12-29-2020 AST [Catalytic activity/Vol] 19 U/L 10-42 [facility] Serum or plasma calcium ayesha urement (mass/volume)on 12-29-2020 Calcium [Mass/Vol] 9.3 mg/dL 8.2-10.2 [facility] Serum or plasma chloride slime surement (moles/volume)on 12-29-2020 Chloride [Moles/Vol] 103 mmol/L 95-114 [facility] Serum or plasma glucose ayesha urement (mass/volume)on 12-29-2020 Glucose [Mass/Vol] 85 mg/dL 70-100 [facility] Comment on above: ADA recommended refe rence rangeRandom Glucose Reference Range is dependent on time and content of last meal. Glucose of more than 200 mg/dL in a nonstressed, ambulatory subject supports the diagnosis of Diabetes Mellitus. Serum or plasma potassium me asurement (moles/volume)on 12-29-2020 Potassium [Moles/Vol] 4.0 mmol/L 3.5-5.1 [facility] Serum or plasma sodium measu rement (moles/volume)on 12-29-2020 Sodium [Moles/Vol] 140 mmol/L 136-146 [facility] Serum or plasma total biliru bin measurement (mass/volume)on 12-29-2020 Bilirubin [Mass/Vol] 0.7 mg/dL 0.3-1.2 [facility] Serum or plasma total carbon dioxide measurement (moles/volume)on 12-29-2020 CO2 [Moles/Vol] 26.2 mmol/L 22.0-30.0 [facility] Serum or plasma urea nitroge n measurement (mass/volume)on 12-29-2020 Urea nitrogen [Mass/Vol] 10 mg/dL 9-23 [facility] CNOVon 05-01-2018 CNOV Office Visit (PULMMN ) BEAR MAE ([id number]) 1955 M Date Time Provider Department 05/01/18 1:00 PM AWAIS POTTS During your visit today, we recorded the following information about you: Temperature Pulse Blood pressure 98.2 degrees 80/minute 132/75 Awais Mancera MD 05/01/2018 2:00 PM Signed Sarcoidosis and Interstitial Lung Disease Program Respiratory Casey FOLLOW UP NOTE Problem List: Problem List Noted Noted By Resolved Resolved By Beryllium sensitization 10/31/2017 Jc Collins No Initial HPI(09/19/17): 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 Describes SOB with heavy [...] capsule by mouth once daily. No current facility-administered medications for this visit. No family history [...] with the results. Referring Provider: AWAIS POTTS [[id number]] Allergies As of Date: 05/01/2018 (No Known Allergies) Date Reviewed: 05/01/2018 Reviewed by: Awais Mancera - Fully Assessed Reason for Visit: Recheck [92] Primary Visit Diagnosis:SOB (shortness of breath) [R06.02] Other Visit Diagnoses:Need for vaccination [Z23] ILD (interstitial lung disease) (HCC) [J84.9] Order(s):ECG COMPLETE W INTERPRETATION [ECG01] Order #: [id number] FUTURE ECHO [259668] Order #: [id number]: 1 FUTURE ADMIN OF INFLUENZA VACCINE [L0864EQE] Order #: [id number]: 1 INFLUENZA VACCINE QUADRIVALENT AGE 3 YRS PLUS + IM [05645HKM] Order #: [id number] Prescriptions as of 05/01/2018 Sig: DEXLANSOPRAZOLE 60 MG CAPSULE* Take 1 capsule by mouth once * Problem List As Of Date 05/01/2018 Noted Resolved Encounter for screening for respiratory disorde*INVALID FOR* ILD (interstitial lung disease) ([facility]) [J84.9] INVALID FOR* Priority: A More... Other instructions from your clinician: - Flu shot - Schedule echocardiogram and EKG - I will contact you with the results - We will decide on next steps (e.g. Stress Test) after those results Encounter Status:Closed by AWAIS POTTS MD on 05/01/[address] [facility] [address] CHEST WO IVCONon 05-01-[address] CHEST WO IVCON * * *Final Report* * * DATE OF EXAM: May 01 2018 11:06AM [facility] 0541 - CT CHEST WO IVCON / [...] suspicious pulmonary nodules. 3. No thoracic lymphadenopathy. Nurse Special: DIDI Transcribe Date/Time: May 01 2018 1:21P Dictated by : AISHA REIS MD This examination was interpreted and the report reviewed and electronically signed by: AISHA REIS MD on May 01 2018 2:14PM EST [id number] [facility] ECG COMPLETE W INTERPRETATIO Non 05-01-2018 ECG COMPLETE W INTERPRETATION NAME : TUBEAR KOTHARI PID : [id number] : 1955 Gender : Male Race : ORD : [id number] Procedure Date : May 01 2018 14:23:56 Edit Date : May 02 2018 11:08:40 Diagnosis:SINUS BRADYCARDIA NONSPECIFIC T WAVE ABNORMALITY ABNORMAL ECG Confirmed by MAURA PRABHAKAR M.D. ([id number]) on 05/02/2018 11:08:32 AM Ventricular Rate : 57 BPM Atrial Rate : 57 BPM P-R Interval : 198 ms QRS Duration : 114 ms Q-T Interval : 426 ms QTC Calculation(Bezet) : 414 ms P [place] : 56 degrees R [place] : -17 degrees T [place] : 8 degrees Test Reason : Location : 119 : A17 Overread By : MAURA PRABHAKAR M.D. Edited By : MAURA PRABHAKAR M.D. 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 Describes SOB with heavy [...] capsule by mouth once daily. No current facility-administered medications for this visit. No family history [...] MD May 01, 2018 1:44 PM [facility] Protein mass conc HNO ID: [id number] Author: VERONICA Elizabeth (Ct) Service: Radiology Author Type: Clinical Aged Or Disabled Care Worker Type: Progress Notes Filed: 05/01/2018 11:02 AM [...] Elizabeth May 01, 2018 10:54 AM [facility] CNCOon 02-13-2018 CNCO Letter Text . February 13, 2018 Mr. Bear Mae [address] [facility] [address] RE: [facility]# [id number] Dear Mr. Mae, I am writing this letter to update you on your evaluation at the [facility] regarding your history of beryllium exposure. During [...] the chest. Thank you for choosing the [facility] for your care. If you have any questions, if I can be of any further assistance or if you would like to schedule a follow-up appointment or bronchoscopy, please do not hesitate to contact my office. This letter was sent to you per your request. Please feel free to share with your physicians or other healthcare providers. Sincerely, Awais Mancera MD [facility] AFB Cult and Stainon 018 AFB Cult and Stain Sp. Request/Comment: - RML Smear Result - No acid fast bacilli seen by fluorochrome stain Culture Result - No Acid Fast Bacilli isolated after 42 days [facility] Comment on above: Performed By: #### A FC ####[facility] [address] AveClevelBrittany [place] [phone] BAL Routineon 11-15-2017 BAL COMMENT SEE COMMENT [facility] Comment on above: Result Comment: Test Not Indicated Performed By: #### TONIE GUIDO ####[facility] [phone] BAL REVIEW SEE COMMENT [facility] Comment on above: Result Comment: Test Not Indicated Performed By: #### TONIE GUIDO ####[facility] [place] [phone] Clarity Nom (U) Slightly turbid [facility] Comment on above: Performed By: #### TONIE GUIDO ####[facility] [address] AveClevelandJuan [place] [phone] Color Nom (U) Colorless [facility] Comment on above: Performed By: #### TONIE GUIDO ####[facility] [address] AveClevelandRe[place], [place] [phone] Macro% 73 % [facility] Comment on above: Performed By: #### TONIE GUIDO ####[facility] [address] AveClevelandJuan [place] [phone] Monocytes/100 WBC (Bld) 5 % [facility] Comment on above: Performed By: #### TONIE GUIDO ####[facility] [address] AveClevelandRevere, [place] [phone] Neutrophils/100 WBC (Bld) 1 % Normal 0-1 [facility] Comment on above: Performed By: #### TONIE GUIDO ####[facility] [address] AveCPleasant [place], [place] [phone] Nucleated Cells, BAL 165 /uL [facility] Comment on above: Performed By: #### TONIE GUIDO ####[facility]CPle[address] [place], [place] [phone] RBC #/vol (Bld) 0.91994 10*6/uL [facility] Comment on above: Performed By: #### TONIE GUIDO ####[place] [address] AveCPle[place], [place] [phone] Slide Number BAL [id number] Normal [facility] Comment on above: Performed By: #### TONIE GUIDO ####[facility], [place] [phone] Suprntnt Clarity Clear Normal [facility] Comment on above: Performed By: #### TONIE GUIDO ####[facility] [address] AveCPleasant [place], [place] [phone] Suprntnt Color Colorless [facility] Comment on above: Performed By: #### TONIE GUIDO ####[facility], [place] [phone] CNPTOUTREACHotosha 11-15-2017 CNPTOUTREACH Patient Outreach ([id number]) BEAR MAE ([id number]) 1955 M Date Time Provider Department 11/15/17 AWAIS POTTS [id number] During your visit today, we recorded the following information about you: Allergies As of Date: 11/15/2017 (No Known Allergies) Date Reviewed: 11/15/2017 Reviewed by: Clari Dawson (Rn), RN - Fully Assessed Primary Visit Diagnosis:Beryllium exposure [Z77.018] Order(s):AFB CULT + STAIN [SQAFC] Order #: [id number] BAL ROUTINE BFL [SQBALAVI] Order #: [id number] FUNGAL CULT + SMEAR [SQFCULSM] Order #: [id number] CELL COUNT + DIFF BFL [SQCCBF] Order #: [id number] LPT TO BERYLLIUM BAL [SQBALBE] Order #: [id number] LPT TO BERYLLIUM BLD [SQBLDBE] Order #: [id number] SURGICAL PATHOLOGY [3346436] Order #: [id number] Prescriptions as of 11/15/2017 Sig: DEXLANSOPRAZOLE 60 MG CAPSULE* Take 1 capsule by mouth once * Problem List As Of Date 11/15/2017 Noted Resolved Encounter for screening for respiratory disorde*INVALID FOR* Encounter Status:Closed by AWAIS POTTS MD on 11/15/17 [facility] Fungal Cult / Smearon 2017 Fungal Cult / Smear Sp. Request/Comment: - RML Smear Result - No fungus seen. Culture Result - No Fungus isolated after 34 days [facility] Comment on above: Performed By: #### F CULSM ####[facility] [address] [place], [place] [phone] HISTORY PHYSICALon 8 HISTORY PHYSICAL HNO ID: [id number] Author: Jose Torres (Benjy) Service: Critical Care [...] hospital problems. * Medication and Non-Pharmacologic VTE Prophylaxis/Anticoagul ants VTE Prophylaxis: VTE prophylaxis appropriate Provisional Diagnosis/Treatment Plan: Bronchoscopy with BAL and Bx. SEDATION GOAL: Moderate SIGNATURE: Jose Torres MD PATIENT NAME: Bear Mae DATE: November 15, 2017 TIME: 8:25 AM PAGER: [phone] Normal [facility] 11-15-2017 HOSP Patient Update ([id number]) TUBEAR Hill ([id number]) 1955 M Date Time Provider Department 11/15/17 AWAIS POTTS [id number] During your visit today, we recorded the following information about you: Allergies As of Date: 11/15/2017 (No Known Allergies) Date Reviewed: 11/15/2017 Reviewed by: Clari Dawson (Rn), RN - Fully Assessed Primary Visit Diagnosis:Beryllium exposure [Z77.018] Order(s):SURGICAL PATHOLOGY [6230790] Order #: [id number] Prescriptions as of 11/15/2017 Sig: DEXLANSOPRAZOLE 60 MG CAPSULE* Take 1 capsule by mouth once * Problem List As Of Date 11/15/2017 Noted Resolved Encounter for screening for respiratory disorde*INVALID FOR* Encounter Status:Closed by AWAIS POTTS MD on 11/15/17 [facility] LPT to BerylliumBRYANon 11-15 Alveolar Macro % 73 % Normal [facility] Comment on above: Performed By: ###TONIE CORONEL ####[facility], [place] [phone] Beryllium 1.0 uM D3 0.[address] [facility] Comment on above: Performed By: ###TONIE CORONEL ####[facility] [address] [place], [place] [phone] Beryllium 1.0 uM D5 1.[address] [facility] Comment on above: Performed By: #### TONIE GUIDO ####[facility] [address] [place], [place] [phone] Beryllium 10 uM D3 0.6 SI [facility] Comment on above: Performed By: ###TONIE CORONEL ####[facility] [address] AveCMichael V[place] [phone] Beryllium 10 uM D5 0.1 SI Normal [facility] Comment on above: Performed By: #### TONIE GUIDO ####[facility] [address] AveCMichael [place] [phone] Beryllium 100 uM D3 0.9 SI Normal [facility] Comment on above: Performed By: #### TONIE GUIDO ####[facility] [place] [phone] Beryllium 100 uM D5 0.1 SI Normal [facility] Comment on above: Performed By: #### TONIE GUIDO ####[place] [address] [phone] Rylie Albicans 0.6 SI Low >2.0 [facility] Comment on above: Performed By: #### TONIE GUIDO ####[facility] [place] [phone] Cell Control 447 cpm [facility] Comment on above: Performed By: #### TONIE GUIDO ####[facility] [place] [phone] Interpretation Uninterpretable response to Beryllium. Lymphocyte response to PHA and/or Rylie is decreased. Lymphocyte response to Beryllium could be masked. Suggest repeat in 3 to 6 months. [facility] Comment on above: Performed By: #### TONIE GUIDO ####[facility] [place] [phone] Lymphocytes/100 WBC (Bld) 21 % High 6-8 [facility] Comment on above: Performed By: #### TONIE GUIDO ####[facility] [place] [phone] PHA Stim Index 14.9 SI Normal >10.0 [facility] Comment on above: Performed By: #### TONIE GUIDO ####[place] [address] [place] [phone] Ph[address]agglutin [address] [facility] Comment on above: Performed By: #### TONIE GUIDO ####[place] [address] [place] [phone] Plate ID Number [id number] [facility] Comment on above: Performed By: #### TONIE GUIDO ####[place] [address] [place] [phone] Viability % 96 % [facility] Comment on above: Performed By: #### TONIE GUIDO ####[place] [phone] LPT to Beryllium,Mariana 11-15 Beryllium 1.0 uM D5 0.9 SI Normal <3.0 [facility] Comment on above: Performed By: #### B LDBE ####[place] [address] [place] [phone] Beryllium 1.0 uM D6 0.9 SI Normal <3.0 [facility] Comment on above: Performed By: #### B LDBE ####[place] [address] [place] [phone] Beryllium 10 uM D5 0.5 SI Normal <3.0 [facility] Comment on above: Performed By: #### B LDBE ####[place] [address] [place] [phone] Beryllium 10 uM D6 0.3 SI Normal <3.0 [facility] Comment on above: Performed By: #### B LDBE ####[place] [address] [place] [phone] Beryllium 100 uM D5 0.3 SI Normal <3.0 [facility] Comment on above: Performed By: #### B LDBE ####[place] [address] [place] [phone] Beryllium 100 uM D6 0.1 SI Normal <3.0 [facility] Comment on above: Performed By: #### B LDBE ####[place] [phone] Rylie Albicans 2.4 SI Normal >2.0 [facility] Comment on above: Performed By: #### B LDBE ####[place] [phone] Cell Control 835 cpm [facility] Comment on above: Performed By: #### B LDBE ####[place] [phone] Interpretation Normal response to Beryllium. All six Beryllium indices are less than 3.0. [facility] Comment on above: Performed By: #### B LDBE ####[place] [phone] PHA Stim Index 152 SI Normal >50.0 [facility] Comment on above: Performed By: #### B LDBE ####[place] [phone] Phytohemagglutin 230842 cpm Normal [facility] Comment on above: Performed By: #### B LDBE ####[place] [address] [place] [phone] Plate ID Number [id number] [facility] Comment on above: Performed By: #### B LDBE ####[place] [phone] Reviewed Reviewed by Analilia Yang M.D. ([id number]) [facility] Comment on above: Performed By: #### Hilda LDBE ####[facility] [address] [place], [place] [phone] Performed By: #### TONIE GUIDO ####[facility] [place], [place] [phone] PT EDon 11-15-2017 PT ED HNO ID: [id number] Author: Ami Arnett (Rn), RN Service: (none) [...] By: Ami Arnett RN In Department: ADMITTING [facility] SURGICAL PATHOLOGYon 018 SURGICAL PATHOLOGY Specimen originated from [facility] Specimen #: [id number] Submitting Physician: AWAIS MANCERA MD FINAL DIAGNOSIS Lung, right lower lobe, transbronchial biopsy - Mild chronic inflammation (See comment). SHARON/woodrow 11/16/2017 COMMENT This biopsy consists of five [...] are non-specific. Driss Paiz M.D. (Electronic Signature) _ SPECIMEN SUBMITTED A: RIGHT LOWER LOBE LUNG BIOPSY CLINICAL DATA BERYLLIUM EXPOSURE GROSS DESCRIPTION A. Received in formalin are multiple pieces of de anda-red, soft tissue aggregating to 0.9 x 0.2 x 0.1 cm. Totally submitted in one cassette. Gross examination performed at [facility], [address] [place] [address] NMP 11/15/2017 4:29:25 PM Date of Report: 11/16/2017 Date of Procedure: 11/15/2017 Date of Receipt: 11/15/2017 Submitted by: AWAIS MANCERA MD Additional Physician(s): JC COLLINS ([id number]) Location: PULMONARY MAIN Diagnostic interpretation performed at [place] [address]. [facility] PT EDon 11-09-2017 PT ED HNO ID: [id number] Author: Maryam Bethea (Rn), RN Service: Nursing Author Type: Registered Nurse Type: Patient Education Filed: 11/09/2017 4:16 PM Note Text: AMBULATORY PATIENT EDUCATION TOPIC: Bronchoscopy READINESS TO LEARN COGNITIVE ABILITY: Alert and oriented MOTIVATION TO LEARN: Eager FAMILY SUPPORT: None - Unavailable/disinteres collin INSTRUCTION PROVIDED TO: Patient PATIENT LEARNS BEST [...] Spent 5 minutes. Electronically Signed By: Maryam Bethea, RN In Department: ADMITTING [facility] HOSPon 11-01-2017 HOSP Patient:Bear Mae MRN: Height:5' 7 (1.702 m) Weight:170 lb (77.111 kg) Outpatient Medications as of 5/15/18: Dexlansoprazole (DEXILANT) 60 mg CpDM Admission/Clinic Administered Medications as of 11/15/17: albuterol 2.5 mg /3 mL (0.083 %) 2.5 mg (PROVENTIL) Problem List: Encounter for screening for respiratory disorder [Z13.83] Allergies: No Known Allergies Date Verified:11/15/17 Lab Values No results within the last 30 days for the following basenames: K,HCT Progress Notes (HOSP [facility] LAB H23): Lucrecia Serrano 11/01/2017 3:22 PM Signed Called patient at [phone] (home) and reached voicemail. Left message for patient to call office to schedule/reschedule appointment. Lucrecia Serrano 11/04/2017 3:39 PM Signed Called patient again, at [phone] (home) and reached voicemail. Left message for [...] need cardiac clearance? No Is he/she on anticoagulants/anti-pl t therapy? No Nursing Considerations: (ie: retirement, best contact, diabetic etc) none Percepta Testing Eligible: No Diagnosis: Beryllium exposure/sensitization Referred by: Dr. Collins Reviewed by: Dr. Michelle Mancera MD October 31, 2017 2:49 PM Previous Version [facility] CNOVon 10-31-2017 CNOV Office Visit (PULMMN ) BEAR MAE ([id number]) 1955 M Date Time Provider Department 10/31/17 [...] by JC COLLINS MD on 11/05/17 Normal [facility] 10-31-2017 [facility] Patient Update (PULMMN) BEAR MAE ([id number]) 1955 M Date Time Provider Department 10/31/17 [...] anesthesia?No- Room 3 Needs Labs: No, Dr Alvarado okay with no labs Needs EKG: No Needs CT prior: No Does the pt need cardiac clearance? No Is he/she on anticoagulants/anti-pl t therapy? No Nursing Considerations: (ie: retirement, best contact, diabetic etc) none Percepta Testing Eligible: No Diagnosis: Beryllium exposure/sensitization Referred by: Dr. Collins Reviewed by: Dr. Michelle Mancera MD October 31, 2017 2:49 PM Allergies As of Date: 10/31/2017 (No Known Allergies) Date Reviewed: 10/31/2017 Reviewed by: Jc Collins - Fully Assessed Reason for Visit: Bronchoscopy Scheduling [90193] Cmt: Initial bronchoscopy note Reason For Visit History Recorded Prescriptions as of 10/31/2017 Sig: DEXLANSOPRAZOLE 60 MG CAPSULE* Take 1 capsule by mouth once * Problem List As Of Date 10/31/2017 Noted Resolved Encounter for screening for respiratory disorde*INVALID FOR* Follow-up and Disposition History Recorded Encounter Status:Closed by AWAIS POTTS MD on 10/31/17 [facility] PROGRESSon 10-31-2017 Protein mass conc HNO ID: [id number] Author: Awais Mancera Service: (none) Author Type: [...] need cardiac clearance? No Is he/she on anticoagulants/anti-pl t therapy? No Nursing Considerations: (ie: retirement, best contact, diabetic etc) none [employer] Testing Eligible: No Diagnosis: Beryllium exposure/sensitization Referred by: Dr. Collins Reviewed by: Dr. Michelle Mancera MD October 31, 2017 2:49 PM [facility] Protein mass conc HNO ID: [id number] Author: Jc Collins Service: (none) Author Type: [...] for respiratory disorder. Jc Collins MD [facility] Vital Signs Date Time Vital Sign Value Performing Clinician Facility 07-26-2024 10:47-0500 Body height 170.18 cm [facility] 07-26-2024 10:47-0500 Body mass index (BMI) [Ratio] 27.7 kg/m2 [facility] 07-26-2024 10:47-0500 Body temperature 98.7 [degF] [facility] 07-26-2024 10:47-0500 Body weight 80.39 kg [facility] 07-26-2024 10:47-0500 Diastolic blood pressure 70 mm[Hg] [facility] 07-26-2024 10:47-0500 Heart rate 83 /min [facility] 07-26-2024 10:47-0500 Respiratory rate 17 /min [facility] 07-26-2024 10:47-0500 SaO2% (BldA) [Mass fraction] 98 % [facility] 07-26-2024 10:47-0500 Systolic blood pressure 118 mm[Hg] [facility] 10-24-2023 10:13-0400 Body height 170.18 cm [facility] 10-24-2023 10:13-0400 Body mass index (BMI) [Ratio] 27.3 kg/m2 [facility] 10-24-2023 10:13-0400 Body temperature 98.3 [degF] [facility] 10-24-2023 10:13-0400 Body weight 79.37 kg [facility] 10-24-2023 10:13-0400 Heart rate 68 /min [facility] 10-24-2023 10:13-0400 Respiratory rate 18 /min [facility] 10-24-2023 10:13-0400 SaO2% (BldA) [Mass fraction] 99 % [facility] 04-09-2021 11:00-0400 Body height 170.18 cm Agustin Stoll Other [facility] Other 04-09-2021 11:00-0400 Body mass index (BMI) [Ratio] 25.84 kg/m2 Agustin Olexa Other [facility] Other 04-09-2021 11:00-0400 Body weight 74.84 kg Agustin Olexa Other [employer] [facility] Other Encounters Encounter Date Encounter Type Care Provider Facility Start: 09-07-2024 End: 09-07-2024 ambulatory [facility] Start: 09-05-2024 ambulatory DO CHUCK ODONNELL Faci lity:[facility] Start: 09-03-2024 End: 09-03-2024 ambulatory CHUCK ODONNELL Facility:[facility] ruth Start: 08-28-2024 End: 08-28-2024 Evaluation and management of inpatient DEONDRE YEARMary [facility] Start: 08-27-2024 Evaluation and management of inpatient [facility] Start: 08-26-2024 Evaluation and management of inpatient [facility] Start: 08-25-2024 End: 08-28-2024 Evaluation and management of inpatient [facility] Start: 07-26-2024 End: 07-26-2024 ambulatory NON STAFF [facility] Work Phone: Start: 07-26-2024 End: 07-26-2024 Patient encounter procedure [facility] Work Phone: Start: 12-13-2023 End: 12-13-2023 ambulatory ROSE KABAJUANCHO Not Available Start: 10-24-2023 End: 10-24-2023 ambulatory [facility] Work Phone: Start: 10-24-2023 End: 10-24-2023 Patient encounter procedure [facility] Work Phone: Start: 06-09-2023 End: 06-09-2023 ambulatory Agustin Stoll Other [facility] Other Start: 06-09-2023 Telephone encounter Agustin Stoll [facility] Start: 05-05-2022 End: 05-06-[address] CHUCK ODONNELL Facility:[facility] Start: 01-13-2022 End: 01-14-[address] CHUCK ODONNELL Facility:[facility] Start: 07-02-2021 End: 07-02-[address] CHUCK ODONNELL Facility:[facility] Start: 04-09-2021 Office outpatient visit 15 minutes Agustin Stoll [facility] Start: 12-29-2020 End: 12-29-2020 Patient encounter procedure Chuck Odonnell Work Phone: -Pre-Surgical Testing Start: 12-29-2020 End: 12-29-2020 Patient encounter procedure Chuck Odonnell Work Phone: -[facility] [place] [facility] Start: 05-01-2018 End: 10-04-2018 [facility] Start: 11-15-2017 End: 11-15-2017 Patient encounter procedure AWAIS MANCERA [facility] Start: 10-31-2017 End: 11-07-2017 Patient encounter procedure JC COLLINS [facility] Start: 10-31-2017 End: 01-03-2018 Patient encounter procedure RAROSANGELA COLLINS [facility] Procedures Date Procedure Procedure Detail Performing Clinician Start: 07-26-2024 Plain chest X-ray Start: 12-29-2020 Plain X-ray of right shoulder [facility] Work Phone: Plan of Treatment Date Care Activity Detail Author XR Chest 2 Views [facility] Immunizations Immunization Date Immunization Notes Care Provider Fa cility 09-15-2020 COVID-19 mRNA, Comir caroline (Pfizer) [facility] 08-25-2020 COVID-19 mRNA, Comir caroline (Pfizer) [facility] Payers Date Payer Category Payer Self-pay [id number] 2019 Unknown [id number] 1959 Medicare [id number] 1959 Unknown [id number] 1954 Unknown [id number] 2.16.84 [id number] 1954 Unknown [id number] .16.84 [id number] 1954 Unknown [id number] .16.84 [id number] 1954 Unknown [id number] 2.16.84 [id number] 1954 Unknown [id number] 2.16.8 [id number] 1954 Unknown [id number] 2.16.8 [id number] Unknown [id number] Unknown [id number] 2.16.8 [id number] Social History Date Type Detail Facility Start: 12-29-2020 End: 12-31-2020 Tobacco smoking status NHIS Ex-smoker (finding) [facility] Start: 1955 Sex Assigned At Male F [facility] Sex Assigned At Sex Assigned At Bir th [facility] Other Start: 07-26-2024 End: 07-27-2024 Sex Male (finding) [facility] Medical Equipment Procedure Code Equipment Code Equipment Origin al Text Equipment Identifier Dates Repair, tendon Orthopaedic bone screw, bioabsorbable ([id number] [facility] Start: 12-31-2020 Clinical Notes 12-02-2020 to 09-07-2024 Note Date & Type Note Facility 09-07-2024 Note [facility] - [facility] [place] Tu is a 69 y.o. year old male patient being seen for follow up heart cath performed on 08/27/[address] Umana. Says his symptoms continue to improve, but still lightheaded at times. Still feel palpitations every once in awhile . Still wearing event monitor s/p hospital discharge. Patient Active Problem List Diagnosis Unstable angina (CMS/FORMERLY [facility]) Encounter for screening for respiratory disorder ILD (interstitial lung disease) (CMS/HCC) Family History Problem Relation Name Age of Onset Other (CABG) Father's Sister Social History Tobacco Use Smoking status: Former Types: Cigarettes Smokeless tobacco: Never HPI Srinivas is seen in follow-up. He is a 69-year-old man who was recently admitted to [facility] with unstable angina. Cardiac catheterization showed mild nonobstructive coronary artery disease he was recommended medical therapy with aspirin and statin therapy. His echocardiogram showed normal ventricular function, normal right-sided pressures and mild aortic valve regurgitation. His ECG showed sinus bradycardia. He was given an event monitor due to palpitations on discharge. Today he reports that he has been doing better. He does not have chest pain. He continues to have shortness of breath on exertion. He has mild leg edema. He has occasional palpitations. Review of Systems Cardiovascular: Positive for chest pain, dyspnea on exertion, leg swelling and palpitations. Respiratory: Positive for cough and wheezing. Neurological: Positive for light-headedness. All other systems reviewed and are negative. Objective Visit Vitals BP 124/72 (BP Location: Left arm, Patient Position: Sitting) Pulse 56 Ht 1.702 m (5' 7 ) Wt 82.1 kg (181 lb) SpO2 97% BMI 28.35 kg/m??? Smoking Status Former BSA 1.97 m??? Physical Exam Constitutional: Appearance: He is well-developed. He is not ill-appearing. HENT: Head: Normocephalic and atraumatic. Nose: Nose normal. Eyes: General: No scleral icterus. Pupils: Pupils are equal, round, and reactive to light. Neck: Thyroid: No thyromegaly. Vascular: No JVD. Cardiovascular: Rate and Rhythm: Normal rate and regular rhythm. Pulses: Radial pulses are 2+ on the right side and 2+ on the left side. Heart sounds: Normal heart sounds. No murmur heard. No friction rub. No gallop. Pulmonary: Effort: Pulmonary effort is normal. No respiratory distress. Breath sounds: Normal breath sounds. No wheezing or rales. Chest: Chest wall: No tenderness. Abdominal: General: Bowel sounds are normal. There is no distension. Palpations: Abdomen is soft. Tenderness: There is no abdominal tenderness. Musculoskeletal: General: No swelling. Cervical back: Neck supple. Skin: General: Skin is warm and dry. Neurological: General: No focal deficit present. Mental Status: He is alert and oriented to person, place, and time. Psychiatric: Mood and Affect: Mood normal. Behavior: Behavior is cooperative. Judgment: Judgment normal. Allergies No Known Allergies Medications Current Outpatient Medications: aspirin 81 mg EC tablet, Take 1 tablet (81 mg) by mouth in the morning., Disp: 30 tablet, Rfl: 0 atorvastatin (Lipitor) 20 mg tablet, Take 1 tablet (20 mg) by mouth at bedtime for 360 doses., Disp: 90 tablet, Rfl: 3 omeprazole (PriLOSEC) [address] capsule, Take 1 capsule (40 mg) by mouth before breakfast. Do not crush or chew., Disp: 90 capsule, Rfl: 3 Recent Labs Hospital Outpatient Visit on 08/28/2024 Component Date Value BSA 08/28/2024 1.9 Admission on 08/25/2024, Discharged on 08/28/2024 Component Date Value Sodium 08/25/2024 137 Potassium 08/25/2024 4.1 Chloride 08/25/2024 104 CO2 08/25/2024 27 Anion Gap 08/25/2024 10 BUN 08/25/2024 16 Creatinine 08/25/2024 0.85 BUN/Creatinine Ratio 08/25/2024 18.8 Glucose 08/25/2024 116 (H) Calcium 08/25/2024 8.2 (L) AST 08/25/2024 16 ALT (SGPT) 08/25/2024 14 Alkaline Phosphatase 08/25/2024 61 Total Protein 08/25/2024 6.1 Albumin 08/25/2024 3.6 Total Bilirubin 08/25/2024 0.4 eGFR 08/25/2024 93.5 Magnesium 08/25/2024 2.0 Ventricular Rate 08/25/2024 50 Atrial Rate 08/25/2024 50 MA Interval 08/25/2024 216 QRS DURATION 08/25/2024 108 QT Interval 08/25/2024 500 QTC CALCULATION(BAZETT) 08/25/2024 455 P [place] 08/25/2024 40 R-[place] 08/25/2024 -22 T Wave [place] 08/25/2024 -14 Auto WBC 08/25/2024 8.44 RBC 08/25/2024 4.03 (L) Hemoglobin 08/25/2024 11.9 (L) Hematocrit 08/25/2024 36.8 (L) MCV 08/25/2024 91.3 MCH 08/25/2024 29.5 MCHC 08/25/2024 32.3 RDW 08/25/2024 13.6 Neutrophils Relative 08/25/2024 80.5 (H) Lymphocytes Relative 08/25/2024 10.5 (L) Monocytes Relative 08/25/2024 8.2 Eosinophils Relative 08/25/2024 0.5 Basophils Relative 08/25/2024 0.1 Neutrophils Absolute 08/25/2024 6.79 Lymphocytes Absolute 08/25/2024 0.89 (L) Monocytes Absolute 08/25/2024 0.69 (more content not included)... [facility] 08-28-2024 Note Hospital Medicine Discharge Summary Final Discharge Diagnosis: Chest pain , atypical Admission Diagnosis: Unstable angina (CMS/FORMERLY [facility]) [I20.0] Hospital course: Srinivas Mae is a 69 y.o. male with no significant past medical history. Patient presented with shortness of breath, chest pain for 1 month. Patient denies history of heart failure, heart attack, hypertension, diabetes mellitus, hyperlipidemia or any heart disease. Patient is a former smoker. He smoked for 10 years and quitted back in 1994. Patient was exertional shortness of breath with intermittent chest pain radiating to left shoulder x 1 month. Patient also endorsed orthopnea. Patient was transferred from the [facility] for further evaluation and treatment of chest pain and unstable angina. Vitals remarkable for bradycardia and negative troponins. EKG showed sinus bradycardia with first-degree AV block. Patient was started on Heparin infusion and admitted for further workup Echo done and showed EF 55%. Cardiac cath done 08/27: Mild nonobstructive coronary artery disease. Patient to have 30 days event monitor before discharge Meds were adjusted and being discharge today with F/U with Cardiology in 2 weeks and PCP 1 week Surgical, Invasive or Diagnostic Procedures Done During Admission: Cardiac Cath Consultations During Admission: Cardiology Dear Dr. Belle MD, Srinivas is advised to follow up with you within 1-2 weeks. Items to follow up in ambulatory setting: None Follow-up with: Cardiology Scheduled appointments: Future Appointments Date Time Provider Department Center 09/07/2024 11:00 AM Kashmir Umana MD [facility] Your medication list START taking these medications Instructions Last Dose Given Next Dose Due aspirin 81 mg EC tablet Start taking on: August 29, 2024 Take 1 tablet (81 mg) by mouth in the morning. atorvastatin 20 mg tablet Commonly known as: Lipitor Take 1 tablet (20 mg) by mouth in the morning for 30 doses. dilTIAZem CD 120 mg 24 hr capsule Commonly known as: Cardizem CD Start taking on: August 29, 2024 Take 1 capsule (120 mg) by mouth in the morning. CONTINUE taking these medications Instructions Last Dose Given Next Dose Due omeprazole [address] capsule Commonly known as: PriLOSEC Where to Get Your Medications These medications were sent to [facility]/pharmacy #[id number] [place], [place] - [address] [address] aspirin 81 mg EC tablet atorvastatin 20 mg tablet dilTIAZem CD 120 mg 24 hr capsule Srinivas has No Known Allergies. Disposition: Home or Self Care () Discharge Condition: Stable Code Status: Full Code Diagnostic Results Hematology: Results from last 7 days Lab Units 08/28/24 0329 08/27/24 0615 08/26/24 1413 CRP mg/L -- -- 48.5* WBC AUTO 10*3/uL 6.79 7.12 -- HEMOGLOBIN g/dL 11.3* 11.7* -- HEMATOCRIT % 34.6* 35.9* -- MCV fL 92.3 92.1 -- PLATELETS AUTO 10*3/uL 281 272 -- Chemistry: Results from last 7 days Lab Units 08/28/24 0329 08/27/24 0616 08/26/24 0441 08/25/24 1914 SODIUM mmol/L 137 138 137 137 POTASSIUM mmol/L 4.4 4.3 4.4 4.1 CHLORIDE mmol/L 105 104 105 104 CO2 mmol/L 28 30 27 27 BUN mg/dL 19 15 15 16 CREATININE mg/dL 0.88 0.87 0.83 0.85 GLUCOSE mg/dL 110* 99 111* 116* MAGNESIUM mg/dL 1.8* -- -- 2.0 CALCIUM mg/dL 8.7 8.6 8.1* 8.2* Results from last 7 days Lab Units 08/25/24 1914 AST U/L 16 ALT U/L 14 ALK PHOS U/L 61 BILIRUBIN TOTAL mg/dL 0.4 Diet at the time of discharge: regular diet and cardiac diet Activity: Normal activity as tolerated Objective Blood pressure 122/73, pulse 60, temperature 36.6 ???C (97.9 ???F), temperature source Temporal, resp. rate 15, height 1.702 m (5' 7 ), weight 76.6 kg (168 lb 14.4 oz), SpO2 96%. General: Alert and oriented x3. Cardiology: Normal rate, regular rhythm. Lungs: Clear to auscultation, no wheezes, rales or rhonchi, symmetric air entry. Abdomen: Soft, non tender, non distended. Extremities: No pitting edema. Neurology: No focal neuro deficit noted. Total time for discharge - review of data, exam, discussion with providers and care-team, med-rec and orders, arranging follow up, counseling of patient and/or family and documentation was 60 minutes. Signed David Cleveland MD [facility] Medicine 08/28/2024 1:32 PM CC: MD Belle [facility] 08-28-2024 Note Cardiology Inpatient Progress Note Patient seen for chest pain Subjective 08/28/24 Patient evaluated at bedside, had extensive conversation about presenting symptoms. He continues to have episodes of heaviness in the left side of his chest that are intermittent and brief, as well as twinges of discomfort. At home he has had flutters, that come and go randomly. He had twinges about 1215 today, and telemetry indicates sinus rhythm with occasional PACs only. This was discussed. Results of cardiac testing also reviewed, and reassured about findings. He had been given diltiazem CD120 mg this morning, and heart rates remained in the high 50s-60s, he had dizziness and lightheadedness, and I recommended that this be discontinued. Also recommended 30 day event monitor. He is scheduled for OPFU with Dr. Umana in about a week. He also c/o feeling fatigue and low O2 sats since fall when turned on furnace, and few weeks ago realized was leaking CO below his bedroom, now fixed, but concerned for long-term effects. I reassured him about no apparent cardiac effects, but recommend discuss with his PCP. 08/27/24: Patient seen at bedside. No unexpected acute events reported overnight. Patient complaining of lightlessness and nausea today morning. He endorse more chest pain on deep breathing. TELEMETRY: Sr with rare PAC Objective: No Known Allergies Scheduled meds: aspirin, 81 mg, oral, Daily atorvastatin, 20 mg, oral, Daily dilTIAZem CD, 120 mg, oral, Daily pantoprazole, 40 mg, oral, Daily PRN medications: acetaminophen, famotidine, melatonin, prochlorperazine, sennosides-docusate sodium, Insert peripheral IV AND Saline lock IV AND sodium chloride Patient Vitals for the past 24 hrs: BP Temp Temp src Pulse Resp SpO2 Weight 08/28/24 0931 119/75 -- -- -- -- -- -- 08/28/24 0800 127/71 36.8 ???C (98.2 ???F) Temporal 54 17 96 % -- 08/28/24 0500 -- -- -- -- -- -- 76.6 kg (168 lb 14.4 oz) 08/28/24 0400 107/80 -- -- 50 16 95 % -- 08/28/24 0000 105/71 -- -- 55 12 98 % -- 08/27/24 2230 97/64 37 ???C (98.6 ???F) -- -- -- -- -- 08/27/241999 113/73 -- -- 65 20 94 % -- 08/27/24 1942 121/72 36.7 ???C (98.1 ???F) Temporal 66 -- 96 % -- 08/27/241940 -- -- -- -- 22 -- -- 08/27/24 1900 131/80 36.4 ???C (97.6 ???F) Temporal 73 24 96 % -- 08/27/24 1800 122/80 36.4 ???C (97.6 ???F) Temporal 62 20 97 % -- 08/27/24 1700 115/83 36.4 ???C (97.6 ???F) Temporal 70 20 95 % -- 08/27/24 1600 115/75 36.4 ???C (97.6 ???F) Temporal 64 21 94 % -- 08/27/24 1500 127/87 36.6 ???C (97.9 ???F) Temporal 58 20 96 % -- 08/27/24 1431 131/77 36.6 ???C (97.8 ???F) Temporal 53 14 96 % -- 08/27/24 1400 122/79 36.6 ???C (97.9 ???F) Temporal 61 12 96 % -- 08/27/24 1345 121/74 36.6 ???C (97.9 ???F) Temporal 56 16 96 % -- 08/27/24 1330 110/76 36.6 ???C (97.8 ???F) Temporal 60 14 96 % -- 08/27/24 1315 120/76 36.6 ???C (97.9 ???F) Temporal 60 15 95 % -- 08/27/24 1300 121/80 36.6 ???C (97.9 ???F) Temporal 59 20 96 % -- 08/27/24 1251 122/78 36.6 ???C (97.9 ???F) Temporal 63 18 -- -- 08/27/24 1239 -- -- -- -- -- 98 % -- 08/27/24 1238 117/77 -- -- 65 19 99 % -- 08/27/24 1144 -- -- -- -- -- 98 % -- 08/27/24 1144 124/77 -- -- 60 16 98 % -- Physical Examination: GENERAL: AOx3, in no acute distress. HEAD: Atraumatic, normocephalic. EYES: MARISA, EOMI. NECK: No JVD present. CARDIAC: RRR. No murmur, rubs, or gallops. RESPIRATORY: dry crackles both lower herrera, right more than left. Does not clear with cough. no increased effort of breathing. ABDOMEN: Soft, nontender, nondistended. EXTREMITIES: No lower extremity edema, peripheral pulses are 2+ bilaterally. NEURO: No focal deficits Relevant Lab Results Labs: Lab Results Component Value Date WBC 6.79 08/28/2024 HGB 11.3 (L) 08/28/2024 HCT 34.6 (L) 08/28/2024 MCV 92.3 08/28/2024 PLT 281 08/28/2024 Lab Results Component Value Date NA 137 08/28/2024 K 4.4 08/28/2024 CL 105 08/28/2024 ANIONGAP 8 08/28/2024 BUN 19 08/28/2024 CREATININE 0.88 08/28/2024 CALCIUM 8.7 08/28/2024 MG 1.8 (L) 08/28/2024 Lab Results Component Value Date BILITOT 0.4 08/25/2024 ALKPHOS 61 08/25/2024 AST 16 08/25/2024 ALT 14 08/25/2024 PROT 6.1 08/25/2024 ALBUMIN 3.6 08/25/2024 Lab Results Component Value Date CHOLESTEROL 157 08/26/2024 TRIGLYCERIDES 71 08/26/2024 HDL 44 08/26/2024 LDL CALC 99 08/26/2024 No results found for: THYROID , TSH , FREE T4 No results found for: DIGOXIN LVL Lab Results Component Value Date HGBA1C 6.4 (H) 08/26/2024 Lab Results Component Value Date TROPONIN I 0.00 08/26/2024 TROPONIN I 0.00 08/26/2024 TROPONIN I 0.00 08/25/2024 Lab Results Component Value Date BNP 53 08/26/2024 Last lab values have been reviewed with patient at today's visit. Encounter Date: 08/25/24 ECG 12 lead Result Value Ventricular Rate 52 Atrial Rate 52 MA Interval 218 QRS DURATION 114 QT Interval 466 QTC C (more content not included)... [facility] 08-27-2024 Note Cardiac cath came ba ck to show minor coronary artery disease. His echo is normal. Next I think the patient can be discharged home on aspirin 81 mg daily and Lipitor 20 mg daily. He should follow-up with his PCP regarding elevated HbA1c and regarding shortness of breath Follow-up with cardiology in about 2 weeks as outpatient [facility] 08-27-2024 Note Hospital Medicine Daily Progress Note - 08/27/2024 3:07 PM; Room: [address] [place] [address] Admission: 08/25/2024 5:41 PM; Length of stay: 2 days THE HOSPITALIST TEAM PREFERS TO USE [employer] FOR NON-URGENT COMMUNICATION 7AM-7PM. IF I DO NOT RESPOND WITHIN 20 MINUTES OR URGENT MATTERS, PLEASE CALL THROUGH THE [employer] MOTOR DRIVER. FROM 7PM-7AM, PLEASE PAGE [phone](COVR). Code Status: Full Code Barriers to Discharge: Cardiac workup Expected Discharge Date: 1 day Discharge Destination: home Overview Patient is seen for evaluation and management of chest pain/UA Subjective Seen today in his room, alert and C/O occasional chest pain episodes and some headaches. HR lower 40's/upper 50's Physical Exam Constitutional: General: He is not in acute distress. Cardiovascular: Rate and Rhythm: Regular rhythm. Bradycardia present. Pulses: Normal pulses. Heart sounds: Normal heart sounds. No murmur heard. Pulmonary: Effort: Pulmonary effort is normal. Breath sounds: Normal breath sounds. No wheezing or rhonchi. Abdominal: General: Bowel sounds are normal. Palpations: Abdomen is soft. Musculoskeletal: General: Normal range of motion. Skin: General: Skin is warm and dry. Coloration: Skin is not pale. Neurological: General: No focal deficit present. Mental Status: He is alert and oriented to person, place, and time. Visit Vitals BP 127/87 (BP Location: Right leg, Patient Position: Lying) Pulse 58 Temp 36.6 ???C (97.9 ???F) (Temporal) Resp 20 Intake/Output Summary (Last 24 hours) at 08/27/2024 1507 Last data filed at 08/27/2024 1442 Gross per 24 hour Intake 1721.34 ml Output 6 ml Net 1715.34 ml Estimated body mass index is 25.72 kg/m??? as calculated from the following: Height as of this encounter: 1.702 m (5' 7 ). Weight as of this encounter: 74.5 kg (164 lb 3.2 oz). Active Inpatient Problems Principal Problem: Unstable angina ([facility]FORMER[facility]) Assessment and Plan 1. Chest pain, R/O Unstable angina EKG showed sinus bradycardia with first-degree AV block Troponins x 3 negative Continue telemetry and patient to continue for now on heparin drip Echo showed EF 55% with mild AR. Patient likely to have cardiac cath today Appreciate cardiology input Scheduled Meds pantoprazole, 40 mg, oral, Daily Pertinent Investigations Hematology: Results from last 7 days Lab Units 08/27/24 0615 08/26/24 1413 08/26/24 0441 CRP mg/L -- 48.5* -- WBC AUTO 10*3/uL 7.12 -- 7.72 HEMOGLOBIN g/dL 11.7* -- 11.3* HEMATOCRIT % 35.9* -- 35.2* MCV fL 92.1 -- 92.6 PLATELETS AUTO 10*3/uL 272 -- 256 Chemistry: Results from last 7 days Lab Units 08/27/24 0616 08/26/24 0441 08/25/24 1914 SODIUM mmol/L 138 137 137 POTASSIUM mmol/L 4.3 4.4 4.1 CHLORIDE mmol/L 104 105 104 CO2 mmol/L 30 27 27 BUN mg/dL 15 15 16 CREATININE mg/dL 0.87 0.83 0.85 GLUCOSE mg/dL 99 111* 116* MAGNESIUM mg/dL -- -- 2.0 CALCIUM mg/dL 8.6 8.1* 8.2* Results from last 7 days Lab Units 08/25/24 1914 AST U/L 16 ALT U/L 14 ALK PHOS U/L 61 BILIRUBIN TOTAL mg/dL 0.4 Historical Values: (Includes values prior to this admission) Lab Results Component Value Date HDL 44 08/26/2024 LDL 113 08/26/2024 No results found for: [id number] , IRON , TIBC , C3 , C4 , MIKE , CANCA , ASO , PSA , CEA , CA125 , CA199 , AFP , CA153 Imaging Cardiac catheterization PROCEDURE PHYSICIAN: Kashmir Umana MD . Indications: Srinivas Mae is a 69 y.o. male who is admitted with unstable angina. He was referred for cardiac catheterization. Assistants: Dr Omayra Cantu. Dr Ronel Barth. Procedure Performed: Bilateral selective coronary angiogram. Access into the left radial artery under ultrasound guidance. Methods: Procedure was explained to the patient with risks and benefits; he signed informed consent. he was brought to the labor and delivery nurse in a fasting state. The left wrist area was prepped and draped in usual fashion. Micropuncture technique was used for access in the left radial artery. A 6-Moldovan x 11 cm sheath was placed. Verapamil was given through the sheath, and heparin was administered intravenously. Bilateral selective coronary angiography was then performed using 6-Moldovan JL4 diagnostic catheter for engagement of the left coronary artery and AL1 diagnostic catheter for engagement of the right coronary artery. Catheters were removed. Hemostasis was achieved by TR band in the radial artery. he tolerated the procedure well and was transferred back to the hospital room. Hemodynamic Data: AO: 124/68 (91) Coronary angiography: This is a right-dominant circulation. Left Main: This arises from the left coronary cusp. It bifurcates into left anterior descending and circumflex vessels. This has mild luminal irregularities but no obstructive lesions. Left anterior descending: This is angiographically normal. This has mild disease around 20% stenosis in the mid segment but no obstructi (more content not included)... [facility] 08-27-2024 Note 08/27/24 1416 Admission Assessment Questions Verify insurance with patient Yes Do you understand medical disease or what brought you into the hospital? Yes Who is your current PCP? Chuck Odonnell MD Can I schedule a follow up appointment for you at the time of discharge? Yes (Midday bewteen 05-07 if possible. PCP has moved offices now at [facility] [place] [phone] fax [phone]) Do you understand why you are taking your current medications? Yes Are you taking your medications as prescribed? Yes Did patient provide teach back? No Pharmacy Bedside Delivery Status Not Interested Does the patient have a rehabilitation case coordinator assigned to them through their insurance? No Living Arrangement (Current/Prior to Hospitalization) Private residence (lives with dad, to help take care of his dad. lives with spouse) Does the patient have history of HHC or SNF? No Assistive Device Not applicable Patient's goal for discharge home Was patient reminded that goal for discharge is 11am? Yes Does the patient have transportation at discharge? Yes Type of Residence Private residence Is PT/OT appropriate? No Is PT/OT ordered? No Is SW consult appropriate? No Is SW consult ordered? No Do you understand the benefits of MyChart? Yes Were you able to send link and activate MyChart? Yes [facility] 08-27-2024 Note Patient: Srinivas bustillos Procedure Information Date/Time: 08/27/24 1630 Procedure: Coronary angiography Location: [facility] / [facility] (Cath) Providers: Kashmir Umana MD Clinical information reviewed: Allergies Physical Exam Airway Mallampati: II TM distance: <3 FB Cardiovascular Rhythm: regular Rate: normal Dental Pulmonary Abdominal Anesthesia Plan ASA 3 other (Conscious ) Anesthetic plan and risks discussed with patient. Use of blood products discussed with patient who consented to blood products. Plan discussed with attending. Additional Equipment Requests [facility] 08-27-2024 Note ------ Attestation signed by Gemma Wagner MD at 08/27/2024 4:52 PM I personally saw and examined the patient on the same date of service as resident/fellow Dr Cleveland. I discussed the findings and therapeutic plan with the resident/fellow Dr Cleveland. I agree with the documentation, except for any edits/updates below. Teaching Physician's Revisions: None Patient echo came back and showed normal left ventricle systolic function without wall motion abnormalities, no evidence of diastolic dysfunction or pulmonary hypertension. He has mild aortic insufficiency He is going for cardiac catheterization this afternoon Gemma Wagner MD, [facility] ------ Cardiology Progress Note Subjective Subjective: Patient seen at bedside. No unexpected acute events reported overnight. Patient complaining of lightlessness and nausea today morning. He endorse more chest pain on deep breathing. Objective: Patient Vitals for the past 24 hrs: BP Temp Temp src Pulse Resp SpO2 Weight 08/27/24 0500 -- -- -- -- -- -- 74.5 kg (164 lb 3.2 oz) 08/27/24 0408 -- -- -- 52 -- -- -- 08/27/24 040 107/66 -- -- -- 20 95 % -- 08/27/24 0000 105/70 -- -- 57 14 98 % -- 08/26/241999 109/73 37 ???C (98.6 ???F) Temporal 65 19 99 % -- 08/26/24 1621 102/64 36.2 ???C (97.2 ???F) Temporal 59 18 99 % -- 08/26/24 1150 119/75 36.8 ???C (98.2 ???F) Temporal 55 16 100 % -- Physical Examination: GENERAL: AOx3, in no acute distress. HEAD: Atraumatic, normocephalic. EYES: MARISA, EOMI. NECK: No JVD present. CARDIAC: RRR. No murmur, rubs, or gallops. RESPIRATORY: CTAB, no increased effort of breathing. ABDOMEN: Soft, nontender, nondistended. EXTREMITIES: No lower extremity edema, peripheral pulses are 2+ bilaterally. NEURO: No focal deficits Relevant Lab Results Encounter Date: 08/25/24 ECG 12 lead Result Value Ventricular Rate 52 Atrial Rate 52 MA Interval 218 QRS DURATION 114 QT Interval 466 QTC CALCULATION(BAZETT) 433 P [place] 57 R-[place] 7 T Wave [place] 12 Impression Sinus bradycardia with 1st degree A-V block Nonspecific T wave abnormality Abnormal ECG When compared with ECG of 25-AUG-2024 18:17, Premature atrial complexes are no longer Present Confirmed by Kashmir Umana ([id number]) on 08/26/2024 7:28:50 PM Lab Results Component Value Date CKTOTAL 49.0 08/25/2024 CKMB 1.1 08/25/2024 CKMBINDEX 2.2 (H) 08/25/2024 TROPONINI 0.00 08/26/2024 No echocardiogram results found for the past 12 months No nuclear medicine results found for the past 12 months Relevant Imaging Results ECG 12 lead Sinus bradycardia with 1st degree A-V block Nonspecific T wave abnormality Abnormal ECG When compared with ECG of 25-AUG-2024 18:17, Premature atrial complexes are no longer Present Confirmed by Kashmir Umana ([id number]) on 08/26/2024 7:28:50 PM Electrocardiogram, 12-lead Sinus bradycardia with 1st degree A-V block with Premature atrial complexes Minimal voltage criteria for LVH, may be normal variant ( R in aVL ) Nonspecific T wave abnormality Abnormal ECG No previous ECGs available Confirmed by Kashmir Umana ([id number]) on 08/26/2024 7:28:18 PM Assessment Assessment: Unstable angina with intermittent SOB with positive orthopnea x 1 month. Radiating chest pain/ chest tighttness into the neck and left shoulder. The pain is intermittent and can happens at rest not related to excertion lasting for 5-10 mis or 1 hour sometimes. Normal cardiac biomarker. EKG demonstrated sinus bradycardia with first-degree AV block with premature atrial complex. No history of hypertension, diabetes mellitus, hyperlipidemia. Sinus bradycardia with. AV block GERD Former smoker(quit in 1994) Patient has not been following primary care physician. Follow-up on labs for A1c, lipid profile. Plan: Plan for coronary angiography given his age and typical angina symptoms, and symptoms which is relieved by nitroglycerin. Obtain echocardiogram We will discontinue nitroglycerin transdermal patch as patient was complaining for the nausea, lightheadedness, and headache. Continue heparin infusion. Trend troponin, repeat cycle counter telemetry Replete electrolytes, maintain K>4, Mg>2 Cardiology will continue to follow along Baljeet Cleveland MD Internal Medicine Resident, PGY-2 [facility] 08-26-2024 Note Hospital Medicine Daily Progress Note - 08/26/2024 9:49 AM; Room: [address] [place] [address] Admission: 08/25/2024 5:41 PM; Length of stay: 1 days THE HOSPITALIST TEAM PREFERS TO USE [employer] FOR NON-URGENT COMMUNICATION 7AM-7PM. IF I DO NOT RESPOND WITHIN 20 MINUTES OR URGENT MATTERS, PLEASE CALL THROUGH THE TOW MOTOR DRIVER. FROM 7PM-7AM, PLEASE PAGE [phone](COVR). Code Status: Full Code Barriers to Discharge: Cardiac workup Expected Discharge Date: 1-2 days Discharge Destination: home Overview Patient is seen for evaluation and management of chest pain/UA Subjective Seen today in his room, alert and C/O occasional chest pain episodes and some headaches. HR lower 40's/upper 50's Physical Exam Constitutional: General: He is not in acute distress. Cardiovascular: Rate and Rhythm: Regular rhythm. Bradycardia present. Pulses: Normal pulses. Heart sounds: Normal heart sounds. No murmur heard. Pulmonary: Effort: Pulmonary effort is normal. Breath sounds: Normal breath sounds. No wheezing or rhonchi. Abdominal: General: Bowel sounds are normal. Palpations: Abdomen is soft. Musculoskeletal: General: Normal range of motion. Skin: General: Skin is warm and dry. Coloration: Skin is not pale. Neurological: General: No focal deficit present. Mental Status: He is alert and oriented to person, place, and time. Visit Vitals BP 96/67 (BP Location: Left arm, Patient Position: Lying) Pulse 50 Temp 36 ???C (96.8 ???F) (Temporal) Resp 16 Intake/Output Summary (Last 24 hours) at 08/26/2024 0949 Last data filed at 08/26/2024 0600 Gross per 24 hour Intake 360.29 ml Output 1 ml Net 359.29 ml Estimated body mass index is 26.63 kg/m??? as calculated from the following: Height as of this encounter: 1.702 m (5' 7 ). Weight as of this encounter: 77.1 kg (170 lb). Active Inpatient Problems Principal Problem: Unstable angina ([facility]) Assessment and Plan 1. Chest pain, R/O Unstable angina EKG showed sinus bradycardia with first-degree AV block Troponins x 3 negative Continue telemetry and patient to continue for now on heparin drip Echo pending, and patient likely to have cardiac cath tomorrow Appreciate cardiology input VTE Prophylaxis: IV heparin Scheduled Meds heparin, 0-28 Units/kg/hr, Last Rate: 13 Units/kg/hr (08/26/24448) Pertinent Investigations Hematology: Results from last 7 days Lab Units 08/26/24 04408/25/241913 WBC AUTO 10*3/uL 7.72 8.44 HEMOGLOBIN g/dL 11.3* 11.9* HEMATOCRIT % 35.2* 36.8* MCV fL 92.6 91.3 PLATELETS AUTO 10*3/uL 256 251 Chemistry: Results from last 7 days Lab Units 08/26/24 04408/25/241913 SODIUM mmol/L 137 137 POTASSIUM mmol/L 4.4 4.1 CHLORIDE mmol/L 105 104 CO2 mmol/L 27 27 BUN mg/dL 15 16 CREATININE mg/dL 0.83 0.85 GLUCOSE mg/dL 111* 116* MAGNESIUM mg/dL -- 2.0 CALCIUM mg/dL 8.1* 8.2* Results from last 7 days Lab Units 08/25/241913 AST U/L 16 ALT U/L 14 ALK PHOS U/L 61 BILIRUBIN TOTAL mg/dL 0.4 Historical Values: (Includes values prior to this admission) Lab Results Component Value Date HDL 44 08/26/2024 LDL 113 08/26/2024 No results found for: [id number] , IRON , TIBC , C3 , C4 , MIKE , CANCA , ASO , PSA , CEA , CA125 , CA199 , AFP , CA153 Imaging ECG 12 lead Sinus bradycardia with 1st degree A-V block Nonspecific T wave abnormality Abnormal ECG When compared with ECG of 25-AUG-2024 18:17, (unconfirmed) Premature atrial complexes are no longer Present Discharge Planning Signed David Cleveland MD Hospital Medicine 08/26/2024 9:49 AM [facility] 08-26-2024 Note Case was discussed w Satispay the GEOVANNA on 08/25/2024. I agree with the history, physical, assessment, and plan of care. I discussed the findings and therapeutic plan. I agree with the documentation, except for any updates below. Louie Red MD [facility] 08-26-2024 Note Chest pain X 1 month with intermittent shortness of breath and pain radiating to left shoulder No history HTN, HLD, [place], CAD ECG shows sinus bradycardia with first-degree AV block with premature atrial complexes, minimal voltage criteria for LVH, may be normal variant (R in aVL), nonspecific T wave abnormality. Abnormal ECG Cardiac enzymes negative at [facility]. Will trend troponin every 6 hours X3 CBC and CMP predominantly unremarkable Magnesium stable 2.0 CK-MB index 2.2 Normotensive on monitor Cardiology consulted and will follow-up in a.m. Patient started on heparin drip Continue nitroglycerin transdermal N.p.o. at midnight [facility] 08-25-2024 Note Hospital Medicine History and Physical 08/26/2024 1:32 AM THE HOSPITALIST TEAM PREFERS TO USE [employer] FOR NON-URGENT COMMUNICATION 7AM-7PM. IF I DO NOT RESPOND WITHIN 20 MINUTES OR URGENT MATTERS, PLEASE CALL THROUGH THE TOW MOTOR DRIVER. FROM 7PM-7AM, PLEASE PAGE [phone](COVR). Chief Complaint No chief complaint on file. History of Present Illness Srinivas Mae is an 69 y.o. male who came from [facility] ED with chest pain/unstable angina X1 month. Patient reports he did go to the ER 1 other time within the last month and he was discharged home from the ER. Patient states he does have a PCP however PCP moved out of the area and he does not follow-up with him at this time. No significant past medical history. Patient denies any history of heart attack, HTN, high cholesterol, or heart disease. Troponin negative. Will trend. Was started on heparin gtt and nitroglycerine patch while at [facility]. Will continue. Patient reports shortness of breath with the chest pain however denies any shortness of breath at present and reports chest pain is minimal to nearly nonexistent at this time. Patient direct admitted from [facility] to cardiac stepdown for further evaluation and treatment of chest pain and unstable angina. Cardiology consulted and will follow-up in a.m. N.p.o. at midnight for possible heart cath tomorrow. Review of System and Physical Exam Temp: [36.1 ???C (97 ???F)-36.6 ???C (97.8 ???F)] 36.6 ???C (97.8 ???F) Heart Rate: [47-57] 51 Resp: [14-20] 14 BP: (91-106)/(62-72) 91/62 Physical Exam Vitals and nursing note reviewed. Constitutional: General: He is not in acute distress. Appearance: Normal appearance. He is normal weight. He is not ill-appearing, toxic-appearing or diaphoretic. HENT: Head: Normocephalic. Nose: Nose normal. Mouth/Throat: Mouth: Mucous membranes are moist. Pharynx: Oropharynx is clear. Eyes: Extraocular Movements: Extraocular movements intact. Conjunctiva/sclera: Conjunctivae normal. Pupils: Pupils are equal, round, and reactive to light. Cardiovascular: Rate and Rhythm: Regular rhythm. Bradycardia present. Pulses: Normal pulses. Heart sounds: Normal heart sounds. No murmur heard. Pulmonary: Effort: Pulmonary effort is normal. Breath sounds: Normal breath sounds. No wheezing or rhonchi. Abdominal: General: Bowel sounds are normal. Palpations: Abdomen is soft. Musculoskeletal: General: Normal range of motion. Cervical back: Normal range of motion and neck supple. Right lower leg: No edema. Left lower leg: No edema. Skin: General: Skin is warm and dry. Capillary Refill: Capillary refill takes less than 2 seconds. Coloration: Skin is not pale. Neurological: General: No focal deficit present. Mental Status: He is alert and oriented to person, place, and time. Psychiatric: Mood and Affect: Mood normal. Behavior: Behavior normal. Review of Systems Constitutional: Negative for activity change, fatigue and fever. HENT: Negative. Eyes: Negative. Respiratory: Positive for shortness of breath. Cardiovascular: Positive for chest pain. Negative for palpitations and leg swelling. Gastrointestinal: Negative for constipation, diarrhea, nausea and vomiting. Endocrine: Negative. Genitourinary: Negative. Negative for difficulty urinating and dysuria. Musculoskeletal: Negative. Skin: Negative. Neurological: Negative. Negative for dizziness and light-headedness. Hematological: Negative. Psychiatric/Behavioral: Negative. Assessment and Plan Assessment & Plan Unstable angina (CMS/HCC) Chest pain X 1 month with intermittent shortness of breath and pain radiating to left shoulder No history HTN, HLD, [place], CAD ECG shows sinus bradycardia with first-degree AV block with premature atrial complexes, minimal voltage criteria for LVH, may be normal variant (R in aVL), nonspecific T wave abnormality. Abnormal ECG Cardiac enzymes negative at [facility]. Will trend troponin every 6 hours X3 CBC and CMP predominantly unremarkable Magnesium stable 2.0 CK-MB index 2.2 Normotensive on monitor Cardiology consulted and will follow-up in a.m. Patient started on heparin drip Continue nitroglycerin transdermal N.p.o. at midnight I have reviewed/discussed this patient case with Dr. Louie Red MD VTE Prophylaxis: IV heparin ----- Focus of this inpatient stay will remain on problems that need acute care setting for care. We will review available studies and will order additional labs, imaging and other studies as appropriate. As needed medicines are ordered as appropriate. VTE Prophylaxis will be ordered as appropriate. Please see above for management plan for individual hospital problems. Home medications are reviewed and will be continued as appropriate. Patient will be continued to be followed during this hospital stay by a member of [facility]. Past Medical History No past me (more content not included)... [facility] 07-26-2024 Evaluation note Diagnosis Onset Date Resolution Dyspnea acute July 26, 2024 10:40am Shortness of breath acute Janua ry 2024 10:40am [facility] Work Phone: 1(175) 577-705010-07-2021 Evaluation note* Encounter Date Diagnosis Assessment Notes Treatment Notes Treatment Clinical Notes Apr, Rupture of right distal biceps tendon, subsequent encounter (ICD-10 - S46.211D) Patient instructed on strengthening exercises. Activity as tolerated Apr, Injury of cutaneous sensory nerve at forearm level, right arm, subsequent encounter (ICD-10 - S54.31XD) Apr, Other specified postprocedural states (ICD-10 - Z98.890) [facility] Other 06-01-2021 History general Narrative - Reported* Type Description Date Medical History denies significant past medical history Surgical History hernia repair 2004 Surgical History EGD 2009 Surgical History right distal biceps reapir 12/21 20 [facility] Other Evaluation noteNo assessment information available [facility] Other Evaluation note* Diagnosis Onset Date Resolution Status Admit Date Dyspnea acute July 26, 2024 10:40am Shortness of breath acute Janua 2024 10:40am [facility] Work Phone: Summary Purpose Family History [...] section and content) DATE CREATED AUTHOR 10/06/2018 [facility] DATE CREATED AUTHOR AUTHOR'S ORGANIZ ATION 05/10/2022 [facility] DATE CREATED AUTHOR AUTHOR'S ORGANIZ ATION 12/13/2023 [facility] EPIC DATE CREATED AUTHOR AUTHOR'S ORGANIZ ATION 08/06/2024 [facility] DATE CREATED AUTHOR AUTHOR'S ORGANIZ ATION 09/09/2024 [facility] DATE CREATED AUTHOR AUTHOR'S ORGANIZ ATION 09/15/2024 [facility] Goals (unrecognized section and content) Goals may [...] July 26, 2024 End: July 26, 2024 Bernadette Mercado APRN Attending [...] BE BASED ON THE PRIMARY CLINICAL RECORDS. [facility] [employer] [facility]. provides no warranty or guarantee of the accuracy or completeness of information in this document.
[2024-09-17] MEDS: ALBUTEROL SULFATE 2.5 MG/3 ML VIAL NEB IH (13:52)
--- NOTE | 2024-09-17 13:57 | RT_ITS ---
[facility] Test Date: 2024-09-17 Pat Name: SRINIVAS MCKEON Department: Room: - Gender: Male Vp Scientific Affairs: Anton Shin RRT : 1955 Requested By: KASHMIR UMANA M.D. Order Number: [id number] Reading MD: Hank Isaac Interpretive Statements Pulmonary function testing was completed according to ATS criteria. Findings were considered accurate and reproducible. Both pre- and post-bronchodilator values utilized for spirometry. Spirometry (based on pre-bronchodilator values): -FEV1/FVC: Normal @ 80% -FEV1: Normal @ 97% -FVC: Normal @ 89% -There is a positive bronchodilator resposne in DQW13-62%, but diagnostic and clinical significance is unclear. Lung volumes by plethysmography: -RV: Reduced @ 76% -TLC: Low normal @ 82% Diffusion capacity: -DLCO: Moderate reduction @ 62% when corrected for Hb 13.2g/dL Impressions: -Normal spirometry. Lung volumes trend towards mild restriction. Moderate diffusion impairment. This pattern can be seen in, but not restricted to, cardiopulmonary vascular disorders and early interstitial lung disease. Clinical correlation required. Electronically Signed On 09-19-2024 18:03:16 EDT by Hank Isaac
== END 2024-09-17 13:03 | disposition home or self-care (01) ==
LOC: CARD 13:02
PROVIDERS: PCP Family Medicine; Visit Provider Internal Medicine Interventional Cardiology
DX: R06.00 Dyspnea, unspecified (principal)
CPT/HCPCS: 94060; 94726; 94729

== ENCOUNTER 2024-10-11 11:25 | Outpatient (OUT) | payer MEDICARE, OTHER, SELFPAY ==
[2024-10-11 12:37] LABS: Erythrocyte Sedimentation Rate 7 mm/hr (<=20)
[2024-10-12 06:44] LABS: Rheumatoid Factor (RF) <10.0 IU/mL (<14.0)
[2024-10-12 13:08] LABS: Anti-CCP Ab, IgG/IgA 11 units (0-19)
[2024-10-12 14:08] LABS: ANA Direct Negative (Negative); Antiscleroderma-70 Antibodies <0.2 AI (0.0-0.9)
[2024-10-12 16:09] LABS: Angiotensin-Converting Enzyme 68 U/L (14-82)
[2024-10-15 20:17] LABS: Anti-GBM Antibodies <0.2 units (0.0-0.9); Anti-MPO Antibodies <0.2 units (0.0-0.9); Anti-PR3 Antibodies <0.2 units (0.0-0.9); Cytoplasmic (C-ANCA) <1:20 titer (Neg:<1:20); Perinuclear (P-ANCA) <1:20 titer (Neg:<1:20)
== END 2024-10-11 11:26 | disposition home or self-care (01) ==
LOC: LAB 11:27
PROVIDERS: PCP Family Medicine; Visit Provider Internal Medicine
DX: J84.9 Interstitial pulmonary disease, unspecified (principal)
CPT/HCPCS: 36415; 82164; 83516; 85652; 86037; 86038; 86200; 86235; 86431